=== PATIENT | male | born 1960 | race Two or more races ===

== ENCOUNTER 2016-09-26 12:13 | Inpatient (IN) | payer OTHER ==
[2016-09-26] MEDS ORDERED: PIPERACILLIN/TAZOB 3.375 GM/50 ML PRE-DOCKED IVPB ONE (15:31)
[2016-09-26] MEDS ORDERED: VANCOMYCIN 1,000 MG in DEXTROSE 5%-WATER - 250 ML IVPB ONE (15:31)
[2016-09-26 15:53] LABS: BASOPHIL 0.6 % (0-2.0); EOSINOPHIL 3.3 % (0-4.5); MCH 29.2 pg (25.7-33.7); MCHC 33.7 g/dl (32.0-35.9); MEAN CELL VOLUME 86.7 fl (80-96); MEAN PLT VOLUME 8.5 fl (7.5-11.1); NEUTROPHILS 59.2 % (42.8-82.8); PLATELET COUNT 267 K/MM3 (134-434); WHITE BLOOD COUNT 6.5 K/mm3 (4.0-10.0)
[2016-09-26 16:23] LABS: ALBUMIN 3.4 g/dl (3.4-5.0); ALK PHOS 91 U/L (45-117); ANION GAP 9 (8-16); BILIRUBIN,TOTAL 0.4 mg/dL (0.2-1.0); C-REACTIVE PROTEIN 6.6 MG/DL (0.00-0.3); CALCIUM 8.3 mg/dL (8.5-10.1); CO2 29 mmol/L (21-32); CREATININE 1.1 mg/dL (0.7-1.3); GLUCOSE,RANDOM 119 mg/dL (74-106); SGOT/AST 17 U/L (15-37); SGPT/ALT 19 U/L (12-78)
[2016-09-26 16:24] LABS: INR 0.99 (0.82-1.09); PROTHROMBIN TIME (PATIENT) 10.9 SEC (9.98-11.88)
--- NOTE | 2016-09-26 16:25 | PDOC ---
History of Present Illness - General Chief Complaint: Wound Infection Stated Complaint: SWOLLEN RT LEG (WOUND CARE SENT) Time Seen by Provider: 09/26/16 16:24 Past History - Past Medical History Allergies/Adverse Reactions: Allergies Allergy/AdvReac Type Severity Reaction Status Date / Time No Known Drug Allergies Allergy Verified 09/26/16 12:31 Home Medications: Ambulatory Orders Insulin Pump Cartridge [T:Flex] 1 each SQ ASDIR 04/25/16 Collagenase Clostridium Hist. [Collagenase] 1 each MC DAILY 09/26/16 Silver Sulfadiazine [Silvadene] 1 applic TP DAILY 09/26/16 Anemia: No Asthma: No Cancer: No Cardiac Disorders: No CVA: No COPD: No CHF: No Dementia: No Diabetes: Yes GI Disorders: No Disorders: No HTN: Yes Hypercholesterolemia: No Liver Disease: No Seizures: No Thyroid Disease: No - Surgical History Abdominal Surgery: No Appendectomy: No Cardiac Surgery: No Cholecystectomy: No Lung Surgery: No Neurologic Surgery: No Orthopedic Surgery: Yes (amputation all toes left foot) - Psycho/Social/Smoking Cessation Hx Anxiety: No Suicidal Ideation: No Smoking History: Never smoked Have you smoked in the past 12 months: No Hx Alcohol Use: No Drug/Substance Use Hx: No Substance Use Type: None Hx Substance Use Treatment: No *Physical Exam - Vital Signs Last Vital Signs Temp Pulse Resp BP Pulse Ox 98.1 F 82 19 165/85 98 09/26/16 12:31 09/26/16 12:31 09/26/16 12:31 09/26/16 12:31 09/26/16 12:31 ED Treatment Course - LABORATORY CBC & Chemistry Diagram: 09/26/16 15:31 09/26/16 15:31 - ADDITIONAL ORDERS Additional order review: Laboratory Results 09/26/16 15:31 Sodium 137 Potassium 4.3 Chloride 99 Carbon Dioxide 29 Anion Gap 9 BUN 18 Creatinine 1.1 Creat Clearance w eGFR > 60 Random Glucose 119 H D Calcium 8.3 L Total Bilirubin 0.4 D AST 17 ALT 19 D Alkaline Phosphatase 91 C-Reactive Protein 6.6 H D Total Protein 7.0 Albumin 3.4 D 09/26/16 15:31 RBC 4.01 MCV 86.7 MCHC 33.7 RDW 15.0 MPV 8.5 Neutrophils % 59.2 D Lymphocytes % 28.7 D Monocytes % 8.2 Eosinophils % 3.3 D Basophils % 0.6 - Medications Given in the ED: ED Medications Discontinued Medications Generic Name Dose Route Start Last Admin Trade Name Freq PRN Reason Stop Dose Admin Piperacillin Sod/Tazobactam Sod 3.375 gm 09/26/16 15:31 09/26/16 15:56 Zosyn 3.375gm Ivpb (Pre-Docked) IVPB 09/26/16 15:32 3.375 gm ONCE ONE Administration Protocol
--- NOTE | 2016-09-26 17:40 | PDOC ---
History of Present Illness - History of Present Illness Initial Comments: 09/26/16 18:07 The patient is a 56 year old male with a past medical hx of insulin dependent diabetes and peripheral vascular disease who presents to the ED for evaluation of a right foot wound. The patient notes he was seen in wound care today and they were debriding his ulcer on his right heel. The patient was sent to the ED by the wound care Doctor for admission. The patient denies any fever, chills The patient denies any abdominal pain, nausea, vomiting, diarrhea Social: Denies tobacco or alcohol use <Nesha Lee - Last Filed: 09/26/16 19:57> <Dayna Garcia - Last Filed: 09/27/16 02:43> - General Chief Complaint: Wound Infection Stated Complaint: SWOLLEN RT LEG (WOUND CARE SENT) Time Seen by Provider: 09/26/16 16:24 Past History <Nesha Lee - Last Filed: 09/26/16 19:57> - Past Medical History Anemia: No Asthma: No Cancer: No Cardiac Disorders: No CVA: No COPD: No CHF: No Dementia: No Diabetes: Yes GI Disorders: No Disorders: No HTN: Yes Hypercholesterolemia: No Liver Disease: No Seizures: No Thyroid Disease: No - Surgical History Abdominal Surgery: No Appendectomy: No Cardiac Surgery: No Cholecystectomy: No Lung Surgery: No Neurologic Surgery: No Orthopedic Surgery: Yes (amputation all toes left foot) - Psycho/Social/Smoking Cessation Hx Anxiety: No Suicidal Ideation: No Smoking History: Never smoked Have you smoked in the past 12 months: No Hx Alcohol Use: No Drug/Substance Use Hx: No Substance Use Type: None Hx Substance Use Treatment: No <Dayna Garcia - Last Filed: 09/27/16 02:43> - Past Medical History Allergies/Adverse Reactions: Allergies Allergy/AdvReac Type Severity Reaction Status Date / Time No Known Drug Allergies Allergy Verified 09/26/16 12:31 Home Medications: Ambulatory Orders Insulin Pump Cartridge [T:Flex] 1 each SQ ASDIR 04/25/16 Collagenase Clostridium Hist. [Collagenase] 1 each MC DAILY 09/26/16 Silver Sulfadiazine [Silvadene] 1 applic TP DAILY 09/26/16 Review of Systems - Review of Systems Able to Perform ROS?: Yes Comments:: 09/26/16 18:07 09/26/16 18:07 CONSTITUTIONAL: Absent: fever, chills, diaphoresis, generalized weakness, malaise, loss of appetite HEENT: Absent: rhinorrhea, nasal congestion, throat pain, throat swelling, difficulty swallowing, mouth swelling, ear pain, eye pain, visual Changes CARDIOVASCULAR: Absent: chest pain, syncope, palpitations, irregular heart rate, lightheadedness , peripheral edema RESPIRATORY: Absent: cough, shortness of breath, dyspnea with exertion, orthopnea, wheezing, stridor, hemoptysis GASTROINTESTINAL: Absent: abdominal pain, abdominal distension, nausea, vomiting, diarrhea, constipation, melena, hematochezia GENITOURINARY: Absent: dysuria, frequency, urgency, hesitancy, hematuria, flank pain, genital pain MUSCULOSKELETAL: Absent: myalgia, arthralgia, joint swelling SKIN: +Wound to right heel. Absent: itching, pallor HEMATOLOGIC/IMMUNOLOGIC: Absent: easy bleeding, easy bruising, lymphadenopathy, frequent infections ENDOCRINE: Absent: unexplained weight gain, unexplained weight loss, heat intolerance, cold intolerance NEUROLOGIC: Absent: headache, focal weakness or paresthesias, dizziness, unsteady gait, seizure, mental status changes, bladder or bowel incontinence PSYCHIATRIC: Absent: anxiety, depression, suicidal or homicidal ideation, hallucinations. <Nesha Lee - Last Filed: 09/26/16 19:57> *Physical Exam - Vital Signs Last Vital Signs Temp Pulse Resp BP Pulse Ox 98.1 F 82 19 165/85 98 09/26/16 12:31 09/26/16 12:31 09/26/16 12:31 09/26/16 12:31 09/26/16 12:31 - Physical Exam Comments: 09/26/16 18:03 GENERAL: Well developed, well nourished. Awake and alert. No acute distress. HEENT: Normocephalic, atraumatic. PERRLA, EOMI. No conjunctival pallor. Sclera are non- icteric. Moist mucous membranes. Oropharynx is clear. NECK: Supple. Full ROM. No JVD. Carotid pulses 2+ and symmetric, without bruits. No thyromegaly. No lymphadenopathy. CARDIOVASCULAR: Regular rate and rhythm. No murmurs, rubs, or gallops. Distal pulses are 2+ and symmetric. PULMONARY: No evidence of respiratory distress. Lungs clear to auscultation bilaterally. No wheezing, rales or rhonchi. ABDOMINAL: Soft. Non-tender. Non-distended. No rebound or guarding. No organomegaly. Normoactive bowel sounds. MUSCULOSKELETAL Normal range of motion at all joints. No bony deformities or tenderness. No CVA tenderness. EXTREMITIES: +Right lower extremity is swollen, erythematous, and tender. Ulcer to the right heel, all toes amputated on the left foot, amputated pinky toe on right foot. No cyanosis. No clubbing. No edema. No calf tenderness. SKIN: Warm and dry. Normal capillary refill. No jaundice. NEUROLOGICAL: Alert, awake, appropriate. Cranial nerves 2-12 intact. No deficits to light touch and temperature in face, upper extremities and lower extremities. No motor deficits in the in face, upper extremities and lower extremities. PSYCHIATRIC: Cooperative. Good eye contact. Appropriate mood and affect. <Nesha Lee - Last Filed: 09/26/16 19:57> - Vital Signs Last Vital Signs Temp Pulse Resp BP Pulse Ox 98.1 F 82 19 165/85 98 09/26/16 12:31 09/26/16 12:31 09/26/16 12:31 09/26/16 12:31 09/26/16 12:31 <Dayna Garcia - Last Filed: 09/27/16 02:43> Heart Score/ECG Review - ECG Impressions Comment:: 09/26/16 19:[address] Garcia NSR at a rate of 77 bpm Normal EKG <Nesha Lee - Last Filed: 09/26/16 19:57> ED Treatment Course - LABORATORY CBC & Chemistry Diagram: 09/26/16 15:31 09/26/16 15:31 - ADDITIONAL ORDERS Additional order review: Laboratory Results 09/26/16 09/26/16 15:31 15:31 INR 0.99 Sodium 137 Potassium 4.3 Chloride 99 Carbon Dioxide 29 Anion Gap 9 BUN 18 Creatinine 1.1 Creat Clearance w eGFR > 60 Random Glucose 119 H D Calcium 8.3 L Total Bilirubin 0.4 D AST 17 ALT 19 D Alkaline Phosphatase 91 C-Reactive Protein 6.6 H D Total Protein 7.0 Albumin 3.4 D 09/26/16 15:31 RBC 4.01 MCV 86.7 MCHC 33.7 RDW 15.0 MPV 8.5 Neutrophils % 59.2 D Lymphocytes % 28.7 D Monocytes % 8.2 Eosinophils % 3.3 D Basophils % 0.6 - Medications Given in the ED: ED Medications Discontinued Medications Generic Name Dose Route Start Last Admin Trade Name Freq PRN Reason Stop Dose Admin Vancomycin HCl 1,000 mg/ 250 mls @ 250 mls/hr 09/26/16 15:31 09/26/16 16:24 Dextrose IVPB 09/26/16 16:30 250 mls/hr ONCE ONE Administration Protocol Piperacillin Sod/Tazobactam Sod 3.375 gm 09/26/16 15:31 09/26/16 15:56 Zosyn 3.375gm Ivpb (Pre-Docked) IVPB 09/26/16 15:32 3.375 gm ONCE ONE Administration Protocol <Nesha Lee - Last Filed: 09/26/16 19:57> - LABORATORY CBC & Chemistry Diagram: 09/26/16 15:31 09/26/16 15:31 - ADDITIONAL ORDERS Additional order review: Laboratory Results 09/26/16 09/26/16 15:31 15:31 INR 0.99 Sodium 137 Potassium 4.3 Chloride 99 Carbon Dioxide 29 Anion Gap 9 BUN 18 Creatinine 1.1 Creat Clearance w eGFR > 60 Random Glucose 119 H D Calcium 8.3 L Total Bilirubin 0.4 D AST 17 ALT 19 D Alkaline Phosphatase 91 C-Reactive Protein 6.6 H D Total Protein 7.0 Albumin 3.4 D 09/26/16 15:31 RBC 4.01 MCV 86.7 MCHC 33.7 RDW 15.0 MPV 8.5 Neutrophils % 59.2 D Lymphocytes % 28.7 D Monocytes % 8.2 Eosinophils % 3.3 D Basophils % 0.6 - RADIOLOGY Radiology Studies Ordered: Category Date Time Status CHEST PA & LAT [RAD] Stat Radiology 09/26/16 16:45 Taken - Medications Given in the ED: ED Medications Discontinued Medications Generic Name Dose Route Start Last Admin Trade Name Freq PRN Reason Stop Dose Admin Vancomycin HCl 1,000 mg/ 250 mls @ 250 mls/hr 09/26/16 15:31 09/26/16 16:24 Dextrose IVPB 09/26/16 16:30 250 mls/hr ONCE ONE Administration Protocol Piperacillin Sod/Tazobactam Sod 3.375 gm 09/26/16 15:31 09/26/16 15:56 Zosyn 3.375gm Ivpb (Pre-Docked) IVPB 09/26/16 15:32 3.375 gm ONCE ONE Administration Protocol <Dayna Garcia - Last Filed: 09/27/16 02:43> Medical Decision Making - Medical Decision Making 09/26/16 18:[address] Gomez at 17:45, awaiting call back Paged Dr. Gomez for a second time at 18:33, awaiting call back. <Nesha Lee - Last Filed: 09/26/16 19:57> - Medical Decision Making 09/27/16 02:42 56 yo male referred the [facility] for admission for rt leg cellulitis -pt received vanco ,zosyn [facility] PVD,DIabetes <Dayna Garcia - Last Filed: 09/27/16 02:43> *DC/Admit/Observation/Transfer - Attestations Scribe Attestion: 09/26/16 18:04 Documentation prepared by Nesha Lee, acting as medical physiologist for Dayna Garcia MD/DO. <Nesha Lee - Last Filed: 09/26/16 19:57> - Discharge Dispostion Admit: Yes <Dayna Garcia - Last Filed: 09/27/16 02:43> Diagnosis at time of Disposition: Diabetes mellitus Qualifiers: Diabetes mellitus type: type 1 Diabetes mellitus complication status: with skin complications Diabetes mellitus complication detail: with foot ulcer Qualified Code(s): E10.621 - Type 1 diabetes mellitus with foot ulcer Diabetic foot ulcer Qualifiers: Diabetic foot ulcer location: heel Diabetes mellitus type: type 1 Laterality: right Non-pressure ulcer stage: with necrosis of muscle Qualified Code(s): E10.621 - Type 1 diabetes mellitus with foot ulcer Cellulitis Qualifiers: Site of cellulitis: extremity Site of cellulitis of extremity: lower extremity Laterality: right Qualified Code(s): L03.115 - Cellulitis of right lower limb - Referrals
[2016-09-26 19:36] LABS: ERYTHROCYTE SEDIMENTATION RATE 58 mm/hr (0-20)
[2016-09-26] MEDS ORDERED: ACETAMINOPHEN 325 MG TABLET (FP) PO PRN (20:20)
[2016-09-26] MEDS: HEPARIN NA (PORCINE) 5,000 UNITS/ML 1ML VIAL SQ SCH (22:30)
[2016-09-27] MEDS ORDERED: HEPARIN NA (PORCINE) 5,000 UNITS/ML 1ML VIAL ONE ×2 (00:41→09:51)
[2016-09-27] MEDS ORDERED: PIPERACILLIN/TAZOB 3.375 GM/50 ML PRE-DOCKED IVPB ONE (02:00)
[2016-09-27 04:25] LABS: URINE APPEARANCE CLEAR; URINE COLOR LT. YELLOW; URINE GLUCOSE (UA) 2+ (NEGATIVE)
[2016-09-27 04:26] LABS: URINE BILIRUBIN NEGATIVE (NEGATIVE); URINE BLOOD NEGATIVE (NEGATIVE); URINE KETONE NEGATIVE (NEGATIVE); URINE LEUK ESTERASE NEGATIVE (NEGATIVE); URINE NITRITE NEGATIVE (NEGATIVE); URINE PROTEIN NEGATIVE (NEGATIVE); URINE UROBILINOGEN 0.2 E.U/dl E.U./dl (0.2-1.0)
[2016-09-27 07:35] LABS: EOSINOPHIL 4.6 % (0-4.5); MCH 28.5 pg (25.7-33.7); MCHC 32.5 g/dl (32.0-35.9); MEAN CELL VOLUME 87.6 fl (80-96); MEAN PLT VOLUME 8.1 fl (7.5-11.1); NEUTROPHILS 56.5 % (42.8-82.8); PLATELET COUNT 232 K/MM3 (134-434); RDW 14.5 % (11.9-15.9); WHITE BLOOD COUNT 5.4 K/mm3 (4.0-10.0)
[2016-09-27 08:14] LABS: ALBUMIN 2.9 g/dl (3.4-5.0); ANION GAP 10 (8-16); BILIRUBIN,TOTAL 0.5 mg/dL (0.2-1.0); CALCIUM 7.9 mg/dL (8.5-10.1); CO2 25 mmol/L (21-32); CREATININE 1.1 mg/dL (0.7-1.3); GLUCOSE,RANDOM 226 mg/dL (74-106); SGOT/AST 14 U/L (15-37); SGPT/ALT 17 U/L (12-78); TOT PROT 6.3 g/dl (6.4-8.2)
[2016-09-27 08:15] LABS: ALK PHOS 80 U/L (45-117)
--- NOTE | 2016-09-27 08:29 | PN ---
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 Told to take surpresive antibiotics ? Bactrim. He was seen in off though not recently. Periodic debridement of right heel in wound care center with recent debridement. Now with fever and redness RLE. - Current Medication List Current Medications: Active Medications Acetaminophen (Tylenol -) 650 mg PO Q4H PRN PRN Reason: FEVER OR PAIN Heparin Sodium (Porcine) (Heparin -) 5,000 unit SQ BID CHERYL Last Admin: 09/26/16 22:30 Dose: 5,000 unit Non-Formulary Medication (Insulin Pump Cartridge [T:Flex]) 1 each SQ ASDIR CHERYL Piperacillin Sod/Tazobactam Sod (Zosyn 3.375gm Ivpb (Pre-Docked)) 3.375 gm IVPB Q8H-IV CHERYL PRN Reason: Protocol Silver Sulfadiazine (Silvadene -) 1 applic TP DAILY CHERYL - Objective Vital Signs: Vital Signs Temperature 97.8 F 09/27/16 06:26 Pulse Rate 76 09/27/16 06:26 Respiratory Rate 18 09/27/16 06:26 Blood Pressure 137/72 09/27/16 06:26 O2 Sat by Pulse Oximetry (%) 97 09/27/16 06:26 Extremities: Yes: Erythema, Other (erythema right leg heel ulcer mostly closed some drainage noted) Labs: CBC, BMP 09/27/16 07:00 09/27/16 07:00 INR, PTT INR 0.99 (0.82-1.09) 09/26/16 15:31 Problem List - Problems (1) Cellulitis Code(s): L03.90 - CELLULITIS, UNSPECIFIED Qualifiers: Site of cellulitis: extremity Site of cellulitis of extremity: lower extremity Laterality: right Qualified Code(s): L03.115 - Cellulitis of right lower limb (2) Osteomyelitis of foot Code(s): M86.9 - OSTEOMYELITIS, UNSPECIFIED (3) Diabetes mellitus Code(s): E11.9 - TYPE 2 DIABETES MELLITUS WITHOUT COMPLICATIONS Qualifiers: Diabetes mellitus type: type 1 Diabetes mellitus complication status: with skin complications Diabetes mellitus complication detail: with foot ulcer Qualified Code(s): E10.621 - Type 1 diabetes mellitus with foot ulcer ; L97.509 - Non-pressure chronic ulcer of other part of unspecified foot with unspecified severity Assessment/Plan Microbiology 04/25/16 18:30 Ulcer Gram Stain - Final 04/25/16 18:30 Ulcer Wound Culture - Final S Aureus Diphtheroid/Corynebacterium Morganella Morganii Laboratory Tests 04/28/16 09/27/16 09/27/16 11:00 07:00 07:00 WBC 5.4 Hgb 11.0 L Hct 33.7 L Plt Count 232 ESR 125 H Creat Clearance w eGFR > 60 Assessment Chronic osteo calcaneus Celllulitis RLE IDDM Plan Cultures Vancomycin and Zosyn ESR and CRP Deb YUAN
[2016-09-27 08:57] LABS: C-REACTIVE PROTEIN 4.1 MG/DL (0.00-0.3)
[2016-09-27] MEDS ORDERED: VANCOMYCIN 1 GRAM (PRE-DOCKED) 250 ML IVPB ONE (09:51)
[2016-09-27] MEDS ORDERED: PIPERACILLIN/TAZOB 3.375 GM/50 ML PRE-DOCKED IVPB SCH (10:00)
[2016-09-27] MEDS: SILVER SULFADIAZINE 1% TOP CREAM 50 GM JAR TP SCH (10:06)
[2016-09-27] MEDS: HEPARIN NA (PORCINE) 5,000 UNITS/ML 1ML VIAL SQ SCH ×2 (10:06→21:17)
[2016-09-27] MEDS: PIPERACILLIN/TAZOB 4.5 GM 100 ML IVPB SCH ×2 (10:07→17:01)
--- NOTE | 2016-09-27 10:20 | HP ---
Admitting History and Physical - Admission History of Present Illness: 56 year old male with a past medical hx of insulin dependent diabetes and peripheral vascular disease who presents to the ED for evaluation of a right foot wound. The patient notes he was seen in wound care today and they were debriding his ulcer on his right heel. The patient was sent to the ED by the wound care Doctor for admission. - Past Medical History WEB APPLICATIONS ARCHITECT: No: CVA Cardiovascular: Yes: HTN, Hyperlipdemia Heme/Onc: No: Anemia Infectious Disease: Yes: Other (FOOT ULCER) Musculoskeletal: Yes: Other (FOOT ULCER AND REDNESS) Endocrine: Yes: Diabetes Mellitus - Smoking History Smoking history: Never smoked Have you smoked in the past 12 months: No - Alcohol/Substance Use Hx Alcohol Use: No Home Medications - Allergies Allergies/Adverse Reactions: Allergies Allergy/AdvReac Type Severity Reaction Status Date / Time No Known Drug Allergies Allergy Verified 09/26/16 12:31 - Home Medications Home Medications: Ambulatory Orders Insulin Pump Cartridge [T:Flex] 1 each SQ ASDIR 04/25/16 Collagenase Clostridium Hist. [Collagenase] 1 each MC DAILY 09/26/16 Silver Sulfadiazine [Silvadene] 1 applic TP DAILY 09/26/16 Review of Systems - Review of Systems Cardiovascular: denies: Chest Pain Respiratory: denies: SOB Gastrointestinal: denies: Abdominal Pain Genitourinary: reports: No Symptoms Musculoskeletal: reports: Extremity Pain Integumentary: reports: Erythema (OF RT LEG) Physical Examination Vital Signs: Vital Signs Temperature 97.8 F 09/27/16 06:26 Pulse Rate 76 09/27/16 06:26 Respiratory Rate 18 09/27/16 06:26 Blood Pressure 137/72 09/27/16 06:26 O2 Sat by Pulse Oximetry (%) 97 09/27/16 06:26 Cardiovascular: Yes: Regular Rate and Rhythm Respiratory: Yes: Regular, CTA Bilaterally Gastrointestinal: Yes: Normal Bowel Sounds, Soft Extremities: Yes: Erythema (RT LEG) Wound/Incision: Yes: Dressing Removed, Other (SMALL ULCER) Labs: CBC, BMP 09/27/16 07:00 09/27/16 07:00 Problem List - Problems (1) Cellulitis Assessment/Plan: IV ABX ID CONSULT--D/W DR HOWARD Code(s): L03.90 - CELLULITIS, UNSPECIFIED Qualifiers: Site of cellulitis: extremity Site of cellulitis of extremity: lower extremity Laterality: right Qualified Code(s): L03.115 - Cellulitis of right lower limb (2) Diabetic foot ulcer Assessment/Plan: WOUND CARE ABX Code(s): E11.621 - TYPE 2 DIABETES MELLITUS WITH FOOT ULCER L97.509 - NON-PRESSURE CHRONIC ULCER OTH PRT UNSP FOOT W UNSP SEVERITY Qualifiers: Diabetic foot ulcer location: heel Diabetes mellitus type: type 1 Laterality: right Non-pressure ulcer stage: with necrosis of muscle Qualified Code(s): E10.621 - Type 1 diabetes mellitus with foot ulcer; L97.411 - Non-pressure chronic ulcer of right heel and midfoot limited to breakdown of skin (3) Diabetes mellitus Assessment/Plan: BGM INSULIN PUMP ENDO Code(s): E11.9 - TYPE 2 DIABETES MELLITUS WITHOUT COMPLICATIONS Qualifiers: Diabetes mellitus type: type 1 Diabetes mellitus complication status: with skin complications Diabetes mellitus complication detail: with foot ulcer Qualified Code(s): E10.621 - Type 1 diabetes mellitus with foot ulcer ; L97.509 - Non-pressure chronic ulcer of other part of unspecified foot with unspecified severity (4) Osteomyelitis of foot Assessment/Plan: PER ID Code(s): M86.9 - OSTEOMYELITIS, UNSPECIFIED
[2016-09-27] MEDS: VANCOMYCIN 1 GRAM (PRE-DOCKED) 250 ML IVPB SCH ×2 (10:30→21:16)
[2016-09-27 10:57] VITALS: BMI 34.4
--- NOTE | 2016-09-27 13:23 | EKG ---
Test Reason : Blood Pressure : / mmHG Vent. Rate : 077 BPM Atrial Rate : 077 BPM P-R Int : 164 ms QRS Dur : 084 ms QT Int : 384 ms P-R-T Axes : 020 028 014 degrees QTc Int : 434 ms NORMAL SINUS RHYTHM NORMAL ECG WHEN COMPARED WITH ECG OF 25-APR-2016 14:10, NO SIGNIFICANT CHANGE WAS FOUND Confirmed by DARY ZELAYA MD ([id number]) on 09/27/2016 1:23:16 PM Referred By: Confirmed By:DARY ZELAYA MD
--- NOTE | 2016-09-27 14:30 | CONS ---
INFECTIOUS DISEASE CONSULT DATE OF CONSULTATION: DATE OF DICTATION: 09/27/2016 HISTORY OF PRESENT ILLNESS: This is a 56-year-old male, known insulin-dependent diabetic who was admitted with redness and swelling of his right lower extremity. The patient is well known to our service as he had been previously evaluated by Dr. Jenna Bradley in April of 2016 for treatment of osteomyelitis of the right calcaneus. Based on wound cultures, the patient was appropriately treated with vancomycin and Ceftriaxone, which was continued as an outpatient through a PICC catheter. I had had opportunity to see the patient in followup, and he clinically was doing very well. However, because of concerns of persistent chronic osteomyelitis. I recommended keeping him on oral suppressive therapy for many months. He has been taking, I believe, Bactrim although he was not sure at this time. He has also been coming to the [facility] where Dr. Buenrostro has been doing periodic dbridements of a healed ulcer. This was done within the last 2 weeks, and last week the patient noted onset of redness, swelling with fever at home. He is admitted now for the same reason. PAST MEDICAL HISTORY: Insulin dependent diabetes and peripheral vascular disease. MEDICATIONS: Insulin pump cartridge, topical Silvadene to the wound. ALLERGIES: None known. SOCIAL HISTORY: . immigrant. No recent travel. Never smoked. No history of substance abuse. FAMILY HISTORY, ALL SYSTEMS AND REVIEW OF SYSTEMS. Reviewed and noncontributory. PHYSICAL EXAM: General: He was a pleasant alert male in no acute distress. Vital signs: The temperature was 97.8. Pulse 76. Blood pressure 137/72. Respirations 18. Lungs: The lungs were clear to percussion/auscultation. Heart: S1, S2, regular rhythm without audible murmur. Abdomen: The abdomen was soft, nontender without guarding or rebound. Normal active bowel sounds. Extremities reveal diffuse swelling and redness to the right lower extremity with an ulcer present on the right heel with some bloody drainage noted. No fluctuance was evident, and the leg appeared nontender. LABS: The white count is 5.4 with a hemoglobin of 11, platelets of 232, INR of 0.99. BUN 15, creatinine 1.1. ASSESSMENT: 56-year-old male with known chronic osteomyelitis, previous MRI of the lower extremity dated 04/26, consistent with a diagnosis of osteo. Recent excisional debridement performed, presents now with what appears to be cellulitis. The possibility exists that this may be related to recent debridement; however, a flare-up of his chronic osteomyelitis also considered. PLAN: 1. He has been on long-term suppressive antibiotic therapy. He will be treated with vancomycin and Zosyn pending blood and wound cultures. 2. Further recommendations to follow once cultures available Case was discussed with Dr. Chatterjee. SHUN HOPSON M.D. [id number]
--- NOTE | 2016-09-27 17:48 | PN ---
Progress Note (short form) - Note Progress Note: Vascular Surgery Pt seen and examined. Well known to wound care service. Right heel ulcer is healing well. Cellulitis is getting better. On iv antibiotics. Cont present care Ray Lazo DO
[2016-09-28] MEDS: PIPERACILLIN/TAZOB 4.5 GM 100 ML IVPB SCH ×3 (02:01→17:03)
[2016-09-28] MEDS: HEPARIN NA (PORCINE) 5,000 UNITS/ML 1ML VIAL SQ SCH ×2 (09:19→21:18)
[2016-09-28] MEDS: VANCOMYCIN 1 GRAM (PRE-DOCKED) 250 ML IVPB SCH ×2 (10:04→21:18)
--- NOTE | 2016-09-28 11:13 | PN ---
Progress Note, Physician Chief Complaint: patient using his inulin pump in bed no distress - Current Medication List Current Medications: Active Medications Acetaminophen (Tylenol -) 650 mg PO Q4H PRN PRN Reason: FEVER OR PAIN Heparin Sodium (Porcine) (Heparin -) 5,000 unit SQ BID [facility] Last Admin: 09/28/16 09:19 Dose: 5,000 unit Vancomycin HCl (Vancomycin (Pre-Docked)) 250 mls @ 166.667 mls/hr IVPB BID CHERYL PRN Reason: Protocol Last Admin: 09/28/16 10:04 Dose: 166.667 mls/hr Piperacillin Sod/Tazobactam Sod (Zosyn 4.5gm Ivpb (Pre-Docked)) 100 mls @ 200 mls/hr IVPB Q8H-IV CHERYL PRN Reason: Protocol Last Admin: 09/28/16 09:19 Dose: 200 mls/hr Losartan Potassium (Cozaar -) 50 mg PO DAILY [facility] Non-Formulary Medication (Insulin Pump Cartridge [T:Flex]) 1 each SQ ASDIR [facility] Silver Sulfadiazine (Silvadene -) 1 applic TP DAILY [facility] Last Admin: 09/27/16 10:06 Dose: Not Given - Objective Vital Signs: Vital Signs Temperature 98.6 F 09/28/16 09:02 Pulse Rate 78 09/28/16 09:02 Respiratory Rate 20 09/28/16 09:02 Blood Pressure 164/85 09/28/16 09:02 O2 Sat by Pulse Oximetry (%) 97 09/27/16 21:00 Constitutional: Yes: Calm, Obese Neck: Yes: Trachea Midline Cardiovascular: Yes: Regular Rate and Rhythm, S1, S2 Respiratory: Yes: CTA Bilaterally Gastrointestinal: Yes: Soft, Abdomen, Obese Extremities: Yes: Erythema (on right leg) Wound/Incision: Yes: Dressing Dry and Intact (on right foot) Neurological: Yes: Alert, Oriented Labs: CBC, BMP 09/27/16 07:00 09/27/16 07:00 INR, PTT INR 0.99 (0.82-1.09) 09/26/16 15:31 Problem List - Problems (1) Cellulitis Assessment/Plan: iv vancomycin wound care on board dvt ppx Code(s): L03.90 - CELLULITIS, UNSPECIFIED Qualifiers: Site of cellulitis: extremity Site of cellulitis of extremity: lower extremity Laterality: right Qualified Code(s): L03.115 - Cellulitis of right lower limb (2) Diabetic foot ulcer Assessment/Plan: dr dunia gomez patient Code(s): E11.621 - TYPE 2 DIABETES MELLITUS WITH FOOT ULCER L97.509 - NON-PRESSURE CHRONIC ULCER OTH PRT UNSP FOOT W UNSP SEVERITY Qualifiers: Diabetic foot ulcer location: heel Diabetes mellitus type: type 1 Laterality: right Non-pressure ulcer stage: with necrosis of muscle Qualified Code(s): E10.621 - Type 1 diabetes mellitus with foot ulcer; L97.411 - Non-pressure chronic ulcer of right heel and midfoot limited to breakdown of skin (3) Diabetes mellitus Assessment/Plan: uncontrolled on insulin pump bgm endo eval check lipid panel Code(s): E11.9 - TYPE 2 DIABETES MELLITUS WITHOUT COMPLICATIONS Qualifiers: Diabetes mellitus type: type 1 Diabetes mellitus complication status: with skin complications Diabetes mellitus complication detail: with foot ulcer Qualified Code(s): E10.621 - Type 1 diabetes mellitus with foot ulcer ; L97.509 - Non-pressure chronic ulcer of other part of unspecified foot with unspecified severity (4) HTN (hypertension) [facility] Code(s): I10 - ESSENTIAL (PRIMARY) HYPERTENSION
[2016-09-28] MEDS ORDERED: INSULIN (NOVOLOG) ASPART 100 UNITS/ML 10ML VIAL ONE (11:29)
[2016-09-28] MEDS: SILVER SULFADIAZINE 1% TOP CREAM 50 GM JAR TP SCH (11:38)
[2016-09-28] MEDS: LOSARTAN POTASSIUM 50 MG TABLET (FP) PO SCH (11:38)
--- NOTE | 2016-09-28 12:17 | CONSULT ---
Consult - text type - Consultation Consultation Note: Podiatry Consultation: 56 year old IDDM M, well known to me from [facility], presented yesterday to [facility] with redness/swelling to R lower leg and associated fever/chills for a few days at home. Patient being treated for R heel ulcer. Currently afebrile, VSS. JESSICA: R foot: dressing C/D/I, no active bleeding, no strikethrough. R inferior heel DM ulcer, strong granular base, hyperkeratotic margins, no probing to bone, no purulence, no fluctuance, no acute signs of infection in the heel locally. There is swelling and erythema to the lower leg/calf of the RLE. Minimal tenderness on palpation of posterior calf, no palpable cords. WBC: 5.4 ESR: 58 Wound Cx: GNBs Blood Cx: no growth x 24 hrs Imp: 56 year old IDDM M with R heel DM ulcer and RLE cellulitis 1. Needs IV abx per ID. 2. Heel wound actually progressing well. He will continue with local wound care and heel offloading measures. 3. Cellulitis should respond well with IV abx treatment. Consider Venous duplex for ? of DVT. 4. Glycemic control. 5. Will f/u with me upon discharge at [facility] on 10/03/16. No acute surgical intervention at this time. 6. Thanks for the courtesy of this consultation. Kathya Buenrostro DPM
[2016-09-29] MEDS: PIPERACILLIN/TAZOB 4.5 GM 100 ML IVPB SCH ×2 (01:20→09:18)
[2016-09-29 08:48] LABS: BASOPHIL 0.8 % (0-2.0); EOSINOPHIL 4.9 % (0-4.5); MCH 28.7 pg (25.7-33.7); MCHC 32.9 g/dl (32.0-35.9); MEAN CELL VOLUME 87.3 fl (80-96); MEAN PLT VOLUME 8.3 fl (7.5-11.1); NEUTROPHILS 59.8 % (42.8-82.8); PLATELET COUNT 271 K/MM3 (134-434); RDW 14.3 % (11.9-15.9); WHITE BLOOD COUNT 6.2 K/mm3 (4.0-10.0)
[2016-09-29 08:59] LABS: ALBUMIN 2.9 g/dl (3.4-5.0); ANION GAP 10 (8-16); BILIRUBIN,TOTAL 0.5 mg/dL (0.2-1.0); CALCIUM 8.1 mg/dL (8.5-10.1); CHOLESTEROL 186 mg/dL (50-200); CO2 27 mmol/L (21-32); COCKROFT - GAULT 116.4; GLUCOSE,RANDOM 184 mg/dL (74-106); LDL CHOLESTEROL (ONLY SJRH) 129 mg/dL (5-100); SGOT/AST 14 U/L (15-37); SGPT/ALT 25 U/L (12-78); TOT PROT 6.5 g/dl (6.4-8.2)
[2016-09-29 09:00] LABS: ALK PHOS 77 U/L (45-117)
[2016-09-29] MEDS: HEPARIN NA (PORCINE) 5,000 UNITS/ML 1ML VIAL SQ SCH ×2 (09:17→21:33)
[2016-09-29] MEDS: LOSARTAN POTASSIUM 50 MG TABLET (FP) PO SCH (09:17)
[2016-09-29] MEDS: SILVER SULFADIAZINE 1% TOP CREAM 50 GM JAR TP SCH (09:17)
[2016-09-29] MEDS ORDERED: VANCOMYCIN 1,000 MG in SODIUM CHLORIDE 250 ML IVPB SCH (10:00)
[2016-09-29] MEDS ORDERED: amLODIPine BESYLATE 5 MG TABLET (FP) PO SCH (10:00)
[2016-09-29] MEDS: INSULIN SLIDING SCALE (NOVOLOG) 1 VIAL SQ SCH ×3 (11:21→21:45)
--- NOTE | 2016-09-29 12:40 | PN ---
Progress Note, Physician Chief Complaint: patient seen and examined in bed no distress gettign iv abx - Current Medication List Current Medications: Active Medications Acetaminophen (Tylenol -) 650 mg PO Q4H PRN PRN Reason: FEVER OR PAIN Heparin Sodium (Porcine) (Heparin -) 5,000 unit SQ BID [facility] Last Admin: 09/29/16 09:17 Dose: 5,000 unit Piperacillin Sod/Tazobactam (Sod 4.5 gm/ Sodium Chloride) 100 mls @ 200 mls/hr IVPB Q8H-IV CHERYL PRN Reason: Protocol Stop: 10/04/16 02:29 Vancomycin HCl 1,000 mg/ (Sodium Chloride) 250 mls @ 166.667 mls/hr IVPB BID CHERYL PRN Reason: Protocol Stop: 10/04/16 11:29 Last Admin: 09/29/16 11:16 Dose: 166.667 mls/hr Insulin Aspart (Novolog Vial Sliding Scale -) 1 vial SQ ACHS [facility]ERY[facility] PRN Reason: Protocol Last Admin: 09/29/16 11:21 Dose: Not Given Insulin Detemir (Levemir Vial) 20 units SQ BID@0700,2200 [facility] Losartan Potassium (Cozaar -) 50 mg PO DAILY [facility] Last Admin: 09/29/16 09:17 Dose: 50 mg Silver Sulfadiazine (Silvadene -) 1 applic TP DAILY [facility] Last Admin: 09/29/16 09:17 Dose: 1 appful - Objective Vital Signs: Vital Signs Temperature 98.4 F 09/29/16 10:00 Pulse Rate 76 09/29/16 10:00 Respiratory Rate 20 09/29/16 10:00 Blood Pressure 132/67 09/29/16 10:00 O2 Sat by Pulse Oximetry (%) 98 09/28/16 21:00 Constitutional: Yes: Calm, Obese Cardiovascular: Yes: Regular Rate and Rhythm, S1, S2 Respiratory: Yes: CTA Bilaterally Gastrointestinal: Yes: Soft, Abdomen, Obese Edema: Yes Wound/Incision: Yes: Dressing Removed (heel wound seen erythema of right leg improving better than yesterday) Neurological: Yes: Alert, Oriented Labs: CBC, BMP 09/29/16 06:15 09/29/16 06:15 INR, PTT INR 0.99 (0.82-1.09) 09/26/16 15:31 Problem List - Problems (1) Cellulitis Assessment/Plan: iv vancomycin and zosyn per ID- duration per ID wound care on board dvt ppx Code(s): L03.90 - CELLULITIS, UNSPECIFIED Qualifiers: Site of cellulitis: extremity Site of cellulitis of extremity: lower extremity Laterality: right Qualified Code(s): L03.115 - Cellulitis of right lower limb (2) Diabetic foot ulcer Assessment/Plan: dr duque saw patient Code(s): E11.621 - TYPE 2 DIABETES MELLITUS WITH FOOT ULCER L97.509 - NON-PRESSURE CHRONIC ULCER OTH PRT UNSP FOOT W UNSP SEVERITY Qualifiers: Diabetic foot ulcer location: heel Diabetes mellitus type: type 1 Laterality: right Non-pressure ulcer stage: with necrosis of muscle Qualified Code(s): E10.621 - Type 1 diabetes mellitus with foot ulcer; L97.411 - Non-pressure chronic ulcer of right heel and midfoot limited to breakdown of skin (3) Diabetes mellitus Assessment/Plan: uncontrolled on insulin pump dano stop while in hosptial levemir bid with sliding scale bgm endo eval check lipid panel- ldld 129 will start crestor Code(s): E11.9 - TYPE 2 DIABETES MELLITUS WITHOUT COMPLICATIONS Qualifiers: Diabetes mellitus type: type 1 Diabetes mellitus complication status: with skin complications Diabetes mellitus complication detail: with foot ulcer Qualified Code(s): E10.621 - Type 1 diabetes mellitus with foot ulcer ; L97.509 - Non-pressure chronic ulcer of other part of unspecified foot with unspecified severity (4) HTN (hypertension) Assessment/Plan: losartan Code(s): I10 - ESSENTIAL (PRIMARY) HYPERTENSION
--- NOTE | 2016-09-29 14:38 | PN ---
Progress Note, Physician Chief Complaint: ID Vancomycin and Zosyn Doing well - Current Medication List Current Medications: Active Medications Acetaminophen (Tylenol -) 650 mg PO Q4H PRN PRN Reason: FEVER OR PAIN Heparin Sodium (Porcine) (Heparin -) 5,000 unit SQ BID [facility] Last Admin: 09/29/16 09:17 Dose: 5,000 unit Piperacillin Sod/Tazobactam (Sod 4.5 gm/ Sodium Chloride) 100 mls @ 200 mls/hr IVPB Q8H-IV [facility]ERYL PRN Reason: Protocol Stop: 10/04/16 02:29 Vancomycin HCl 1,000 mg/ (Sodium Chloride) 250 mls @ 166.667 mls/hr IVPB BID [facility]ERYL PRN Reason: Protocol Stop: 10/04/16 11:29 Last Admin: 09/29/16 11:16 Dose: 166.667 mls/hr Insulin Aspart (Novolog Vial Sliding Scale -) 1 vial SQ ACHS [facility]ERYL PRN Reason: Protocol Last Admin: 09/29/16 11:21 Dose: Not Given Insulin Detemir (Levemir Vial) 20 units SQ BID@0700,2200 [facility] Losartan Potassium (Cozaar -) 50 mg PO DAILY [facility] Last Admin: 09/29/16 09:17 Dose: 50 mg Rosuvastatin Calcium (Crestor -) 10 mg PO HS [facility] Silver Sulfadiazine (Silvadene -) 1 applic TP DAILY [facility] Last Admin: 09/29/16 09:17 Dose: 1 appful - Objective Vital Signs: Vital Signs Temperature 98.4 F 09/29/16 10:00 Pulse Rate 76 09/29/16 10:00 Respiratory Rate 20 09/29/16 10:00 Blood Pressure 132/67 09/29/16 10:00 O2 Sat by Pulse Oximetry (%) 95 09/29/16 09:00 Constitutional: Yes: Well Nourished, No Distress HENT: Yes: WNL, Atraumatic Neck: Yes: WNL, Supple Cardiovascular: Yes: Regular Rate and Rhythm, S1, S2. No: Murmur Respiratory: Yes: WNL, Regular, CTA Bilaterally Gastrointestinal: Yes: WNL, Normal Bowel Sounds. No: Tenderness, Tenderness, Epigastrium Extremities: Yes: Erythema, Other (Erythema improved Heel ulcer dry) Labs: CBC, BMP 09/29/16 06:15 09/29/16 06:15 INR, PTT INR 0.99 (0.82-1.09) 09/26/16 15:31 Problem List - Problems (1) Cellulitis Code(s): L03.90 - CELLULITIS, UNSPECIFIED Qualifiers: Site of cellulitis: extremity Site of cellulitis of extremity: lower extremity Laterality: right Qualified Code(s): L03.115 - Cellulitis of right lower limb (2) Osteomyelitis of foot Code(s): M86.9 - OSTEOMYELITIS, UNSPECIFIED (3) Diabetes mellitus Code(s): E11.9 - TYPE 2 DIABETES MELLITUS WITHOUT COMPLICATIONS Qualifiers: Diabetes mellitus type: type 1 Diabetes mellitus complication status: with skin complications Diabetes mellitus complication detail: with foot ulcer Qualified Code(s): E10.621 - Type 1 diabetes mellitus with foot ulcer ; L97.509 - Non-pressure chronic ulcer of other part of unspecified foot with unspecified severity Assessment/Plan Microbiology 09/27/16 10:33 Foot - Right Plantar Gram Stain - Final 09/27/16 10:33 Foot - Right Plantar Wound Culture - Preliminary Escherichia Coli 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 09/26/16 15:37 Blood - Peripheral Venous Blood Culture - Preliminary NO GROWTH OBTAINED AFTER 48 HOURS, INCUBATION TO CONTINUE FOR 3 DAYS. Laboratory Tests 09/28/16 09/29/16 09/29/16 06:15 06:15 06:15 WBC 6.2 Hgb 11.8 Hct 35.8 ESR 56 H BUN 14 Creatinine 1.0 Assessment Cellulitis of right leg improving Chronic calcaneal osteomyelitis Plan Ertepenem today and tomorrow then home tomorrow Resume Bactrim at home Deb YUAN
[2016-09-29] MEDS: INSULIN PUMP CARTRIDGE SQ SCH ×3 (16:39→17:39)
[2016-09-29] MEDS ORDERED: PIPERACILLIN/TAZOB 4.5 GM 4.5 GM in SODIUM CHLORIDE 100 ML IVPB SCH (18:00)
[2016-09-29] MEDS: ROSUVASTATIN CA 10 MG TABLET (FP) PO SCH ×2 (21:39→21:50)
[2016-09-29] MEDS: INSULIN DETEMIR 100 UNITS/ML MDV SQ SCH (21:43)
[2016-09-30] MEDS: INSULIN SLIDING SCALE (NOVOLOG) 1 VIAL SQ SCH ×2 (06:21→11:59)
[2016-09-30] MEDS: INSULIN DETEMIR 100 UNITS/ML MDV SQ SCH (06:21)
--- NOTE | 2016-09-30 08:31 | PN ---
Progress Note, Physician Chief Complaint: Ertepenem No complaints - Current Medication List Current Medications: Active Medications Acetaminophen (Tylenol -) 650 mg PO Q4H PRN PRN Reason: FEVER OR PAIN Heparin Sodium (Porcine) (Heparin -) 5,000 unit SQ BID [facility] Last Admin: 09/29/16 21:33 Dose: 5,000 unit Ertapenem 1 gm/ Sodium (Chloride) 50 mls @ 100 mls/hr IVPB DAILY [facility] Insulin Aspart (Novolog Vial Sliding Scale -) 1 vial SQ ACHS [facility] PRN Reason: Protocol Last Admin: 09/30/16 06:21 Dose: 2 unit Insulin Detemir (Levemir Vial) 20 units SQ BID@0700,2200 [facility] Last Admin: 09/30/16 06:21 Dose: 20 units Losartan Potassium (Cozaar -) 50 mg PO DAILY [facility] Last Admin: 09/29/16 09:17 Dose: 50 mg Rosuvastatin Calcium (Crestor -) 10 mg PO HS [facility] Last Admin: 09/29/16 21:50 Dose: Not Given Silver Sulfadiazine (Silvadene -) 1 applic TP DAILY [facility] Last Admin: 09/29/16 09:17 Dose: 1 appful - Objective Vital Signs: Vital Signs Temperature 98 F 09/30/16 06:00 Pulse Rate 78 09/30/16 06:00 Respiratory Rate 18 09/30/16 06:00 Blood Pressure 162/79 09/30/16 06:00 O2 Sat by Pulse Oximetry (%) 96 09/29/16 21:00 Neck: Yes: WNL, Supple Cardiovascular: Yes: Regular Rate and Rhythm, S1, S2 Respiratory: Yes: WNL, Regular, CTA Bilaterally Gastrointestinal: Yes: WNL, Normal Bowel Sounds, Soft Extremities: Yes: Erythema, Other (Subsiding) Labs: CBC, BMP 09/29/16 06:15 09/29/16 06:15 INR, PTT INR 0.99 (0.82-1.09) 09/26/16 15:31 Problem List - Problems (1) Cellulitis Code(s): L03.90 - CELLULITIS, UNSPECIFIED Qualifiers: Site of cellulitis: extremity Site of cellulitis of extremity: lower extremity Laterality: right Qualified Code(s): L03.115 - Cellulitis of right lower limb (2) Osteomyelitis of foot Code(s): M86.9 - OSTEOMYELITIS, UNSPECIFIED (3) Diabetes mellitus Code(s): E11.9 - TYPE 2 DIABETES MELLITUS WITHOUT COMPLICATIONS Qualifiers: Diabetes mellitus type: type 1 Diabetes mellitus complication status: with skin complications Diabetes mellitus complication detail: with foot ulcer Qualified Code(s): E10.621 - Type 1 diabetes mellitus with foot ulcer ; L97.509 - Non-pressure chronic ulcer of other part of unspecified foot with unspecified severity Assessment/Plan Microbiology 09/27/16 10:33 Foot - Right Plantar Gram Stain - Final 09/27/16 10:33 Foot - Right Plantar Wound Culture - Final 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 09/26/16 15:37 Blood - Peripheral Venous Blood Culture - Preliminary NO GROWTH OBTAINED AFTER 72 HOURS, INCUBATION TO CONTINUE FOR 2 DAYS. Laboratory Tests 09/29/16 09/29/16 06:15 06:15 WBC 6.2 Hgb 11.8 Plt Count 271 BUN 14 Creatinine 1.0 Assessment Cellulitis improved minimal erythema now Plan Dose Ertepenem today then discharge Bactrim at home DS bid Office followup Deb YUAN
[2016-09-30] MEDS ORDERED: PT OWN MED DRAWER 7, Y5N ONE (09:35)
[2016-09-30] MEDS: HEPARIN NA (PORCINE) 5,000 UNITS/ML 1ML VIAL SQ SCH (09:43)
[2016-09-30] MEDS: LOSARTAN POTASSIUM 50 MG TABLET (FP) PO SCH (09:43)
[2016-09-30] MEDS: SILVER SULFADIAZINE 1% TOP CREAM 50 GM JAR TP SCH (09:47)
[2016-09-30] MEDS ORDERED: ERTAPENEM SODIUM 1 GM/50 ML PRE-DOCKED IVPB SCH (10:00)
[2016-09-30] MEDS ORDERED: ERTAPENEM SODIUM 1 GM in SODIUM CHLORIDE 50 ML IVPB SCH (10:00)
--- NOTE | 2016-09-30 10:54 | DS ---
Physical Examination Vital Signs: Vital Signs Temperature 98 F 09/30/16 06:00 Pulse Rate 78 09/30/16 06:00 Respiratory Rate 18 09/30/16 06:00 Blood Pressure 162/79 09/30/16 06:00 O2 Sat by Pulse Oximetry (%) 96 09/29/16 21:00 Findings/Remarks: had d/w patient in good spirits family at bedside Constitutional: Yes: Calm Neck: Yes: WNL Cardiovascular: Yes: WNL Respiratory: Yes: WNL Gastrointestinal: Yes: WNL Wound/Incision: Yes: Dressing Dry and Intact Labs: CBC, BMP 09/29/16 06:15 09/29/16 06:15 Discharge Summary Reason For Visit: DIAB MELLITIS/DIABETIC FT ULCER/CELLULITIS Current Active Problems Cellulitis (Acute) Diabetic foot ulcer (Acute) HTN (hypertension) (Acute) Diabetes mellitus (Chronic) Hospital Course: (1) Cellulitis Assessment/Plan: iv vancomycin and zosyn per ID- -> will go home on po abx wound care on board dvt ppx Code(s): L03.90 - CELLULITIS, UNSPECIFIED Qualifiers: Site of cellulitis: extremity Site of cellulitis of extremity: lower extremity Laterality: right Qualified Code(s): L03.115 - Cellulitis of right lower limb (2) Diabetic foot ulcer Assessment/Plan: dr dunia gomez patient Code(s): E11.621 - TYPE 2 DIABETES MELLITUS WITH FOOT ULCER L97.509 - NON-PRESSURE CHRONIC ULCER OTH PRT UNSP FOOT W UNSP SEVERITY Qualifiers: Diabetic foot ulcer location: heel Diabetes mellitus type: type 1 Laterality: right Non-pressure ulcer stage: with necrosis of muscle Qualified Code(s): E10.621 - Type 1 diabetes mellitus with foot ulcer; L97.411 - Non-pressure chronic ulcer of right heel and midfoot limited to breakdown of skin (3) Diabetes mellitus Assessment/Plan: uncontrolled on insulin pump dano stop while in hosptial levemir bid with sliding scale bgm has insulin pulm -> outpt f/u endo eval check lipid panel- ldld 129 will start crestor Code(s): E11.9 - TYPE 2 DIABETES MELLITUS WITHOUT COMPLICATIONS Qualifiers: Diabetes mellitus type: type 1 Diabetes mellitus complication status: with skin complications Diabetes mellitus complication detail: with foot ulcer Qualified Code(s): E10.621 - Type 1 diabetes mellitus with foot ulcer ; L97.509 - Non-pressure chronic ulcer of other part of unspecified foot with unspecified severity (4) HTN (hypertension) Assessment/Plan: losartan Code(s): I10 - ESSENTIAL (PRIMARY) HYPERTENSION DISCHARGE NEEDS PCP & ID 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 [Collagenase] 1 each MC DAILY 09/26/16 Silver Sulfadiazine [Silvadene] 1 applic TP DAILY 09/26/16
[2016-09-30 12:20] VITALS: BP 132/64; PULSE 80; TEMP 98.2
== END 2016-09-30 14:16 | disposition home or self-care (01) | DRG 603 ==
LOC: JER 12:13 → JERBED 18:01 → J8W 09-27 15:07
PROVIDERS: ADMIT Family Medicine; ATTEND Family Medicine
DX: L03.115 Cellulitis of right lower limb (principal); M86.671 Other chronic osteomyelitis, right ankle and foot; E11.69 Type 2 diabetes mellitus with other specified complication; E11.621 Type 2 diabetes mellitus with foot ulcer; L97.519 Non-pressure chronic ulcer of other part of right foot with unspecified severity; I73.9 Peripheral vascular disease, unspecified; Z79.4 Long term (current) use of insulin; I10 Essential (primary) hypertension; E11.59 Type 2 diabetes mellitus with other circulatory complications; E66.9 Obesity, unspecified; Z68.34 Body mass index [BMI] 34.0-34.9, adult
CPT/HCPCS: 11042; 36415; 71020-TC; 73630-TC-RT; 80053; 80061; 81003; 83036; 83721; 85025; 85610; 85651; 86140; 87040; 87070; 87077; 87186; 87205; 93005; 93010; 93970-TC; 99285-25; J1644

== ENCOUNTER 2017-04-03 12:39 | Inpatient (IN) | payer OTHER ==
--- NOTE | 2017-04-03 13:12 | PDOC ---
History of Present Illness - General Chief Complaint: Wound Infection Stated Complaint: Infected Rt Leg wound Time Seen by Provider: 04/03/17 12:54 History Source: Patient - History of Present Illness Initial Comments: 04/03/17 13:49 Patient is a 57 y.o. male with a PMH of IDDM who presents at the behest of the wound clinic for evaluation of RLE erythema. Patient notes he noticed the erythema 3 days previous and denies any associated fevers, chills and notes he is ambulating without difficulty. Patient notes a h/o cellulitis as well as current R foot wound infection for which he is on daily Bactrim. Dr. Camargo called prior to patient's arrival and requested that patient be evaluated by Dr. Almanza from Infectious Disease. 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 Buster Faustin Past History - Past Medical History Allergies/Adverse Reactions: Allergies Allergy/AdvReac Type Severity Reaction Status Date / Time No Known Drug Allergies Allergy Verified 04/03/17 12:44 Home Medications: Ambulatory Orders Insulin Pump Cartridge [T:Flex] 1 each SQ ASDIR 04/25/16 Sulfamethoxazole/Trimethoprim [Bactrim DS -] 1 tab PO BID 04/03/17 Anemia: No Asthma: No Cancer: No Cardiac Disorders: No CVA: No COPD: No CHF: No Dementia: No Diabetes: Yes GI Disorders: No Disorders: No HTN: Yes Hypercholesterolemia: No Liver Disease: No Seizures: No Thyroid Disease: No Other medical history: obesity, leg infection - Surgical History Abdominal Surgery: No Appendectomy: No Cardiac Surgery: No Cholecystectomy: No Lung Surgery: No Neurologic Surgery: No Orthopedic Surgery: Yes (amputation all toes left foot) - Suicide/Smoking/Psychosocial Hx Smoking History: Never smoked Have you smoked in the past 12 months: No Information on smoking cessation initiated: No Hx Alcohol Use: No Drug/Substance Use Hx: No Substance Use Type: None Hx Substance Use Treatment: No Review of Systems - Review of Systems Constitutional: No: Chills, Fever HEENTM: No: Blurred Vision, Double Vision Respiratory: No: Cough, Shortness of Breath Cardiac (ROS): No: Chest Pain, Irregular Heart Rate, Lightheadedness, Palpitations ABD/GI: No: Constipated, Diarrhea, Nausea, Vomiting : No: Burning, Dysuria *Physical Exam - Vital Signs Last Vital Signs Temp Pulse Resp BP Pulse Ox 98.2 F 81 18 151/66 100 04/03/17 12:41 04/03/17 12:41 04/03/17 12:41 04/03/17 12:41 04/03/17 12:41 - Physical Exam General Appearance: Yes: Appropriately Dressed, Obese Neck: positive: Trachea midline, Supple Respiratory/Chest: positive: Lungs Clear, Normal Breath Sounds Gastrointestinal/Abdominal: positive: Normal Bowel Sounds, Soft Musculoskeletal: negative: CVA Tenderness (R), CVA Tenderness (L) Integumentary: positive: Other (RLE erythema from ankle to mid tibia anteriorly , lower calf posteriorly) Neurologic: positive: Fully Oriented, Alert ED Treatment Course - LABORATORY CBC & Chemistry Diagram: 04/03/17 13:32 04/03/17 13:34 Medical Decision Making - Medical Decision Making 04/03/17 14:44 Patient is a 57 y.o. female with a PMH IDDM who presents with RLE cellulitis. On PE patient is afebrile with RLE anterior erythema to his mid tibia and posterior erythema to his lower calf as well as significant warmth of RLE. As patient has asymettrical erythema, spread is most likely lymphatic suggesting Strep as bacteria of origin. PLAN: 1. CBC, CMP 2. UA 3. Pip/Tazo as per Dr. Almanza Disposition: Admit for IV Abx therapy under Dr. Chatterjee *DC/Admit/Observation/Transfer Diagnosis at time of Disposition: Cellulitis of right lower extremity - Discharge Dispostion Condition at time of disposition: Good Admit: Yes
[2017-04-03] MEDS ORDERED: PIPERACILLIN/TAZOB 2.25 GM 2.25 GM in DEXTROSE 5%-WATER - 50 ML IVPB ONE (13:34)
[2017-04-03 13:41] LABS: BASOPHIL 0.7 % (0-2.0); MCH 28.4 pg (25.7-33.7); MCHC 32.5 g/dl (32.0-35.9); MEAN CELL VOLUME 87.3 fl (80-96); MEAN PLT VOLUME 8.1 fl (7.5-11.1); NEUTROPHILS 70.8 % (42.8-82.8); PLATELET COUNT 315 K/MM3 (134-434); RDW 15.1 % (11.9-15.9); WHITE BLOOD COUNT 8.4 K/mm3 (4.0-10.0)
[2017-04-03 14:06] LABS: ANION GAP 10 (8-16); BILIRUBIN,TOTAL 0.4 mg/dL (0.2-1.0); CALCIUM 8.6 mg/dL (8.5-10.1); CO2 24 mmol/L (21-32); GLUCOSE,RANDOM 136 mg/dL (74-106); SGPT/ALT 20 U/L (12-78)
[2017-04-03 14:07] LABS: ALK PHOS 101 U/L (45-117); TOT PROT 7.2 g/dl (6.4-8.2)
[2017-04-03 14:11] LABS: SGOT/AST 24 U/L (15-37)
[2017-04-03 14:45] LABS: URINE APPEARANCE CLEAR; URINE BILIRUBIN NEGATIVE (NEGATIVE); URINE BLOOD NEGATIVE (NEGATIVE); URINE COLOR STRAW; URINE GLUCOSE (UA) 1+ (NEGATIVE); URINE KETONE NEGATIVE (NEGATIVE); URINE NITRITE NEGATIVE (NEGATIVE); URINE PROTEIN NEGATIVE (NEGATIVE); URINE UROBILINOGEN NEGATIVE mg/dL (0.2-1.0)
--- NOTE | 2017-04-03 15:11 | CON.ID ---
Consult Consult Specialty:: infectious diseases Referred by:: Reason for Consultation:: cellulitits of the leg - History of Present Illness Chief Complaint: swelling nd redness of the leg History of Present Illness: 57 year old IDDM w, presented to [facility] with right lower extremity cellulitis, failed outpatient therapy. Patient has been on PO bactrim for chronic suppression therapy as prescribed by Infectious Disease. Does have history of chronic osteomyelitis, treated with course of IV abx for approximately 6 weeks in 05/10. Does report increased redness/swelling of 3 days duration. I sarah seen his previous records and patient has been given various courses of abx and long duration of abx inspite of that patient has got repeated cellulitis of the foot for which he has come to he hospital again his microbiology has shown multiple organisms including esbl and mrsa and pseudomonas since patient has got the cellulittis of the leg his wound on the heel has increased in size and drainage has increased currently patient is doing well - History Source History Provided By: Patient Limitations to Obtaining History: No Limitations - Past Medical History Cardio/Vascular: Yes: HTN, Hyperlipdemia Infectious Disease: Yes: Other (FOOT ULCER) Musculoskeletal: Yes: Other (FOOT ULCER AND REDNESS) Endocrine: Yes: Diabetes Mellitus - Alcohol/Substance Use Hx Alcohol Use: No - Smoking History Smoking history: Never smoked Have you smoked in the past 12 months: No Home Medications - Allergies Allergies/Adverse Reactions: Allergies Allergy/AdvReac Type Severity Reaction Status Date / Time No Known Drug Allergies Allergy Verified 04/03/17 12:44 - Home Medications Home Medications: Ambulatory Orders Insulin Pump Cartridge [T:Flex] 1 each SQ ASDIR 04/25/16 Sulfamethoxazole/Trimethoprim [Bactrim DS -] 1 tab PO BID 04/03/17 Review of Systems - Review of Systems Constitutional: reports: No Symptoms Eyes: reports: No Symptoms HENT: reports: No Symptoms Neck: reports: No Symptoms Cardiovascular: reports: No Symptoms Respiratory: reports: No Symptoms Gastrointestinal: reports: No Symptoms Genitourinary: reports: No Symptoms Musculoskeletal: reports: Muscle Pain, Other Integumentary: reports: Change in Color, Erythema, Wound Neurological: reports: No Symptoms Endocrine: reports: No Symptoms Hematology/Lymphatic: reports: No Symptoms Psychiatric: reports: No Symptoms Physical Exam Vital Signs: Vital Signs Temperature 98.2 F 04/03/17 12:41 Pulse Rate 81 04/03/17 12:41 Respiratory Rate 18 04/03/17 12:41 Blood Pressure 151/66 04/03/17 12:41 O2 Sat by Pulse Oximetry (%) 100 04/03/17 12:41 Constitutional: Yes: Well Nourished, No Distress, Calm Cardiovascular: Yes: Regular Rate and Rhythm Respiratory: Yes: Regular, CTA Bilaterally Gastrointestinal: Yes: Normal Bowel Sounds, Soft Musculoskeletal: Yes: Other Extremities: Yes: Erythema (rt), Other Integumentary: Yes: Erythema, Other Wound/Incision: Yes: Draining (from the heel) Neurological: Yes: Alert, Oriented Psychiatric: Yes: Alert, Oriented Labs: CBC, BMP 04/03/17 13:32 04/03/17 13:34 Imaging - Results Chest X-ray: Report Reviewed, Image Reviewed X-ray: Report Reviewed, Image Reviewed Assessment/Plan Problem List - Problems (1) Cellulitis of right leg Code(s): L03.115 - CELLULITIS OF RIGHT LOWER LIMB (2) HTN (hypertension) Code(s): I10 - ESSENTIAL (PRIMARY) HYPERTENSION (3) Diabetes mellitus Code(s): E11.9 - TYPE 2 DIABETES MELLITUS WITHOUT COMPLICATIONS Qualifiers: Diabetes mellitus type: type 1 Diabetes mellitus complication status: with skin complications Diabetes mellitus complication detail: with foot ulcer Qualified Code(s): E10.621 - Type 1 diabetes mellitus with foot ulcer ; E10.621 - Type 1 diabetes mellitus with foot ulcer; E10.621 - Type 1 diabetes mellitus with foot ulcer; E10.621 - Type 1 diabetes mellitus with foot ulcer; L97.509 - Non-pressure chronic ulcer of other part of unspecified foot with unspecified severity; L97.509 - Non-pressure chronic ulcer of other part of unspecified foot with unspecified severity; L97.509 - Non-pressure chronic ulcer of other part of unspecified foot with unspecified severity; L97.509 - Non -pressure chronic ulcer of other part of unspecified foot with unspecified severity r/o osteo i ave looked at the complete case plan mri of the foot if the mri is inconclusive might request biopsy i have strong suspicion that this might be osteo follow esr and crp i ahve started patient on zosyn,but i suspect he is going to need treatment for a longer duration adn probably wiht other abx i might clinda orally tomorrow
--- NOTE | 2017-04-03 15:49 | PDOC ---
Attending Attestation - Resident Resident Name: Kaylen Arboleda - ED Attending Attestation I have performed the following: I have examined & evaluated the patient, The case was reviewed & discussed with the resident, I agree w/resident's findings & plan, Exceptions are as noted - HPI HPI: 04/03/17 15:43 Patient is a 57 y.o. male with a PMH of IDDM who was referred to the emergency department from wound care center due to right lower extremity erythema. He has had long-standing history of right lower extremity heel ulcer for which he has been managed by wound care Pt states he has been on Bactrim for the past 5 months No improvement in his foot, now with spreading erythema No fevers or chills No pain Pt was seen in the Wound care center today We received a call from Dr. 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 Heart is regular rate and rhythm. Lungs are clear to auscultation bilaterally. No abdominal tenderness to palpation. Right lower extremity edematous, venous stasis changes, erythema through the lower extremity beneath the knee. The right foot was just bandaged by wound care, dressing does not removed. Right lower extremity not particularly warm. Nontender to palpation - Medical Decision Making 04/03/17 15:46 37-year-old male presenting to the emergency department with right lower extremity erythema, history of osteomyelitis, chronic nonhealing heel ulcer previously treated with Bactrim, now with spreading erythema Will Labs Xrays consult Id Will admit 04/03/17 15:49 Laboratory Tests 04/03/17 04/03/17 13:32 13:34 WBC 8.4 Hgb 11.1 L Hct 34.1 L Plt Count 315 Sodium 134 L Potassium 5.1 D Chloride 100 Carbon Dioxide 24 BUN 20 H D Creatinine 1.0 Random Glucose 136 H D
--- NOTE | 2017-04-03 16:19 | HP ---
Admitting History and Physical - Primary Care Physician PCP: Buster Faustin I - Admission Chief Complaint: right foot wound History of Present Illness: Patient is a 57 y.o. male with a PMH of IDDM who presents at the wound clinic for evaluation of RLE erythema. Patient notes he noticed the erythema 3 days previous and denies any associated fevers, chills and notes he is ambulating without difficulty. Patient notes a h/o cellulitis as well as current R foot wound infection for which he is on daily Bactrim. Dr. Camargo called prior to patient's arrival and requested that patient be evaluated by Dr. 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 Buster Faustin in ER patient got zosyn History Source: Patient, Medical Record - Past Medical History Cardiovascular: Yes: HTN, Hyperlipdemia Infectious Disease: Yes: Other (FOOT ULCER) Musculoskeletal: Yes: Other (FOOT ULCER AND REDNESS) Endocrine: Yes: Diabetes Mellitus - Smoking History Smoking history: Never smoked Have you smoked in the past 12 months: No - Alcohol/Substance Use Hx Alcohol Use: No Home Medications - Allergies Allergies/Adverse Reactions: Allergies Allergy/AdvReac Type Severity Reaction Status Date / Time No Known Drug Allergies Allergy Verified 04/03/17 12:44 - Home Medications Home Medications: Ambulatory Orders Insulin Pump Cartridge [T:Flex] 1 each SQ ASDIR 04/25/16 Sulfamethoxazole/Trimethoprim [Bactrim DS -] 1 tab PO BID 04/03/17 Review of Systems - Review of Systems Cardiovascular: reports: No Symptoms Respiratory: reports: No Symptoms Gastrointestinal: reports: No Symptoms Physical Examination Vital Signs: Vital Signs Temperature 98.2 F 04/03/17 12:41 Pulse Rate 81 04/03/17 12:41 Respiratory Rate 18 04/03/17 12:41 Blood Pressure 151/66 04/03/17 12:41 O2 Sat by Pulse Oximetry (%) 100 04/03/17 12:41 Constitutional: Yes: Calm Neck: Yes: Trachea Midline Cardiovascular: Yes: Regular Rate and Rhythm, S1, S2 Respiratory: Yes: CTA Bilaterally Gastrointestinal: Yes: Normal Bowel Sounds, Soft, Abdomen, Obese Extremities: Yes: Erythema (on RLE) Edema: Yes Wound/Incision: Yes: Dressing Removed (right heel wound bloody drainage noted) Imaging - Results X-ray: Pending Problem List - Problems (1) Cellulitis of right leg Assessment/Plan: iv abx per ID cbc esr dvtppx Code(s): L03.115 - CELLULITIS OF RIGHT LOWER LIMB (2) HTN (hypertension) Assessment/Plan: low soidum no hctz start norvasc Code(s): I10 - ESSENTIAL (PRIMARY) HYPERTENSION (3) Diabetes mellitus Assessment/Plan: insulin ga1c bgm sliding scale Code(s): E11.9 - TYPE 2 DIABETES MELLITUS WITHOUT COMPLICATIONS Qualifiers: Diabetes mellitus type: type 1 Diabetes mellitus complication status: with skin complications Diabetes mellitus complication detail: with foot ulcer Qualified Code(s): E10.621 - Type 1 diabetes mellitus with foot ulcer ; E10.621 - Type 1 diabetes mellitus with foot ulcer; E10.621 - Type 1 diabetes mellitus with foot ulcer; E10.621 - Type 1 diabetes mellitus with foot ulcer; L97.509 - Non-pressure chronic ulcer of other part of unspecified foot with unspecified severity; L97.509 - Non-pressure chronic ulcer of other part of unspecified foot with unspecified severity; L97.509 - Non-pressure chronic ulcer of other part of unspecified foot with unspecified severity; L97.509 - Non -pressure chronic ulcer of other part of unspecified foot with unspecified severity
[2017-04-03] MEDS ORDERED: ACETAMINOPHEN 325 MG TABLET (FP) PO PRN (16:22)
[2017-04-03] MEDS: PIPERACILLIN/TAZOB 3.375 GM 3.375 GM in DEXTROSE 5%-WATER - 50 ML IVPB SCH (17:56)
[2017-04-03] MEDS: INSULIN SLIDING SCALE (NOVOLOG) 1 VIAL SQ SCH ×2 (18:24→22:30)
[2017-04-03 18:56] VITALS: BMI 32.8
[2017-04-03 19:24] LABS: URINE LEUK ESTERASE Negative (NEGATIVE)
[2017-04-03] MEDS: HEPARIN NA (PORCINE) 5,000 UNITS/ML 1ML VIAL SQ SCH ×2 (22:31→22:34)
[2017-04-04] MEDS ORDERED: PIPERACILLIN/TAZOBACTAM 3.375 GM VIAL IVPB ONE ×3 (01:34→17:58)
[2017-04-04] MEDS ORDERED: DEXTROSE 5%-WATER - 50 ML IVPB ONE ×3 (01:34→17:58)
[2017-04-04] MEDS: PIPERACILLIN/TAZOB 3.375 GM 3.375 GM in DEXTROSE 5%-WATER - 50 ML IVPB SCH ×3 (02:14→18:20)
[2017-04-04] MEDS: INSULIN SLIDING SCALE (NOVOLOG) 1 VIAL SQ SCH ×4 (06:34→22:07)
[2017-04-04 08:06] LABS: BASOPHIL 0.6 % (0-2.0); EOSINOPHIL 3.9 % (0-4.5); MCH 28.6 pg (25.7-33.7); MCHC 32.2 g/dl (32.0-35.9); MEAN CELL VOLUME 88.7 fl (80-96); PLATELET COUNT 314 K/MM3 (134-434); RDW 14.9 % (11.9-15.9); WHITE BLOOD COUNT 7.5 K/mm3 (4.0-10.0)
[2017-04-04 08:34] LABS: ALBUMIN 2.9 g/dl (3.4-5.0); ANION GAP 9 (8-16); CALCIUM 8.1 mg/dL (8.5-10.1); CO2 28 mmol/L (21-32); GLUCOSE,RANDOM 214 mg/dL (74-106); MAGNESIUM 2.5 mg/dL (1.8-2.4)
[2017-04-04 08:38] LABS: CHOLESTEROL 188 mg/dL (50-200)
[2017-04-04 08:39] LABS: ALK PHOS 88 U/L (45-117); BILIRUBIN,TOTAL 0.4 mg/dL (0.2-1.0); CREATININE 1.2 mg/dL (0.7-1.3); PHOSPHOROUS 3.6 mg/dL (2.5-4.9); SGOT/AST 9 U/L (15-37); SGPT/ALT 17 U/L (12-78); TOT PROT 6.5 g/dl (6.4-8.2)
[2017-04-04] MEDS: amLODIPine BESYLATE 10 MG TABLET (FP) PO SCH (10:09)
[2017-04-04] MEDS: HEPARIN NA (PORCINE) 5,000 UNITS/ML 1ML VIAL SQ SCH ×3 (10:12→22:08)
--- NOTE | 2017-04-04 10:53 | EKG ---
Test Reason : Blood Pressure : / mmHG Vent. Rate : 085 BPM Atrial Rate : 085 BPM P-R Int : 164 ms QRS Dur : 088 ms QT Int : 364 ms P-R-T Axes : 027 036 -06 degrees QTc Int : 433 ms NORMAL SINUS RHYTHM NONSPECIFIC T WAVE ABNORMALITY ABNORMAL ECG WHEN COMPARED WITH ECG OF 26-SEP-2016 17:07, NO SIGNIFICANT CHANGE WAS FOUND Confirmed by DARY ZELAYA MD ([id number]) on 04/04/2017 10:53:48 AM Referred By: Confirmed By:DARY ZELAYA MD
[2017-04-04] MEDS ORDERED: INSULIN (NOVOLOG) ASPART 100 UNITS/ML 10ML VIAL ONE ×2 (11:39→21:15)
--- NOTE | 2017-04-04 11:50 | CONSULT ---
Consult - text type - Consultation Consultation Note: Podiatry Consultation: 57 year old IDDM well known to me from wound care center, presented to [facility] with right lower extremity cellulitis, failed outpatient therapy. Patient has been on PO bactrim for chronic suppression therapy as prescribed by Infectious Disease. Does have history of chronic osteomyelitis, treated with course of IV abx for approximately 6 weeks in 05/10. Does report increased redness/swelling of 3 days duration. Denies F/V/N/C/SOB/CP. Currently afebrile. PMHx: IDDM, HTN, HLP Meds: noted in chart PSHx: TMA L foot ALL: NKMA JESSICA: R foot: pedal pulses non-palpable, TG warm-warmer RLE, CFT brisk to remaining toes. There is a posterior heel linear diabetic ulcer with granular base, probes about 0.5 cm, no purulence, no fluctuance, no soft tissue crepitus, no signs of acute infection. Minimal tenderness to palpation. WBC: 7.5 ESR: 75 R foot XR: no cortical destruction to suggest acute osteomyelitis Imp: 57 year old IDDM M with R foot diabetic ulcer and cellulitis 1. IV abx per Infectious Disease 2. Rx local wound care with bactroban daily to R heel 3. Discussed case with Infectious Disease, Rx for MRI to evaluate osteomyelitis 4. Will likely need IV Tx if MRI is positive 5. Will follow. Kathya Buenrostro DPM
--- NOTE | 2017-04-04 14:34 | PN ---
Progress Note, Physician History of Present Illness: patient doing well no issues dressing dry and intact evaluated by podiatry - Current Medication List Current Medications: Active Medications Acetaminophen (Tylenol -) 650 mg PO Q6H PRN PRN Reason: FEVER OR PAIN Amlodipine Besylate (Norvasc -) 10 mg PO DAILY [facility] Last Admin: 04/04/17 10:09 Dose: 10 mg Clindamycin HCl (Cleocin -) 300 mg PO Q6HPO [facility] Heparin Sodium (Porcine) (Heparin -) 5,000 unit SQ BID [facility] Last Admin: 04/04/17 10:12 Dose: Not Given Piperacillin Sod/Tazobactam (Sod 3.375 gm/ Dextrose) 50 mls @ 100 mls/hr IVPB Q8H-IV CHERYL PRN Reason: Protocol Last Admin: 04/04/17 10:11 Dose: 100 mls/hr Insulin Aspart (Novolog Vial Sliding Scale -) 1 vial SQ ACHS CHERYL PRN Reason: Protocol Last Admin: 04/04/17 06:34 Dose: 4 unit Mupirocin (Bactroban 2% Ointment -) 1 applic TP BID [facility] - Objective Vital Signs: Vital Signs Temperature 98.6 F 04/04/17 06:00 Pulse Rate 81 04/04/17 06:00 Respiratory Rate 18 04/04/17 10:00 Blood Pressure 144/71 04/04/17 06:00 O2 Sat by Pulse Oximetry (%) 100 04/04/17 10:00 Constitutional: Yes: No Distress, Calm Cardiovascular: Yes: Regular Rate and Rhythm Respiratory: Yes: Regular, CTA Bilaterally Gastrointestinal: Yes: Normal Bowel Sounds, Soft Musculoskeletal: Yes: Other Extremities: Yes: Other Wound/Incision: Yes: Dressing Dry and Intact Neurological: Yes: Alert, Oriented Psychiatric: Yes: Alert, Oriented Labs: CBC, BMP 04/04/17 06:58 04/04/17 06:58 Assessment/Plan Problem List - Problems (1) Cellulitis of right leg Code(s): L03.115 - CELLULITIS OF RIGHT LOWER LIMB (2) HTN (hypertension) Code(s): I10 - ESSENTIAL (PRIMARY) HYPERTENSION (3) Diabetes mellitus Code(s): E11.9 - TYPE 2 DIABETES MELLITUS WITHOUT COMPLICATIONS Qualifiers: Diabetes mellitus type: type 1 Diabetes mellitus complication status: with skin complications Diabetes mellitus complication detail: with foot ulcer Qualified Code(s): E10.621 - Type 1 diabetes mellitus with foot ulcer ; E10.621 - Type 1 diabetes mellitus with foot ulcer; E10.621 - Type 1 diabetes mellitus with foot ulcer; E10.621 - Type 1 diabetes mellitus with foot ulcer; L97.509 - Non-pressure chronic ulcer of other part of unspecified foot with unspecified severity; L97.509 - Non-pressure chronic ulcer of other part of unspecified foot with unspecified severity; L97.509 - Non-pressure chronic ulcer of other part of unspecified foot with unspecified severity; L97.509 - Non -pressure chronic ulcer of other part of unspecified foot with unspecified severity r/o osteo rt heel ulcer wound infection plan continue abx added clinda will await for mri rest as per podiatry
[2017-04-04] MEDS: MUPIROCIN 2% TOPICAL OINTMENT 22 GM TUBE TP SCH ×2 (16:22→22:07)
[2017-04-04] MEDS: CLINDAMYCIN HCL 150 MG CAPSULE (FP) PO SCH (17:54)
--- NOTE | 2017-04-04 19:57 | PN ---
Progress Note, Physician Chief Complaint: Right lower extremity cellulitis History of Present Illness: NAD, in bed seen by Podiatry and ID - Current Medication List Current Medications: Active Medications Acetaminophen (Tylenol -) 650 mg PO Q6H PRN PRN Reason: FEVER OR PAIN Amlodipine Besylate (Norvasc -) 10 mg PO DAILY [facility] Last Admin: 04/04/17 10:09 Dose: 10 mg Clindamycin HCl (Cleocin -) 300 mg PO Q6HPO [facility] Last Admin: 04/04/17 17:54 Dose: 300 mg Heparin Sodium (Porcine) (Heparin -) 5,000 unit SQ BID [facility] Last Admin: 04/04/17 10:12 Dose: Not Given Piperacillin Sod/Tazobactam (Sod 3.375 gm/ Dextrose) 50 mls @ 100 mls/hr IVPB Q8H-IV CHERYL PRN Reason: Protocol Last Admin: 04/04/17 18:20 Dose: 100 mls/hr Insulin Aspart (Novolog Vial Sliding Scale -) 1 vial SQ ACHS CHERYL PRN Reason: Protocol Last Admin: 04/04/17 16:23 Dose: Not Given Mupirocin (Bactroban 2% Ointment -) 1 applic TP BID [facility] Last Admin: 04/04/17 16:22 Dose: 1 applic - Objective Vital Signs: Vital Signs Temperature 98.1 F 04/04/17 18:00 Pulse Rate 83 04/04/17 18:00 Respiratory Rate 18 04/04/17 18:00 Blood Pressure 177/75 04/04/17 18:00 O2 Sat by Pulse Oximetry (%) 100 04/04/17 10:00 Constitutional: Yes: Well Nourished, No Distress, Calm Cardiovascular: Yes: Regular Rate and Rhythm Respiratory: Yes: Regular Musculoskeletal: Yes: Other (right foot pain) Wound/Incision: Yes: Dressing Dry and Intact Neurological: Yes: Alert, Oriented Psychiatric: Yes: Alert, Oriented Labs: CBC, BMP 04/04/17 06:58 04/04/17 06:58 Problem List - Problems (1) Cellulitis of right leg Assessment/Plan: -seen by ID and Podiatry -MRI pending -IV abx Code(s): L03.115 - CELLULITIS OF RIGHT LOWER LIMB (2) Diabetic foot ulcer Assessment/Plan: -wound care -seen by ID -IV abx Code(s): E11.621 - TYPE 2 DIABETES MELLITUS WITH FOOT ULCER L97.509 - NON-PRESSURE CHRONIC ULCER OTH PRT UNSP FOOT W UNSP SEVERITY Qualifiers: Diabetic foot ulcer location: heel Diabetes mellitus type: type 1 Laterality: right Non-pressure ulcer stage: with necrosis of muscle Qualified Code(s): E10.621 - Type 1 diabetes mellitus with foot ulcer; E10.621 - Type 1 diabetes mellitus with foot ulcer; E10.621 - Type 1 diabetes mellitus with foot ulcer; E10.621 - Type 1 diabetes mellitus with foot ulcer; L97.411 - Non-pressure chronic ulcer of right heel and midfoot limited to breakdown of skin; L97.411 - Non-pressure chronic ulcer of right heel and midfoot limited to breakdown of skin; L97.411 - Non-pressure chronic ulcer of right heel and midfoot limited to breakdown of skin; L97.411 - Non-pressure chronic ulcer of right heel and midfoot limited to breakdown of skin (3) HTN (hypertension) Assessment/Plan: -low sodium/diabetic diet -borderline on norvasc and cozaar -Cardiology consult -monitor renal function and Potassium Code(s): I10 - ESSENTIAL (PRIMARY) HYPERTENSION (4) Diabetes mellitus Assessment/Plan: -last HgA1C at 9.1 -seen by endocrinology -has insulin pump that is managed by endocrinology -low sodium/diabetic diet Code(s): E11.9 - TYPE 2 DIABETES MELLITUS WITHOUT COMPLICATIONS Qualifiers: Diabetes mellitus type: type 1 Diabetes mellitus complication status: with skin complications Diabetes mellitus complication detail: with foot ulcer Qualified Code(s): E10.621 - Type 1 diabetes mellitus with foot ulcer ; E10.621 - Type 1 diabetes mellitus with foot ulcer; E10.621 - Type 1 diabetes mellitus with foot ulcer; E10.621 - Type 1 diabetes mellitus with foot ulcer; L97.509 - Non-pressure chronic ulcer of other part of unspecified foot with unspecified severity; L97.509 - Non-pressure chronic ulcer of other part of unspecified foot with unspecified severity; L97.509 - Non-pressure chronic ulcer of other part of unspecified foot with unspecified severity; L97.509 - Non -pressure chronic ulcer of other part of unspecified foot with unspecified severity Assessment/Plan see problem list
[2017-04-05] MEDS: CLINDAMYCIN HCL 150 MG CAPSULE (FP) PO SCH ×3 (00:38→11:44)
[2017-04-05] MEDS: PIPERACILLIN/TAZOB 3.375 GM 3.375 GM in DEXTROSE 5%-WATER - 50 ML IVPB SCH ×2 (01:18→09:12)
[2017-04-05] MEDS: INSULIN SLIDING SCALE (NOVOLOG) 1 VIAL SQ SCH ×4 (06:18→21:47)
[2017-04-05 07:32] LABS: EOSINOPHIL 3.2 % (0-4.5); MCH 28.8 pg (25.7-33.7); MCHC 32.9 g/dl (32.0-35.9); MEAN CELL VOLUME 87.5 fl (80-96); MEAN PLT VOLUME 7.8 fl (7.5-11.1); PLATELET COUNT 334 K/MM3 (134-434); RDW 14.8 % (11.9-15.9); WHITE BLOOD COUNT 7.1 K/mm3 (4.0-10.0)
[2017-04-05 07:55] LABS: ALBUMIN 2.9 g/dl (3.4-5.0); ANION GAP 8 (8-16); CALCIUM 8.5 mg/dL (8.5-10.1); CO2 28 mmol/L (21-32); GLUCOSE,RANDOM 216 mg/dL (74-106)
[2017-04-05 08:01] LABS: ALK PHOS 89 U/L (45-117); BILIRUBIN,TOTAL 0.3 mg/dL (0.2-1.0); C-REACTIVE PROTEIN 5.1 MG/DL (0.00-0.3); SGOT/AST 8 U/L (15-37); SGPT/ALT 15 U/L (12-78); TOT PROT 6.6 g/dl (6.4-8.2)
[2017-04-05] MEDS ORDERED: DEXTROSE 5%-WATER - 50 ML IVPB ONE (09:06)
[2017-04-05] MEDS ORDERED: PIPERACILLIN/TAZOBACTAM 3.375 GM VIAL IVPB ONE (09:06)
[2017-04-05] MEDS: amLODIPine BESYLATE 10 MG TABLET (FP) PO SCH (09:13)
[2017-04-05] MEDS: HEPARIN NA (PORCINE) 5,000 UNITS/ML 1ML VIAL SQ SCH ×2 (09:13→21:45)
--- NOTE | 2017-04-05 10:35 | PN ---
Progress Note, Physician Chief Complaint: awake alert oriented no distress tolerating iv abx will get endocrine on board - Current Medication List Current Medications: Active Medications Acetaminophen (Tylenol -) 650 mg PO Q6H PRN PRN Reason: FEVER OR PAIN Amlodipine Besylate (Norvasc -) 10 mg PO DAILY [facility] Last Admin: 04/05/17 09:13 Dose: 10 mg Clindamycin HCl (Cleocin -) 300 mg PO Q6HPO [facility] Last Admin: 04/05/17 06:19 Dose: 300 mg Heparin Sodium (Porcine) (Heparin -) 5,000 unit SQ BID [facility] Last Admin: 04/05/17 09:13 Dose: Not Given Piperacillin Sod/Tazobactam (Sod 3.375 gm/ Dextrose) 50 mls @ 100 mls/hr IVPB Q8H-IV CHERYL PRN Reason: Protocol Last Admin: 04/05/17 09:12 Dose: 100 mls/hr Insulin Aspart (Novolog Vial Sliding Scale -) 1 vial SQ ACHS [facility] PRN Reason: Protocol Last Admin: 04/05/17 06:18 Dose: Not Given Mupirocin (Bactroban 2% Ointment -) 1 applic TP BID [facility] Last Admin: 04/04/17 22:07 Dose: 1 applic - Objective Vital Signs: Vital Signs Temperature 97.9 F 04/05/17 08:55 Pulse Rate 86 04/05/17 08:55 Respiratory Rate 18 04/05/17 08:55 Blood Pressure 158/89 04/05/17 08:55 O2 Sat by Pulse Oximetry (%) 100 04/04/17 22:00 Constitutional: Yes: Calm Neck: Yes: Trachea Midline Cardiovascular: Yes: Regular Rate and Rhythm, S1, S2 Respiratory: Yes: CTA Bilaterally Gastrointestinal: Yes: Soft Extremities: Yes: Other (erythema decreasing) Wound/Incision: Yes: Dressing Dry and Intact Neurological: Yes: Alert, Oriented Labs: CBC, BMP 04/05/17 06:25 04/05/17 06:25 Problem List - Problems (1) Cellulitis of right leg Assessment/Plan: iv abx per ID podiatry on board awaiting mri Code(s): L03.115 - CELLULITIS OF RIGHT LOWER LIMB (2) HTN (hypertension) Assessment/Plan: low sodium no hctz start norvasc will add cozaar monitor renal function and Potassium Code(s): I10 - ESSENTIAL (PRIMARY) HYPERTENSION (3) Diabetes mellitus Assessment/Plan: on insulin pump will get endo to see patient Code(s): E11.9 - TYPE 2 DIABETES MELLITUS WITHOUT COMPLICATIONS Qualifiers: Diabetes mellitus type: type 1 Diabetes mellitus complication status: with skin complications Diabetes mellitus complication detail: with foot ulcer Qualified Code(s): E10.621 - Type 1 diabetes mellitus with foot ulcer ; E10.621 - Type 1 diabetes mellitus with foot ulcer; E10.621 - Type 1 diabetes mellitus with foot ulcer; E10.621 - Type 1 diabetes mellitus with foot ulcer; L97.509 - Non-pressure chronic ulcer of other part of unspecified foot with unspecified severity; L97.509 - Non-pressure chronic ulcer of other part of unspecified foot with unspecified severity; L97.509 - Non-pressure chronic ulcer of other part of unspecified foot with unspecified severity; L97.509 - Non -pressure chronic ulcer of other part of unspecified foot with unspecified severity
[2017-04-05] MEDS: LOSARTAN POTASSIUM 50 MG TABLET (FP) PO SCH (11:44)
--- NOTE | 2017-04-05 12:02 | PN ---
Progress Note (short form) - Note Progress Note: [facility] F/U: Seen/evaluated at bedside with , NAD. Pain controlled, denies F/V/N/C/SOB/ CP. Afebrile, VSS. JESSICA: R foot: posterior heel diabetic ulcer with granular base, probes about 0.5 cm, no probing to one, no purulence, no fluctuance, no soft tissue crepitus. Persistent erythema to lower leg. Minimal tenderness to palpation. WBC:7.1 MRI: pending Imp: 57 year old IDDM M with R heel diabetic ulcer and cellulitis, evaluate for osteomyelitis 1. Discussed case with Infectious Disease, will stop IV abx in anticipation for bone biopsy on Sunday. 2. MRI R foot pending. 3. Bactroban + DSD QOD 4. Will follow Kathya Buenrostro DPM
[2017-04-05] MEDS: MUPIROCIN 2% TOPICAL OINTMENT 22 GM TUBE TP SCH ×2 (12:38→21:46)
--- NOTE | 2017-04-05 13:24 | PN ---
Progress Note, Physician History of Present Illness: patient doing well no issues dressing dry and intact cellulitis much better - Current Medication List Current Medications: Active Medications Acetaminophen (Tylenol -) 650 mg PO Q6H PRN PRN Reason: FEVER OR PAIN Amlodipine Besylate (Norvasc -) 10 mg PO DAILY [facility] Last Admin: 04/05/17 09:13 Dose: 10 mg Clindamycin HCl (Cleocin -) 300 mg PO Q6HPO [facility] Last Admin: 04/05/17 11:44 Dose: 300 mg Heparin Sodium (Porcine) (Heparin -) 5,000 unit SQ BID [facility] Last Admin: 04/05/17 09:13 Dose: Not Given Piperacillin Sod/Tazobactam (Sod 3.375 gm/ Dextrose) 50 mls @ 100 mls/hr IVPB Q8H-IV [facility] PRN Reason: Protocol Last Admin: 04/05/17 09:12 Dose: 100 mls/hr Insulin Aspart (Novolog Vial Sliding Scale -) 1 vial SQ ACHS [facility] PRN Reason: Protocol Last Admin: 04/05/17 11:44 Dose: Not Given Losartan Potassium (Cozaar -) 50 mg PO DAILY [facility] Last Admin: 04/05/17 11:44 Dose: 50 mg Mupirocin (Bactroban 2% Ointment -) 1 applic TP BID [facility] Last Admin: 04/05/17 12:38 Dose: Not Given - Objective Vital Signs: Vital Signs Temperature 97.9 F 04/05/17 08:55 Pulse Rate 86 04/05/17 08:55 Respiratory Rate 18 04/05/17 08:55 Blood Pressure 158/89 04/05/17 08:55 O2 Sat by Pulse Oximetry (%) 100 04/04/17 22:00 Constitutional: Yes: No Distress, Calm Cardiovascular: Yes: Regular Rate and Rhythm Respiratory: Yes: Regular, CTA Bilaterally Gastrointestinal: Yes: Normal Bowel Sounds, Soft Musculoskeletal: Yes: Other Extremities: Yes: Erythema (improving), Other Neurological: Yes: Alert, Oriented Psychiatric: Yes: Alert, Oriented Labs: CBC, BMP 04/05/17 06:25 04/05/17 06:25 Assessment/Plan Problem List - Problems (1) Cellulitis of right leg Code(s): L03.115 - CELLULITIS OF RIGHT LOWER LIMB (2) HTN (hypertension) Code(s): I10 - ESSENTIAL (PRIMARY) HYPERTENSION (3) Diabetes mellitus Code(s): E11.9 - TYPE 2 DIABETES MELLITUS WITHOUT COMPLICATIONS Qualifiers: Diabetes mellitus type: type 1 Diabetes mellitus complication status: with skin complications Diabetes mellitus complication detail: with foot ulcer Qualified Code(s): E10.621 - Type 1 diabetes mellitus with foot ulcer ; E10.621 - Type 1 diabetes mellitus with foot ulcer; E10.621 - Type 1 diabetes mellitus with foot ulcer; E10.621 - Type 1 diabetes mellitus with foot ulcer; L97.509 - Non-pressure chronic ulcer of other part of unspecified foot with unspecified severity; L97.509 - Non-pressure chronic ulcer of other part of unspecified foot with unspecified severity; L97.509 - Non-pressure chronic ulcer of other part of unspecified foot with unspecified severity; L97.509 - Non -pressure chronic ulcer of other part of unspecified foot with unspecified severity r/o osteo rt heel ulcer wound infection plan will stop zosyn after this evening dose will stop clinda bone biopsy wound cx mri after all that we will make a plan for abx treatment
[2017-04-05] MEDS ORDERED: PIPERACILLIN/TAZOB 3.375 GM 3.375 GM in DEXTROSE 5%-WATER - 50 ML IVPB ONE ×2 (14:00→18:00)
--- NOTE | 2017-04-05 22:47 | CONSULT ---
Consult Consult Specialty:: endocrine Referred by:: dr.saba tomlin Reason for Consultation:: iddm - History of Present Illness Chief Complaint: high sugars diabetic leg infection History of Present Illness: 57 year old IDDM w, presented to [facility] with right lower extremity cellulitis, failed outpatient therapy. Patient has been on PO bactrim for chronic suppression therapy as prescribed by Infectious Disease. Does have history of chronic osteomyelitis, treated with course of IV abx for approximately 6 weeks in 05/10. Does report increased redness/swelling of 3 days duration. - History Source History Provided By: Patient Limitations to Obtaining History: Clinical Condition - Past Medical History Cardio/Vascular: Yes: HTN, Hyperlipdemia Infectious Disease: Yes: Other (FOOT ULCER) Musculoskeletal: Yes: Other (FOOT ULCER AND REDNESS) Endocrine: Yes: Diabetes Mellitus - Alcohol/Substance Use Hx Alcohol Use: No - Smoking History Smoking history: Never smoked Have you smoked in the past 12 months: No Home Medications - Allergies Allergies/Adverse Reactions: Allergies Allergy/AdvReac Type Severity Reaction Status Date / Time No Known Drug Allergies Allergy Verified 04/03/17 12:44 - Home Medications Home Medications: Ambulatory Orders Insulin Pump Cartridge [T:Flex] 1 each SQ ASDIR 04/25/16 Sulfamethoxazole/Trimethoprim [Bactrim DS -] 1 tab PO BID 04/03/17 Review of Systems - Review of Systems Constitutional: reports: Lethargy Eyes: reports: Blurred Vision HENT: reports: Difficult Swallowing Neck: reports: No Symptoms Cardiovascular: reports: Shortness of Breath Respiratory: reports: Exercise Intolerance, SOB on Exertion Gastrointestinal: reports: Bloating Genitourinary: reports: No Symptoms Musculoskeletal: reports: Muscle Pain, Muscle Cramps, Muscle Weakness Neurological: reports: Numbness Physical Exam Vital Signs: Vital Signs Temperature 98.5 F 04/05/17 19:00 Pulse Rate 84 04/05/17 19:00 Respiratory Rate 18 04/05/17 19:00 Blood Pressure 131/62 04/05/17 19:00 O2 Sat by Pulse Oximetry (%) 99 04/05/17 10:00 Constitutional: Yes: Anxious Eyes: Yes: EOM Intact HENT: Yes: Normocephalic Neck: Yes: WNL Cardiovascular: Yes: Regular Rate and Rhythm Respiratory: Yes: CTA Bilaterally Gastrointestinal: Yes: Normal Bowel Sounds ...Rectal Exam: Yes: Deferred Renal/: Yes: WNL Breast(s): Yes: WNL Extremities: Yes: Amputation Edema: Yes Neurological: Yes: Alert, Oriented Labs: CBC, BMP 04/05/17 06:25 04/05/17 06:25 Problem List - Problems (1) Cellulitis of right leg Code(s): L03.115 - CELLULITIS OF RIGHT LOWER LIMB (2) Cellulitis Code(s): L03.90 - CELLULITIS, UNSPECIFIED Qualifiers: Site of cellulitis: extremity Site of cellulitis of extremity: lower extremity Laterality: right Qualified Code(s): L03.115 - Cellulitis of right lower limb; L03.115 - Cellulitis of right lower limb (3) Osteomyelitis of foot Code(s): M86.9 - OSTEOMYELITIS, UNSPECIFIED (4) Diabetes mellitus Code(s): E11.9 - TYPE 2 DIABETES MELLITUS WITHOUT COMPLICATIONS Qualifiers: Diabetes mellitus type: type 1 Diabetes mellitus complication status: with skin complications Diabetes mellitus complication detail: with foot ulcer Qualified Code(s): E10.621 - Type 1 diabetes mellitus with foot ulcer ; E10.621 - Type 1 diabetes mellitus with foot ulcer; E10.621 - Type 1 diabetes mellitus with foot ulcer; E10.621 - Type 1 diabetes mellitus with foot ulcer; L97.509 - Non-pressure chronic ulcer of other part of unspecified foot with unspecified severity; L97.509 - Non-pressure chronic ulcer of other part of unspecified foot with unspecified severity; L97.509 - Non-pressure chronic ulcer of other part of unspecified foot with unspecified severity; L97.509 - Non -pressure chronic ulcer of other part of unspecified foot with unspecified severity Assessment/Plan Current Active Problems Cellulitis of right leg (Acute) diabetes mellitus hyperglycemia insulin pump use htn morbid obesity diabetic foot infection Abnormal Lab Results 04/05/17 04/05/17 06:25 06:25 RBC 3.73 L Hgb 10.7 L Hct 32.6 L Sodium 134 L BUN 22 H Random Glucose 216 H AST 8 L C-Reactive Protein 5.1 H D Albumin 2.9 L Laboratory Results - last 24 hr 04/05/17 04/05/17 04/05/17 06:10 06:25 06:25 WBC 7.1 RBC 3.73 L Hgb 10.7 L Hct 32.6 L MCV 87.5 MCH 28.8 MCHC 32.9 RDW 14.8 Plt Count 334 MPV 7.8 Neutrophils % 69.0 Lymphocytes % 22.3 Monocytes % 4.5 Eosinophils % 3.2 Basophils % 1.0 Sodium 134 L Potassium 4.3 Chloride 98 Carbon Dioxide 28 Anion Gap 8 BUN 22 H Creatinine 1.0 Creat Clearance w eGFR > 60 POC Glucometer 246 Random Glucose 216 H Calcium 8.5 Total Bilirubin 0.3 D AST 8 L ALT 15 Alkaline Phosphatase 89 C-Reactive Protein 5.1 H D Total Protein 6.6 Albumin 2.9 L 04/05/17 04/05/17 04/05/17 11:42 16:09 21:46 WBC RBC Hgb Hct MCV MCH MCHC RDW Plt Count MPV Neutrophils % Lymphocytes % Monocytes % Eosinophils % Basophils % Sodium Potassium Chloride Carbon Dioxide Anion Gap BUN Creatinine Creat Clearance w eGFR POC Glucometer 134 229 224 Random Glucose Calcium Total Bilirubin AST ALT Alkaline Phosphatase C-Reactive Protein Total Protein Albumin plan: bgm qid novolog bolus with pump basal rate 1.4 u /hr basal bolus using pump ck [id number]
[2017-04-06] MEDS: INSULIN SLIDING SCALE (NOVOLOG) 1 VIAL SQ SCH (06:36)
[2017-04-06 07:18] LABS: BASOPHIL 0.8 % (0-2.0); MCH 28.9 pg (25.7-33.7); MCHC 32.9 g/dl (32.0-35.9); MEAN CELL VOLUME 87.6 fl (80-96); MEAN PLT VOLUME 7.7 fl (7.5-11.1); NEUTROPHILS 65.7 % (42.8-82.8); PLATELET COUNT 336 K/MM3 (134-434); RDW 14.8 % (11.9-15.9); WHITE BLOOD COUNT 6.9 K/mm3 (4.0-10.0)
[2017-04-06 07:34] LABS: ANION GAP 6 (8-16); CALCIUM 8.6 mg/dL (8.5-10.1); CO2 30 mmol/L (21-32); GLUCOSE,RANDOM 213 mg/dL (74-106)
[2017-04-06 07:36] LABS: CREATININE 1.1 mg/dL (0.7-1.3)
[2017-04-06] MEDS: LIPASE/PROTEASE/AMYLASE 36,000 UNIT CAPSULE PO SCH ×3 (09:35→17:19)
[2017-04-06] MEDS: amLODIPine BESYLATE 10 MG TABLET (FP) PO SCH (09:36)
[2017-04-06] MEDS: PANTOPRAZOLE 40 MG TABLET (FP) PO SCH (09:36)
[2017-04-06] MEDS: LOSARTAN POTASSIUM 50 MG TABLET (FP) PO SCH (09:36)
[2017-04-06] MEDS: HEPARIN NA (PORCINE) 5,000 UNITS/ML 1ML VIAL SQ SCH ×2 (09:38→21:55)
[2017-04-06 12:11] LABS: ERYTHROCYTE SEDIMENTATION RATE 65 mm/hr (0-20)
--- NOTE | 2017-04-06 13:02 | PN ---
Progress Note, Physician History of Present Illness: patient doing well no issues dressing dry and intact - Current Medication List Current Medications: Active Medications Acetaminophen (Tylenol -) 650 mg PO Q6H PRN PRN Reason: FEVER OR PAIN Amlodipine Besylate (Norvasc -) 10 mg PO DAILY [facility] Last Admin: 04/06/17 09:36 Dose: 10 mg Heparin Sodium (Porcine) (Heparin -) 5,000 unit SQ BID [facility] Last Admin: 04/06/17 09:38 Dose: Not Given Losartan Potassium (Cozaar -) 50 mg PO DAILY [facility] Last Admin: 04/06/17 09:36 Dose: 50 mg Mupirocin (Bactroban 2% Ointment -) 1 applic TP BID [facility] Last Admin: 04/05/17 21:46 Dose: Not Given Pancrelipase (Creon Dr 36,000 Units Capsule) 1 cap PO TIDCM [facility] Last Admin: 04/06/17 11:15 Dose: 1 cap Pantoprazole Sodium (Protonix -) 40 mg PO DAILY [facility] Last Admin: 04/06/17 09:36 Dose: 40 mg - Objective Vital Signs: Vital Signs Temperature 98.9 F 04/06/17 09:43 Pulse Rate 82 04/06/17 09:43 Respiratory Rate 20 04/06/17 09:43 Blood Pressure 127/73 04/06/17 09:43 O2 Sat by Pulse Oximetry (%) 99 04/06/17 10:00 Constitutional: Yes: No Distress, Calm Cardiovascular: Yes: Regular Rate and Rhythm Respiratory: Yes: Regular, CTA Bilaterally Gastrointestinal: Yes: Normal Bowel Sounds, Soft Musculoskeletal: Yes: Other Extremities: Yes: Other Wound/Incision: Yes: Dressing Dry and Intact Neurological: Yes: Alert, Oriented Psychiatric: Yes: Alert, Oriented Labs: CBC, BMP 04/06/17 06:15 04/06/17 06:15 Assessment/Plan Problem List - Problems (1) Cellulitis of right leg Code(s): L03.115 - CELLULITIS OF RIGHT LOWER LIMB (2) HTN (hypertension) Code(s): I10 - ESSENTIAL (PRIMARY) HYPERTENSION (3) Diabetes mellitus Code(s): E11.9 - TYPE 2 DIABETES MELLITUS WITHOUT COMPLICATIONS Qualifiers: Diabetes mellitus type: type 1 Diabetes mellitus complication status: with skin complications Diabetes mellitus complication detail: with foot ulcer Qualified Code(s): E10.621 - Type 1 diabetes mellitus with foot ulcer ; E10.621 - Type 1 diabetes mellitus with foot ulcer; E10.621 - Type 1 diabetes mellitus with foot ulcer; E10.621 - Type 1 diabetes mellitus with foot ulcer; L97.509 - Non-pressure chronic ulcer of other part of unspecified foot with unspecified severity; L97.509 - Non-pressure chronic ulcer of other part of unspecified foot with unspecified severity; L97.509 - Non-pressure chronic ulcer of other part of unspecified foot with unspecified severity; L97.509 - Non -pressure chronic ulcer of other part of unspecified foot with unspecified severity r/o osteo rt heel ulcer wound infection plan await for mri await for biopsy result
[2017-04-06] MEDS: MUPIROCIN 2% TOPICAL OINTMENT 22 GM TUBE TP SCH ×2 (13:24→21:55)
--- NOTE | 2017-04-06 15:17 | PN ---
Progress Note, Physician Chief Complaint: Right lower extremity cellulitis History of Present Illness: NAD, in the chair contact isolation seen by Podiatry and ID - Current Medication List Current Medications: Active Medications Acetaminophen (Tylenol -) 650 mg PO Q6H PRN PRN Reason: FEVER OR PAIN Amlodipine Besylate (Norvasc -) 10 mg PO DAILY [facility] Last Admin: 04/06/17 09:36 Dose: 10 mg Heparin Sodium (Porcine) (Heparin -) 5,000 unit SQ BID [facility] Last Admin: 04/06/17 09:38 Dose: Not Given Losartan Potassium (Cozaar -) 50 mg PO DAILY [facility] Last Admin: 04/06/17 09:36 Dose: 50 mg Mupirocin (Bactroban 2% Ointment -) 1 applic TP BID [facility] Last Admin: 04/06/17 13:24 Dose: 1 applic Pancrelipase (Creon Dr 36,000 Units Capsule) 1 cap PO TIDCM [facility] Last Admin: 04/06/17 11:15 Dose: 1 cap Pantoprazole Sodium (Protonix -) 40 mg PO DAILY [facility] Last Admin: 04/06/17 09:36 Dose: 40 mg - Objective Vital Signs: Vital Signs Temperature 98.9 F 04/06/17 09:43 Pulse Rate 82 04/06/17 09:43 Respiratory Rate 20 04/06/17 09:43 Blood Pressure 127/73 04/06/17 09:43 O2 Sat by Pulse Oximetry (%) 99 04/06/17 10:00 Constitutional: Yes: Well Nourished, No Distress, Calm Cardiovascular: Yes: Regular Rate and Rhythm Respiratory: Yes: Regular Peripheral Pulses WNL: Yes Integumentary: Yes: Other (diabetic ulcer right foot) Neurological: Yes: Alert, Oriented Psychiatric: Yes: Alert, Oriented Labs: CBC, BMP 04/06/17 06:15 04/06/17 06:15 Problem List - Problems (1) Cellulitis of right leg Assessment/Plan: -seen by ID and Podiatry -awaiting MRI to r/o osteomyelitis Code(s): L03.115 - CELLULITIS OF RIGHT LOWER LIMB (2) Diabetic foot ulcer Code(s): E11.621 - TYPE 2 DIABETES MELLITUS WITH FOOT ULCER L97.509 - NON-PRESSURE CHRONIC ULCER OTH PRT UNSP FOOT W UNSP SEVERITY Qualifiers: Diabetic foot ulcer location: heel Diabetes mellitus type: type 1 Laterality: right Non-pressure ulcer stage: with necrosis of muscle Qualified Code(s): E10.621 - Type 1 diabetes mellitus with foot ulcer; E10.621 - Type 1 diabetes mellitus with foot ulcer; E10.621 - Type 1 diabetes mellitus with foot ulcer; E10.621 - Type 1 diabetes mellitus with foot ulcer; L97.411 - Non-pressure chronic ulcer of right heel and midfoot limited to breakdown of skin; L97.411 - Non-pressure chronic ulcer of right heel and midfoot limited to breakdown of skin; L97.411 - Non-pressure chronic ulcer of right heel and midfoot limited to breakdown of skin; L97.411 - Non-pressure chronic ulcer of right heel and midfoot limited to breakdown of skin (3) HTN (hypertension) Assessment/Plan: -low sodium/diabetic diet -controlled on norvasc and cozaar monitor renal function and Potassium Code(s): I10 - ESSENTIAL (PRIMARY) HYPERTENSION (4) Diabetes mellitus Assessment/Plan: -last HgA1C at 9.1 -seen by endocrinology -has insulin pump that is managed by endocrinology -low sodium/diabetic diet Code(s): E11.9 - TYPE 2 DIABETES MELLITUS WITHOUT COMPLICATIONS Qualifiers: Diabetes mellitus type: type 1 Diabetes mellitus complication status: with skin complications Diabetes mellitus complication detail: with foot ulcer Qualified Code(s): E10.621 - Type 1 diabetes mellitus with foot ulcer ; E10.621 - Type 1 diabetes mellitus with foot ulcer; E10.621 - Type 1 diabetes mellitus with foot ulcer; E10.621 - Type 1 diabetes mellitus with foot ulcer; L97.509 - Non-pressure chronic ulcer of other part of unspecified foot with unspecified severity; L97.509 - Non-pressure chronic ulcer of other part of unspecified foot with unspecified severity; L97.509 - Non-pressure chronic ulcer of other part of unspecified foot with unspecified severity; L97.509 - Non -pressure chronic ulcer of other part of unspecified foot with unspecified severity Assessment/Plan see problem list
[2017-04-07] MEDS: LIPASE/PROTEASE/AMYLASE 36,000 UNIT CAPSULE PO SCH ×3 (08:37→17:45)
[2017-04-07] MEDS: HEPARIN NA (PORCINE) 5,000 UNITS/ML 1ML VIAL SQ SCH ×2 (10:20→21:41)
[2017-04-07] MEDS: PANTOPRAZOLE 40 MG TABLET (FP) PO SCH (10:21)
[2017-04-07] MEDS: amLODIPine BESYLATE 10 MG TABLET (FP) PO SCH (10:21)
[2017-04-07] MEDS: LOSARTAN POTASSIUM 50 MG TABLET (FP) PO SCH (10:21)
[2017-04-07] MEDS: MUPIROCIN 2% TOPICAL OINTMENT 22 GM TUBE TP SCH ×2 (10:21→21:41)
[2017-04-07] MEDS ORDERED: PT OWN MED DRAWER 7, Y5N ONE ×2 (12:14→18:01)
--- NOTE | 2017-04-07 13:14 | PN ---
Progress Note, Physician Chief Complaint: I.D. Progress note: History of Present Illness: Pt seen and examined. Chart and labs reviewed. No new event. Patient states he feels well. Denies pain, fever/chills, abd pain/n/v/d. - Current Medication List Current Medications: Active Medications Acetaminophen (Tylenol -) 650 mg PO Q6H PRN PRN Reason: FEVER OR PAIN Amlodipine Besylate (Norvasc -) 10 mg PO DAILY [facility] Last Admin: 04/07/17 10:21 Dose: 10 mg Heparin Sodium (Porcine) (Heparin -) 5,000 unit SQ BID [facility] Last Admin: 04/07/17 10:20 Dose: Not Given Losartan Potassium (Cozaar -) 50 mg PO DAILY [facility] Last Admin: 04/07/17 10:21 Dose: 50 mg Mupirocin (Bactroban 2% Ointment -) 1 applic TP BID [facility] Last Admin: 04/07/17 10:21 Dose: 1 applic Pancrelipase (Creon Dr 36,000 Units Capsule) 1 cap PO TIDCM [facility] Last Admin: 04/07/17 12:22 Dose: 1 cap Pantoprazole Sodium (Protonix -) 40 mg PO DAILY [facility] Last Admin: 04/07/17 10:21 Dose: 40 mg - Objective Vital Signs: Vital Signs Temperature 98.7 F 04/07/17 10:00 Pulse Rate 83 04/07/17 10:00 Respiratory Rate 18 04/07/17 10:00 Blood Pressure 160/80 04/07/17 10:00 O2 Sat by Pulse Oximetry (%) 99 04/06/17 10:00 Constitutional: Yes: No Distress, Calm HENT: Yes: Atraumatic Cardiovascular: Yes: Regular Rate and Rhythm Respiratory: Yes: CTA Bilaterally Gastrointestinal: Yes: Normal Bowel Sounds, Soft Genitourinary: Yes: WNL Musculoskeletal: Yes: WNL Extremities: Yes: Erythema (LLE, no warmth) Integumentary: Yes: Other Wound/Incision: Yes: Dressing Dry and Intact (Rt foot) Neurological: Yes: Alert, Oriented Psychiatric: Yes: WNL Labs: CBC, BMP 04/06/17 06:15 04/06/17 06:15 Microbiology 04/05/17 12:00 Gram Stain - Final Foot - Right Heel Wound Culture - Preliminary Diphtheroid/Corynebacterium Problem List - Problems (1) Cellulitis of right leg Code(s): L03.115 - CELLULITIS OF RIGHT LOWER LIMB (2) Diabetic foot ulcer Code(s): E11.621 - TYPE 2 DIABETES MELLITUS WITH FOOT ULCER L97.509 - NON-PRESSURE CHRONIC ULCER OTH PRT UNSP FOOT W UNSP SEVERITY Qualifiers: Diabetic foot ulcer location: heel Diabetes mellitus type: type 1 Laterality: right Non-pressure ulcer stage: with necrosis of muscle Qualified Code(s): E10.621 - Type 1 diabetes mellitus with foot ulcer; E10.621 - Type 1 diabetes mellitus with foot ulcer; E10.621 - Type 1 diabetes mellitus with foot ulcer; E10.621 - Type 1 diabetes mellitus with foot ulcer; L97.411 - Non-pressure chronic ulcer of right heel and midfoot limited to breakdown of skin; L97.411 - Non-pressure chronic ulcer of right heel and midfoot limited to breakdown of skin; L97.411 - Non-pressure chronic ulcer of right heel and midfoot limited to breakdown of skin; L97.411 - Non-pressure chronic ulcer of right heel and midfoot limited to breakdown of skin (3) HTN (hypertension) Code(s): I10 - ESSENTIAL (PRIMARY) HYPERTENSION (4) Osteomyelitis of foot Code(s): M86.9 - OSTEOMYELITIS, UNSPECIFIED (5) Diabetes mellitus Code(s): E11.9 - TYPE 2 DIABETES MELLITUS WITHOUT COMPLICATIONS Qualifiers: Diabetes mellitus type: type 1 Diabetes mellitus complication status: with skin complications Diabetes mellitus complication detail: with foot ulcer Qualified Code(s): E10.621 - Type 1 diabetes mellitus with foot ulcer ; E10.621 - Type 1 diabetes mellitus with foot ulcer; E10.621 - Type 1 diabetes mellitus with foot ulcer; E10.621 - Type 1 diabetes mellitus with foot ulcer; L97.509 - Non-pressure chronic ulcer of other part of unspecified foot with unspecified severity; L97.509 - Non-pressure chronic ulcer of other part of unspecified foot with unspecified severity; L97.509 - Non-pressure chronic ulcer of other part of unspecified foot with unspecified severity; L97.509 - Non -pressure chronic ulcer of other part of unspecified foot with unspecified severity Assessment/Plan Infected Rt heel ulcer r/o OM Recurrent RLE Cellulitis DM - monitor off antibiotics for now - awaiting MRI, Bone biopsy - continue wound care pt clinically stable at this time
--- NOTE | 2017-04-07 13:56 | PN ---
Progress Note, Physician Chief Complaint: Right lower extremity cellulitis History of Present Illness: Patient alert, sitting on a chair, denies any pain, no SOB, afebrile, not in distress. - Current Medication List Current Medications: Active Medications Acetaminophen (Tylenol -) 650 mg PO Q6H PRN PRN Reason: FEVER OR PAIN Amlodipine Besylate (Norvasc -) 10 mg PO DAILY [facility] Last Admin: 04/07/17 10:21 Dose: 10 mg Heparin Sodium (Porcine) (Heparin -) 5,000 unit SQ BID [facility] Last Admin: 04/07/17 10:20 Dose: Not Given Losartan Potassium (Cozaar -) 50 mg PO DAILY [facility] Last Admin: 04/07/17 10:21 Dose: 50 mg Mupirocin (Bactroban 2% Ointment -) 1 applic TP BID [facility] Last Admin: 04/07/17 10:21 Dose: 1 applic Pancrelipase (Creon Dr 36,000 Units Capsule) 1 cap PO TIDCM [facility] Last Admin: 04/07/17 12:22 Dose: 1 cap Pantoprazole Sodium (Protonix -) 40 mg PO DAILY [facility] Last Admin: 04/07/17 10:21 Dose: 40 mg - Objective Vital Signs: Vital Signs Temperature 98.7 F 04/07/17 10:00 Pulse Rate 83 04/07/17 10:00 Respiratory Rate 18 04/07/17 10:00 Blood Pressure 160/80 04/07/17 10:00 O2 Sat by Pulse Oximetry (%) 99 04/06/17 10:00 Constitutional: Yes: No Distress, Calm, Obese Eyes: Yes: Conjunctiva Clear HENT: Yes: Normocephalic Neck: Yes: Supple, Trachea Midline Cardiovascular: Yes: Regular Rate and Rhythm Respiratory: Yes: Regular, CTA Bilaterally Gastrointestinal: Yes: Normal Bowel Sounds, Soft, Abdomen, Obese Extremities: Yes: Amputation (Left foot) Edema: No Neurological: Yes: Alert, Oriented Labs: CBC, BMP 04/06/17 06:15 04/06/17 06:15 Problem List - Problems (1) Cellulitis of right leg Code(s): L03.115 - CELLULITIS OF RIGHT LOWER LIMB (2) Diabetic foot ulcer Code(s): E11.621 - TYPE 2 DIABETES MELLITUS WITH FOOT ULCER L97.509 - NON-PRESSURE CHRONIC ULCER OTH PRT UNSP FOOT W UNSP SEVERITY Qualifiers: Diabetic foot ulcer location: heel Diabetes mellitus type: type 1 Laterality: right Non-pressure ulcer stage: with necrosis of muscle Qualified Code(s): E10.621 - Type 1 diabetes mellitus with foot ulcer; E10.621 - Type 1 diabetes mellitus with foot ulcer; E10.621 - Type 1 diabetes mellitus with foot ulcer; E10.621 - Type 1 diabetes mellitus with foot ulcer; L97.411 - Non-pressure chronic ulcer of right heel and midfoot limited to breakdown of skin; L97.411 - Non-pressure chronic ulcer of right heel and midfoot limited to breakdown of skin; L97.411 - Non-pressure chronic ulcer of right heel and midfoot limited to breakdown of skin; L97.411 - Non-pressure chronic ulcer of right heel and midfoot limited to breakdown of skin (3) HTN (hypertension) Code(s): I10 - ESSENTIAL (PRIMARY) HYPERTENSION (4) Diabetes mellitus Code(s): E11.9 - TYPE 2 DIABETES MELLITUS WITHOUT COMPLICATIONS Qualifiers: Diabetes mellitus type: type 1 Diabetes mellitus complication status: with skin complications Diabetes mellitus complication detail: with foot ulcer Qualified Code(s): E10.621 - Type 1 diabetes mellitus with foot ulcer ; E10.621 - Type 1 diabetes mellitus with foot ulcer; E10.621 - Type 1 diabetes mellitus with foot ulcer; E10.621 - Type 1 diabetes mellitus with foot ulcer; L97.509 - Non-pressure chronic ulcer of other part of unspecified foot with unspecified severity; L97.509 - Non-pressure chronic ulcer of other part of unspecified foot with unspecified severity; L97.509 - Non-pressure chronic ulcer of other part of unspecified foot with unspecified severity; L97.509 - Non -pressure chronic ulcer of other part of unspecified foot with unspecified severity Assessment/Plan (1) Cellulitis of right leg Assessment/Plan: -ID and Podiatry on board -awaiting MRI and bone biopsy -monitor off antibiotic for now -continue wound care Code(s): L03.115 - CELLULITIS OF RIGHT LOWER LIMB (2) Diabetic foot ulcer Assessment/Plan: -ID and Podiatry on board -continue wound care Code(s): E11.621 - TYPE 2 DIABETES MELLITUS WITH FOOT ULCER L97.509 - NON-PRESSURE CHRONIC ULCER OTH PRT UNSP FOOT W UNSP SEVERITY Qualifiers: Diabetic foot ulcer location: heel Diabetes mellitus type: type 1 Laterality: right Non-pressure ulcer stage: with necrosis of muscle Qualified Code(s): E10.621 - Type 1 diabetes mellitus with foot ulcer; E10.621 - Type 1 diabetes mellitus with foot ulcer; E10.621 - Type 1 diabetes mellitus with foot ulcer; E10.621 - Type 1 diabetes mellitus with foot ulcer; L97.411 - Non-pressure chronic ulcer of right heel and midfoot limited to breakdown of skin; L97.411 - Non-pressure chronic ulcer of right heel and midfoot limited to breakdown of skin; L97.411 - Non-pressure chronic ulcer of right heel and midfoot limited to breakdown of skin; L97.411 - Non-pressure chronic ulcer of right heel and midfoot limited to breakdown of skin (3) HTN (hypertension) Assessment/Plan: -low sodium/diabetic diet -monitor blood pressure closely Code(s): I10 - ESSENTIAL (PRIMARY) HYPERTENSION (4) Diabetes mellitus Assessment/Plan: -endocrinology consult appreciated -has insulin pump that is managed by endocrinology -low sodium/diabetic diet Code(s): E11.9 - TYPE 2 DIABETES MELLITUS WITHOUT COMPLICATIONS Qualifiers: Diabetes mellitus type: type 1 Diabetes mellitus complication status: with skin complications Diabetes mellitus complication detail: with foot ulcer Qualified Code(s): E10.621 - Type 1 diabetes mellitus with foot ulcer ; E10.621 - Type 1 diabetes mellitus with foot ulcer; E10.621 - Type 1 diabetes mellitus with foot ulcer; E10.621 - Type 1 diabetes mellitus with foot ulcer; L97.509 - Non-pressure chronic ulcer of other part of unspecified foot with unspecified severity; L97.509 - Non-pressure chronic ulcer of other part of unspecified foot with unspecified severity; L97.509 - Non-pressure chronic ulcer of other part of unspecified foot with unspecified severity; L97.509 - Non -pressure chronic ulcer of other part of unspecified foot with unspecified severity
--- NOTE | 2017-04-07 14:31 | PN ---
Progress Note (short form) - Note Progress Note: Podiatry F/U: Seen/evaluated at bedside, NAD. Off abx now. Denies F/V/N/C/SOB/CP. AFebrile, VSS. Awaiting MRI R foot. JESSICA: R heel: posterior heel diabetic ulcer mostly granular base, no purulence, no fluctuance, no periwound erythema, lower leg erythema, no lymphangitis, no soft tissue crepitus. WBC: 6.9 ESR: 65 MRI: pending Imp: 57 year old IDDM M with R heel diabetic ulcer and cellulitis, assessment for osteomyelitis 1. IV abx held in anticipation of bone biopsy procedure 2. Risks, benefits, alternatives to sx discussed with patient at length. He is in agreement for planned procedure. Plan for R heel debridement of ulcer with bone biopsy 04/09 3. NPO tomorrow midnight 4. Continue local wound care 5. Will follow Kathya Buenrostro DPM
[2017-04-08] MEDS ORDERED: PT OWN MED DRAWER 7, Y5N ONE ×3 (08:16→18:13)
[2017-04-08] MEDS: LIPASE/PROTEASE/AMYLASE 36,000 UNIT CAPSULE PO SCH ×3 (08:32→18:05)
[2017-04-08] MEDS: amLODIPine BESYLATE 10 MG TABLET (FP) PO SCH (09:15)
[2017-04-08] MEDS: LOSARTAN POTASSIUM 50 MG TABLET (FP) PO SCH (09:15)
[2017-04-08] MEDS: PANTOPRAZOLE 40 MG TABLET (FP) PO SCH (09:15)
[2017-04-08] MEDS: HEPARIN NA (PORCINE) 5,000 UNITS/ML 1ML VIAL SQ SCH ×2 (09:15→22:53)
[2017-04-08] MEDS: MUPIROCIN 2% TOPICAL OINTMENT 22 GM TUBE TP SCH ×2 (09:16→22:53)
[2017-04-08 09:35] LABS: BASOPHIL 0.6 % (0-2.0); EOSINOPHIL 3.2 % (0-4.5); MCH 28.7 pg (25.7-33.7); MEAN PLT VOLUME 7.5 fl (7.5-11.1); NEUTROPHILS 64.2 % (42.8-82.8); PLATELET COUNT 360 K/MM3 (134-434); RDW 14.7 % (11.9-15.9); WHITE BLOOD COUNT 7.3 K/mm3 (4.0-10.0)
[2017-04-08 10:01] LABS: ALK PHOS 78 U/L (45-117); ANION GAP 7 (8-16); BILIRUBIN,TOTAL 0.4 mg/dL (0.2-1.0); CALCIUM 8.5 mg/dL (8.5-10.1); CO2 31 mmol/L (21-32); CREATININE 0.9 mg/dL (0.7-1.3); GLUCOSE,RANDOM 119 mg/dL (74-106); SGOT/AST 9 U/L (15-37); SGPT/ALT 16 U/L (12-78); TOT PROT 6.7 g/dl (6.4-8.2)
--- NOTE | 2017-04-08 12:34 | PN ---
Progress Note, Physician Chief Complaint: Right lower extremity cellulitis History of Present Illness: Patient alert, sitting on a chair, denies any pain, no SOB, afebrile, not in distress. - Current Medication List Current Medications: Active Medications Acetaminophen (Tylenol -) 650 mg PO Q6H PRN PRN Reason: FEVER OR PAIN Amlodipine Besylate (Norvasc -) 10 mg PO DAILY [facility] Last Admin: 04/08/17 09:15 Dose: 10 mg Heparin Sodium (Porcine) (Heparin -) 5,000 unit SQ BID [facility] Last Admin: 04/08/17 09:15 Dose: 5,000 unit Losartan Potassium (Cozaar -) 50 mg PO DAILY [facility] Last Admin: 04/08/17 09:15 Dose: 50 mg Mupirocin (Bactroban 2% Ointment -) 1 applic TP BID [facility] Last Admin: 04/08/17 09:16 Dose: 1 applic Pancrelipase (Creon Dr 36,000 Units Capsule) 1 cap PO TIDCM [facility] Last Admin: 04/08/17 08:32 Dose: 1 cap Pantoprazole Sodium (Protonix -) 40 mg PO DAILY [facility] Last Admin: 04/08/17 09:15 Dose: 40 mg - Objective Vital Signs: Vital Signs Temperature 98.6 F 04/08/17 09:00 Pulse Rate 84 04/08/17 09:00 Respiratory Rate 18 04/08/17 09:00 Blood Pressure 145/77 04/08/17 09:00 O2 Sat by Pulse Oximetry (%) 98 04/08/17 10:00 Constitutional: Yes: Well Nourished, No Distress, Calm Eyes: Yes: EOM Intact HENT: Yes: Atraumatic, Normocephalic Neck: Yes: Supple, Trachea Midline Cardiovascular: Yes: Regular Rate and Rhythm, S1, S2 Respiratory: Yes: Regular, CTA Bilaterally Gastrointestinal: Yes: Normal Bowel Sounds, Abdomen, Obese Extremities: Yes: Other (Swelling noted, intact dressing Right Lower Extremity) Labs: CBC, BMP 04/08/17 09:05 04/08/17 09:05 Problem List - Problems (1) Cellulitis of right leg Code(s): L03.115 - CELLULITIS OF RIGHT LOWER LIMB (2) Diabetic foot ulcer Code(s): E11.621 - TYPE 2 DIABETES MELLITUS WITH FOOT ULCER L97.509 - NON-PRESSURE CHRONIC ULCER OTH PRT UNSP FOOT W UNSP SEVERITY Qualifiers: Diabetic foot ulcer location: heel Diabetes mellitus type: type 1 Laterality: right Non-pressure ulcer stage: with necrosis of muscle Qualified Code(s): E10.621 - Type 1 diabetes mellitus with foot ulcer; E10.621 - Type 1 diabetes mellitus with foot ulcer; E10.621 - Type 1 diabetes mellitus with foot ulcer; E10.621 - Type 1 diabetes mellitus with foot ulcer; L97.411 - Non-pressure chronic ulcer of right heel and midfoot limited to breakdown of skin; L97.411 - Non-pressure chronic ulcer of right heel and midfoot limited to breakdown of skin; L97.411 - Non-pressure chronic ulcer of right heel and midfoot limited to breakdown of skin; L97.411 - Non-pressure chronic ulcer of right heel and midfoot limited to breakdown of skin (3) HTN (hypertension) Code(s): I10 - ESSENTIAL (PRIMARY) HYPERTENSION (4) Diabetes mellitus Code(s): E11.9 - TYPE 2 DIABETES MELLITUS WITHOUT COMPLICATIONS Qualifiers: Diabetes mellitus type: type 1 Diabetes mellitus complication status: with skin complications Diabetes mellitus complication detail: with foot ulcer Qualified Code(s): E10.621 - Type 1 diabetes mellitus with foot ulcer ; E10.621 - Type 1 diabetes mellitus with foot ulcer; E10.621 - Type 1 diabetes mellitus with foot ulcer; E10.621 - Type 1 diabetes mellitus with foot ulcer; L97.509 - Non-pressure chronic ulcer of other part of unspecified foot with unspecified severity; L97.509 - Non-pressure chronic ulcer of other part of unspecified foot with unspecified severity; L97.509 - Non-pressure chronic ulcer of other part of unspecified foot with unspecified severity; L97.509 - Non -pressure chronic ulcer of other part of unspecified foot with unspecified severity Assessment/Plan (1) Cellulitis of right leg Assessment/Plan: -ID and Podiatry on board -MRI of Left Lower Extremity noted and reviewed -IV abx held for bone biopsy as per Podiatry -continue wound care Code(s): L03.115 - CELLULITIS OF RIGHT LOWER LIMB (2) Diabetic foot ulcer Assessment/Plan: -ID and Podiatry on board -For bone biopsy josefina, NPO at midnight -continue wound care Code(s): E11.621 - TYPE 2 DIABETES MELLITUS WITH FOOT ULCER L97.509 - NON-PRESSURE CHRONIC ULCER OTH PRT UNSP FOOT W UNSP SEVERITY Qualifiers: Diabetic foot ulcer location: heel Diabetes mellitus type: type 1 Laterality: right Non-pressure ulcer stage: with necrosis of muscle Qualified Code(s): E10.621 - Type 1 diabetes mellitus with foot ulcer; E10.621 - Type 1 diabetes mellitus with foot ulcer; E10.621 - Type 1 diabetes mellitus with foot ulcer; E10.621 - Type 1 diabetes mellitus with foot ulcer; L97.411 - Non-pressure chronic ulcer of right heel and midfoot limited to breakdown of skin; L97.411 - Non-pressure chronic ulcer of right heel and midfoot limited to breakdown of skin; L97.411 - Non-pressure chronic ulcer of right heel and midfoot limited to breakdown of skin; L97.411 - Non-pressure chronic ulcer of right heel and midfoot limited to breakdown of skin (3) HTN (hypertension) Assessment/Plan: -low sodium/diabetic diet -monitor blood pressure closely Code(s): I10 - ESSENTIAL (PRIMARY) HYPERTENSION (4) Diabetes mellitus Assessment/Plan: -endocrinology consult appreciated -has insulin pump that is managed by endocrinology -low sodium/diabetic diet Code(s): E11.9 - TYPE 2 DIABETES MELLITUS WITHOUT COMPLICATIONS Qualifiers: Diabetes mellitus type: type 1 Diabetes mellitus complication status: with skin complications Diabetes mellitus complication detail: with foot ulcer Qualified Code(s): E10.621 - Type 1 diabetes mellitus with foot ulcer ; E10.621 - Type 1 diabetes mellitus with foot ulcer; E10.621 - Type 1 diabetes mellitus with foot ulcer; E10.621 - Type 1 diabetes mellitus with foot ulcer; L97.509 - Non-pressure chronic ulcer of other part of unspecified foot with unspecified severity; L97.509 - Non-pressure chronic ulcer of other part of unspecified foot with unspecified severity; L97.509 - Non-pressure chronic ulcer of other part of unspecified foot with unspecified severity; L97.509 - Non -pressure chronic ulcer of other part of unspecified foot with unspecified severity -Seen by Podiatry, will proceed with bone biopsy tomorrow., NPO at midnight
--- NOTE | 2017-04-08 12:50 | PN ---
Progress Note, Physician Chief Complaint: I.D. progress note History of Present Illness: Pt seen and examined, notes reviewed. He states he feels well. Denies pain, fever, chills. Dressing done. - Current Medication List Current Medications: Active Medications Acetaminophen (Tylenol -) 650 mg PO Q6H PRN PRN Reason: FEVER OR PAIN Amlodipine Besylate (Norvasc -) 10 mg PO DAILY [facility] Last Admin: 04/08/17 09:15 Dose: 10 mg Heparin Sodium (Porcine) (Heparin -) 5,000 unit SQ BID [facility] Last Admin: 04/08/17 09:15 Dose: 5,000 unit Losartan Potassium (Cozaar -) 50 mg PO DAILY [facility] Last Admin: 04/08/17 09:15 Dose: 50 mg Mupirocin (Bactroban 2% Ointment -) 1 applic TP BID [facility] Last Admin: 04/08/17 09:16 Dose: 1 applic Pancrelipase (Creon Dr 36,000 Units Capsule) 1 cap PO TIDCM [facility] Last Admin: 04/08/17 08:32 Dose: 1 cap Pantoprazole Sodium (Protonix -) 40 mg PO DAILY [facility] Last Admin: 04/08/17 09:15 Dose: 40 mg - Objective Vital Signs: Vital Signs Temperature 98.6 F 04/08/17 09:00 Pulse Rate 84 04/08/17 09:00 Respiratory Rate 18 04/08/17 09:00 Blood Pressure 145/77 04/08/17 09:00 O2 Sat by Pulse Oximetry (%) 98 04/08/17 10:00 Constitutional: Yes: No Distress, Calm HENT: Yes: Atraumatic Neck: Yes: Supple Cardiovascular: Yes: Regular Rate and Rhythm Respiratory: Yes: CTA Bilaterally Gastrointestinal: Yes: Normal Bowel Sounds, Soft Extremities: Yes: Erythema (Rt LE erythema, no warmth or tenderness, mild edema) Wound/Incision: Yes: Dressing Dry and Intact Neurological: Yes: Alert, Oriented Labs: CBC, BMP 04/08/17 09:05 04/08/17 09:05 Problem List - Problems (1) Cellulitis of right leg Code(s): L03.115 - CELLULITIS OF RIGHT LOWER LIMB (2) Diabetic foot ulcer Code(s): E11.621 - TYPE 2 DIABETES MELLITUS WITH FOOT ULCER L97.509 - NON-PRESSURE CHRONIC ULCER OTH PRT UNSP FOOT W UNSP SEVERITY Qualifiers: Qualified Code(s): E10.621 - Type 1 diabetes mellitus with foot ulcer; E10.621 - Type 1 diabetes mellitus with foot ulcer; E10.621 - Type 1 diabetes mellitus with foot ulcer; E10.621 - Type 1 diabetes mellitus with foot ulcer; L97.411 - Non-pressure chronic ulcer of right heel and midfoot limited to breakdown of skin; L97.411 - Non-pressure chronic ulcer of right heel and midfoot limited to breakdown of skin; L97.411 - Non-pressure chronic ulcer of right heel and midfoot limited to breakdown of skin; L97.411 - Non-pressure chronic ulcer of right heel and midfoot limited to breakdown of skin (3) HTN (hypertension) Code(s): I10 - ESSENTIAL (PRIMARY) HYPERTENSION (4) Osteomyelitis of foot Code(s): M86.9 - OSTEOMYELITIS, UNSPECIFIED (5) Diabetes mellitus Code(s): E11.9 - TYPE 2 DIABETES MELLITUS WITHOUT COMPLICATIONS Qualifiers: Qualified Code(s): E10.621 - Type 1 diabetes mellitus with foot ulcer; E10.621 - Type 1 diabetes mellitus with foot ulcer; E10.621 - Type 1 diabetes mellitus with foot ulcer; E10.621 - Type 1 diabetes mellitus with foot ulcer; L97.509 - Non-pressure chronic ulcer of other part of unspecified foot with unspecified severity; L97.509 - Non-pressure chronic ulcer of other part of unspecified foot with unspecified severity; L97.509 - Non-pressure chronic ulcer of other part of unspecified foot with unspecified severity; L97.509 - Non -pressure chronic ulcer of other part of unspecified foot with unspecified severity Assessment/Plan Infected Rt heel ulcer r/o OM Recurrent RLE Cellulitis DM - awaiting MRI/Bone biopsy - monitor off antibiotics at this time - continue wound care pt clinically stable
--- NOTE | 2017-04-08 13:15 | PN ---
Progress Note (short form) - Note Progress Note: Podiatry F/u: Seen/evaluated at bedside, NAD. Pain controlled, denies F/V/N/C/SOB/CP. Afebrile, VSS. JESSICA: R foot: posterior heel diabetic ulcer with granular base, probes about 0.7 cm, no purulence, no fluctuance, no soft tissue crepitus, no signs of acute infection. Lower leg erythema improving. WBC: 7.5 MRI R foot: no evidence of osteomyelitis Imp: 57 year old DM M with R heel DFU, cellulitis and rule out osteomyelitis 1. IV abx held 2. Discussed case with Infectious Disease, given chronicity of ulcer recommends bone biopsy procedure 3. NPO midnight 4. Plan for R heel debridement, bone biopsy tomorrow morning Kathya Buenrostro DPM
[2017-04-09 07:40] LABS: BASOPHIL 0.8 % (0-2.0); EOSINOPHIL 3.1 % (0-4.5); MCH 28.7 pg (25.7-33.7); MEAN CELL VOLUME 87.1 fl (80-96); NEUTROPHILS 66.1 % (42.8-82.8); PLATELET COUNT 346 K/MM3 (134-434); RDW 14.6 % (11.9-15.9); WHITE BLOOD COUNT 7.4 K/mm3 (4.0-10.0)
[2017-04-09 07:49] LABS: ANION GAP 9 (8-16); CALCIUM 8.1 mg/dL (8.5-10.1); CO2 28 mmol/L (21-32); CREATININE 0.9 mg/dL (0.7-1.3); GLUCOSE,RANDOM 192 mg/dL (74-106)
[2017-04-09] MEDS ORDERED: LIDOCAINE HCL 2% (20ML MULTI-DOSE VIAL) NR ONE (10:17)
[2017-04-09] MEDS ORDERED: MIDAZOLAM HCL 2 MG/2 ML SINGLE DOSE VIAL ONE ×2 (10:21→10:25)
[2017-04-09] MEDS ORDERED: LIDOCAINE HCL 2% (50ML VIAL) NR ONE ×2 (10:26)
[2017-04-09] MEDS: HEPARIN NA (PORCINE) 5,000 UNITS/ML 1ML VIAL SQ SCH ×2 (11:01→22:27)
[2017-04-09] MEDS: MUPIROCIN 2% TOPICAL OINTMENT 22 GM TUBE TP SCH ×2 (11:01→22:28)
[2017-04-09] MEDS: LIPASE/PROTEASE/AMYLASE 36,000 UNIT CAPSULE PO SCH ×3 (11:01→18:15)
[2017-04-09] MEDS ORDERED: ONDANSETRON 4 MG/2 ML VIAL IVPUSH PRN ×2 (11:35→12:02)
--- NOTE | 2017-04-09 11:35 | OP ---
Operative Note - Note: Operative Date: 04/09/17 Pre-Operative Diagnosis: R heel diabetic ulcer, evaluate for osteomyelitis Operation: Right heel debridement of ulcer with bone biopsy Post-Operative Diagnosis: Same as Pre-op Surgeon: Anirudh Buenrostro Anesthesia: Local, MAC Specimens Removed: Bone, right heel Estimated Blood Loss (mls): 5 Instrument used (Debridements only): #15 blade scalpel Operative Report Dictated: Yes
[2017-04-09] MEDS ORDERED: ACETAMINOPHEN 325 MG TABLET (FP) PO PRN (12:02)
[2017-04-09] MEDS: LOSARTAN POTASSIUM 50 MG TABLET (FP) PO SCH ×2 (13:04→13:15)
[2017-04-09] MEDS: amLODIPine BESYLATE 10 MG TABLET (FP) PO SCH ×2 (13:04→13:15)
[2017-04-09] MEDS: PANTOPRAZOLE 40 MG TABLET (FP) PO SCH ×2 (13:04→13:15)
--- NOTE | 2017-04-09 13:25 | PN ---
Progress Note, Physician History of Present Illness: patient doing well no issues patient post from bone biopsy - Current Medication List Current Medications: Active Medications Acetaminophen (Tylenol -) 650 mg PO Q6H PRN PRN Reason: FEVER OR PAIN Amlodipine Besylate (Norvasc -) 10 mg PO DAILY [facility] Last Admin: 04/09/17 13:15 Dose: 10 mg Fentanyl (Sublimaze Injection -) 25 mcg IVPUSH [id number] PRN PRN Reason: PAIN Stop: 04/12/17 11:36 Heparin Sodium (Porcine) (Heparin -) 5,000 unit SQ BID [facility] Losartan Potassium (Cozaar -) 50 mg PO DAILY [facility] Last Admin: 04/09/17 13:15 Dose: 50 mg Mupirocin (Bactroban 2% Ointment -) 1 applic TP BID [facility] Ondansetron HCl (Zofran Injection) 4 mg IVPUSH Q6H PRN PRN Reason: NAUSEA AND/OR VOMITING Stop: 04/09/17 17:36 Oxycodone HCl (Roxicodone -) 5 mg PO Q4H PRN PRN Reason: PAIN LEVEL 1-5 Pancrelipase (Creon Dr 36,000 Units Capsule) 1 cap PO TIDCM [facility] Pantoprazole Sodium (Protonix -) 40 mg PO DAILY [facility] Last Admin: 04/09/17 13:15 Dose: 40 mg - Objective Vital Signs: Vital Signs Temperature 98.0 F 04/09/17 12:15 Pulse Rate 76 04/09/17 12:15 Respiratory Rate 16 04/09/17 12:15 Blood Pressure 145/70 04/09/17 12:15 O2 Sat by Pulse Oximetry (%) 98 04/09/17 12:00 Constitutional: Yes: No Distress, Calm Cardiovascular: Yes: Regular Rate and Rhythm Respiratory: Yes: Regular, CTA Bilaterally Gastrointestinal: Yes: Normal Bowel Sounds, Soft Musculoskeletal: Yes: WNL Extremities: Yes: Erythema (improving) Wound/Incision: Yes: Dressing Dry and Intact Neurological: Yes: Alert, Oriented Psychiatric: Yes: Alert, Oriented Labs: CBC, BMP 04/09/17 06:30 04/09/17 06:30 Assessment/Plan Problem List - Problems (1) Cellulitis of right leg Code(s): L03.115 - CELLULITIS OF RIGHT LOWER LIMB (2) HTN (hypertension) Code(s): I10 - ESSENTIAL (PRIMARY) HYPERTENSION (3) Diabetes mellitus Code(s): E11.9 - TYPE 2 DIABETES MELLITUS WITHOUT COMPLICATIONS Qualifiers: Diabetes mellitus type: type 1 Diabetes mellitus complication status: with skin complications Diabetes mellitus complication detail: with foot ulcer Qualified Code(s): E10.621 - Type 1 diabetes mellitus with foot ulcer ; E10.621 - Type 1 diabetes mellitus with foot ulcer; E10.621 - Type 1 diabetes mellitus with foot ulcer; E10.621 - Type 1 diabetes mellitus with foot ulcer; L97.509 - Non-pressure chronic ulcer of other part of unspecified foot with unspecified severity; L97.509 - Non-pressure chronic ulcer of other part of unspecified foot with unspecified severity; L97.509 - Non-pressure chronic ulcer of other part of unspecified foot with unspecified severity; L97.509 - Non -pressure chronic ulcer of other part of unspecified foot with unspecified severity r/o osteo rt heel ulcer wound infection plan will start o zosyn rest as per primary
[2017-04-09] MEDS ORDERED: PT OWN MED DRAWER 7, Y5N ONE ×2 (18:09→21:39)
[2017-04-09] MEDS: oxyCODONE HCL 5 MG TABLET PO PRN ×2 (18:13→22:38)
[2017-04-09] MEDS: PIPERACILLIN/TAZOB 3.375 GM 50 ML IVPB SCH ×2 (18:14→18:15)
--- NOTE | 2017-04-09 20:49 | PN ---
Progress Note, Physician Chief Complaint: Right lower extremity cellulitis History of Present Illness: NAD contact isolation seen by Podiatry and ID MRI negative for osteo debridment and bone biopsy today pain management - Current Medication List Current Medications: Active Medications Acetaminophen (Tylenol -) 650 mg PO Q6H PRN PRN Reason: FEVER OR PAIN Amlodipine Besylate (Norvasc -) 10 mg PO DAILY [facility] Last Admin: 04/09/17 13:15 Dose: 10 mg Fentanyl (Sublimaze Injection -) 25 mcg IVPUSH [id number] PRN PRN Reason: PAIN Stop: 04/12/17 11:36 Heparin Sodium (Porcine) (Heparin -) 5,000 unit SQ BID [facility] Piperacillin/Tazobactam/Dextrose (Zosyn 3.375gm Ivpb (Premix)) 50 mls @ 100 mls /hr IVPB Q8H-IV CHERYL PRN Reason: Protocol Last Admin: 04/09/17 18:15 Dose: Not Given Losartan Potassium (Cozaar -) 50 mg PO DAILY [facility] Last Admin: 04/09/17 13:15 Dose: 50 mg Mupirocin (Bactroban 2% Ointment -) 1 applic TP BID [facility] Oxycodone HCl (Roxicodone -) 5 mg PO Q4H PRN PRN Reason: PAIN LEVEL 1-5 Last Admin: 04/09/17 18:13 Dose: 5 mg Pancrelipase (Creon Dr 36,000 Units Capsule) 1 cap PO TIDCM [facility] Last Admin: 04/09/17 18:15 Dose: 1 cap Pantoprazole Sodium (Protonix -) 40 mg PO DAILY [facility] Last Admin: 04/09/17 13:15 Dose: 40 mg - Objective Vital Signs: Vital Signs Temperature 98.3 F 04/09/17 19:00 Pulse Rate 72 04/09/17 19:00 Respiratory Rate 18 04/09/17 19:00 Blood Pressure 152/72 04/09/17 19:00 O2 Sat by Pulse Oximetry (%) 98 04/09/17 13:00 Constitutional: Yes: Well Nourished, No Distress, Calm Cardiovascular: Yes: Regular Rate and Rhythm Respiratory: Yes: Regular Wound/Incision: Yes: Dressing Dry and Intact Neurological: Yes: Alert, Oriented Psychiatric: Yes: Alert, Oriented Labs: CBC, BMP 04/09/17 06:30 04/09/17 06:30 Problem List - Problems (1) Cellulitis of right leg Assessment/Plan: -seen by ID and Podiatry -MRI negative for osteomyelitis -IV abx Code(s): L03.115 - CELLULITIS OF RIGHT LOWER LIMB (2) Diabetic foot ulcer Assessment/Plan: -wound care -seen by ID -debridement today -IV abx Code(s): E11.621 - TYPE 2 DIABETES MELLITUS WITH FOOT ULCER L97.509 - NON-PRESSURE CHRONIC ULCER OTH PRT UNSP FOOT W UNSP SEVERITY Qualifiers: Diabetic foot ulcer location: heel Diabetes mellitus type: type 1 Laterality: right Non-pressure ulcer stage: with necrosis of muscle Qualified Code(s): E10.621 - Type 1 diabetes mellitus with foot ulcer; E10.621 - Type 1 diabetes mellitus with foot ulcer; E10.621 - Type 1 diabetes mellitus with foot ulcer; E10.621 - Type 1 diabetes mellitus with foot ulcer; L97.411 - Non-pressure chronic ulcer of right heel and midfoot limited to breakdown of skin; L97.411 - Non-pressure chronic ulcer of right heel and midfoot limited to breakdown of skin; L97.411 - Non-pressure chronic ulcer of right heel and midfoot limited to breakdown of skin; L97.411 - Non-pressure chronic ulcer of right heel and midfoot limited to breakdown of skin (3) HTN (hypertension) Assessment/Plan: -low sodium/diabetic diet -borderline on norvasc and cozaar, would increase cozaar -Cardiology consult -monitor renal function and Potassium Code(s): I10 - ESSENTIAL (PRIMARY) HYPERTENSION (4) Diabetes mellitus Assessment/Plan: -last HgA1C at 9.1 -seen by endocrinology -has insulin pump that is managed by endocrinology -low sodium/diabetic diet Code(s): E11.9 - TYPE 2 DIABETES MELLITUS WITHOUT COMPLICATIONS Qualifiers: Diabetes mellitus type: type 1 Diabetes mellitus complication status: with skin complications Diabetes mellitus complication detail: with foot ulcer Qualified Code(s): E10.621 - Type 1 diabetes mellitus with foot ulcer ; E10.621 - Type 1 diabetes mellitus with foot ulcer; E10.621 - Type 1 diabetes mellitus with foot ulcer; E10.621 - Type 1 diabetes mellitus with foot ulcer; L97.509 - Non-pressure chronic ulcer of other part of unspecified foot with unspecified severity; L97.509 - Non-pressure chronic ulcer of other part of unspecified foot with unspecified severity; L97.509 - Non-pressure chronic ulcer of other part of unspecified foot with unspecified severity; L97.509 - Non -pressure chronic ulcer of other part of unspecified foot with unspecified severity (5) Anemia Assessment/Plan: -likely anemia of chronic disease -check iron profile, b12, FA and stool guaiac Code(s): D64.9 - ANEMIA, UNSPECIFIED Assessment/Plan see problem list
[2017-04-10] MEDS: PIPERACILLIN/TAZOB 3.375 GM 50 ML IVPB SCH ×3 (02:30→17:20)
[2017-04-10 08:50] LABS: BASOPHIL 0.8 % (0-2.0); MCH 28.6 pg (25.7-33.7); MCHC 32.9 g/dl (32.0-35.9); MEAN PLT VOLUME 7.7 fl (7.5-11.1); NEUTROPHILS 65.5 % (42.8-82.8); PLATELET COUNT 353 K/MM3 (134-434); RDW 14.5 % (11.9-15.9); WHITE BLOOD COUNT 6.6 K/mm3 (4.0-10.0)
[2017-04-10 09:22] LABS: ALBUMIN 2.9 g/dl (3.4-5.0); ANION GAP 6 (8-16); CALCIUM 8.1 mg/dL (8.5-10.1); CO2 31 mmol/L (21-32); GLUCOSE,RANDOM 114 mg/dL (74-106)
[2017-04-10] MEDS ORDERED: PT OWN MED DRAWER 7, Y5N ONE ×2 (10:08→10:15)
[2017-04-10] MEDS: LIPASE/PROTEASE/AMYLASE 36,000 UNIT CAPSULE PO SCH ×3 (10:11→17:20)
[2017-04-10] MEDS: LOSARTAN POTASSIUM 50 MG TABLET (FP) PO SCH (10:11)
[2017-04-10] MEDS: PANTOPRAZOLE 40 MG TABLET (FP) PO SCH (10:12)
[2017-04-10] MEDS: amLODIPine BESYLATE 10 MG TABLET (FP) PO SCH (10:12)
[2017-04-10] MEDS: HEPARIN NA (PORCINE) 5,000 UNITS/ML 1ML VIAL SQ SCH ×2 (10:15→21:41)
[2017-04-10 10:25] LABS: ALK PHOS 79 U/L (45-117); BILIRUBIN,TOTAL 0.4 mg/dL (0.2-1.0); CREATININE 1.1 mg/dL (0.7-1.3); FERRITIN 66.532 ng/ml (16.4-293.9); SGOT/AST 12 U/L (15-37); SGPT/ALT 20 U/L (12-78); TOT PROT 6.7 g/dl (6.4-8.2)
--- NOTE | 2017-04-10 11:01 | PATH ---
Surgical Pathology Report Patient Name: MARINA RAINES Med. Rec. #: [id number] /Age/Gender: 1960 (Age: 57) / M Account: [id number] Location: [address] [place] [address]/[facility] Taken: 04/09/2017 Received: 04/09/2017 Reported: 04/10/2017 Physicians: Patrick Blanco DPM Specimen(s) Received BX BONE RIGHT FOOT Clinical History Cellulitis Final Diagnosis BONE, RIGHT FOOT, BIOPSY: BONE WITH REACTIVE CHANGES. NO OSTEOMYELITIS IDENTIFIED. Electronically Signed Castillo Mccrary M.D. Gross Description Received in formalin labeled "right foot bone biopsy," is a 0.4 cm greatest dimension sena bone fragment. The specimen is submitted in toto in one cassette. 04/09/201704/09/2017
--- NOTE | 2017-04-10 11:11 | OP ---
DATE OF OPERATION: 04/09/2017 PREOPERATIVE DIAGNOSIS: Right heel diabetic ulcer. Evaluate for osteomyelitis. POSTOPERATIVE DIAGNOSIS: Right heel diabetic ulcer. Evaluate for osteomyelitis. PROCEDURE: Right heel debridement of ulcer with bone biopsy. SURGEON: Anirudh Buenrostro DPM ANESTHESIA: Sedation with IV and local. HEMOSTASIS: Surgical dissection. ESTIMATED BLOOD LOSS: Minimal. PATHOLOGY: Bone, right heel. COMPLICATIONS: None. DESCRIPTION OF PROCEDURE: The patient was brought to the operating room and placed on the operating table in the supine position. I elected to not use a tourniquet during the course of the procedure. Following the induction of IV sedation, local anesthesia was achieved utilizing 10 mL of 2% lidocaine plain. The right foot was then scrubbed and prepped and draped in the usual aseptic fashion. Attention was directed to the right posterior heel where a diabetic ulcer was visualized and appreciated. An excisional debridement was performed to level of skin and subcutaneous tissue utilizing a 15-blade scalpel. Healthy granular tissue persisted. Next, a 0.5-cm linear incision was made at the lateral aspect of the heel. The incision was deepened using blunt dissection to the level of bone. Once the bone was palpated, I introduced a Jarred needle into the lateral aspect of the calcaneus until there was firm bone noted. There was no soft, friable bone of note upon palpation. The Jarred needle was advanced until a small core of bone was removed from the lateral aspect of the calcaneus. This area of bone corresponded to the posterior heel diabetic ulcer. The Jarred needle was removed. A small fragment of the bone was sent for pathology, and a small fragment of the bone was sent for bone culture. Surgical sites were copiously irrigated with sterile saline. The incision was coapted and maintained utilizing 3-0 nylon in a simple interrupted suture fashion. Following the conclusion of the procedure, the surgical sites were covered with Xeroform, and a sterile compressive dressing was applied to the right foot consisting of sterile gauze, Hermelinda, Kerlix, and Everardo wrap. Patient tolerated the procedure and anesthesia well without complications. He was transferred from the operating room to the recovery unit with vital signs stable and neurovasculature intact to the right foot. MARISA BUTT/[id number] cc: [facility] Pod[facility]
--- NOTE | 2017-04-10 11:45 | PN ---
Progress Note, Physician Chief Complaint: Right lower extremity cellulitis History of Present Illness: NAD, sitting in chair contact isolation seen by Podiatry and ID on IV abx MRI negative for osteo awaiting bone biopsy results pain management - Current Medication List Current Medications: Active Medications Acetaminophen (Tylenol -) 650 mg PO Q6H PRN PRN Reason: FEVER OR PAIN Amlodipine Besylate (Norvasc -) 10 mg PO DAILY [facility] Last Admin: 04/10/17 10:12 Dose: 10 mg Fentanyl (Sublimaze Injection -) 25 mcg IVPUSH [id number] PRN PRN Reason: PAIN Stop: 04/12/17 11:36 Heparin Sodium (Porcine) (Heparin -) 5,000 unit SQ BID [facility] Last Admin: 04/10/17 10:15 Dose: 5,000 unit Piperacillin/Tazobactam/Dextrose (Zosyn 3.375gm Ivpb (Premix)) 50 mls @ 100 mls /hr IVPB Q8H-IV CHERYL PRN Reason: Protocol Last Admin: 04/10/17 10:16 Dose: 100 mls/hr Losartan Potassium (Cozaar -) 50 mg PO DAILY [facility] Last Admin: 04/10/17 10:11 Dose: 50 mg Mupirocin (Bactroban 2% Ointment -) 1 applic TP BID [facility] Last Admin: 04/09/17 22:28 Dose: 1 applic Oxycodone HCl (Roxicodone -) 5 mg PO Q4H PRN PRN Reason: PAIN LEVEL 1-5 Last Admin: 04/09/17 22:38 Dose: 5 mg Pancrelipase (Creon Dr 36,000 Units Capsule) 1 cap PO TIDCM [facility] Last Admin: 04/10/17 10:11 Dose: 1 cap Pantoprazole Sodium (Protonix -) 40 mg PO DAILY [facility] Last Admin: 04/10/17 10:12 Dose: 40 mg - Objective Vital Signs: Vital Signs Temperature 98.3 F 04/10/17 06:00 Pulse Rate 77 04/10/17 06:00 Respiratory Rate 18 04/10/17 06:00 Blood Pressure 127/71 04/10/17 06:00 O2 Sat by Pulse Oximetry (%) 100 04/10/17 09:03 Constitutional: Yes: Well Nourished, No Distress, Calm Cardiovascular: Yes: Regular Rate and Rhythm Respiratory: Yes: Regular Gastrointestinal: Yes: Normal Bowel Sounds Musculoskeletal: Yes: WNL Extremities: Yes: WNL Wound/Incision: Yes: Dressing Dry and Intact (RLE) Neurological: Yes: Alert, Oriented Psychiatric: Yes: Alert, Oriented Labs: CBC, BMP 04/10/17 08:00 04/10/17 08:00 Problem List - Problems (1) Cellulitis of right leg Assessment/Plan: -seen by ID and Podiatry -MRI negative for osteomyelitis -IV abx -had debridement and bone biopsy yesterday, awaiting results Code(s): L03.115 - CELLULITIS OF RIGHT LOWER LIMB (2) Diabetic foot ulcer Assessment/Plan: -wound care -seen by ID -IV abx Code(s): E11.621 - TYPE 2 DIABETES MELLITUS WITH FOOT ULCER L97.509 - NON-PRESSURE CHRONIC ULCER OTH PRT UNSP FOOT W UNSP SEVERITY Qualifiers: Diabetic foot ulcer location: heel Diabetes mellitus type: type 1 Laterality: right Non-pressure ulcer stage: with necrosis of muscle Qualified Code(s): E10.621 - Type 1 diabetes mellitus with foot ulcer; E10.621 - Type 1 diabetes mellitus with foot ulcer; E10.621 - Type 1 diabetes mellitus with foot ulcer; E10.621 - Type 1 diabetes mellitus with foot ulcer; L97.411 - Non-pressure chronic ulcer of right heel and midfoot limited to breakdown of skin; L97.411 - Non-pressure chronic ulcer of right heel and midfoot limited to breakdown of skin; L97.411 - Non-pressure chronic ulcer of right heel and midfoot limited to breakdown of skin; L97.411 - Non-pressure chronic ulcer of right heel and midfoot limited to breakdown of skin (3) HTN (hypertension) Assessment/Plan: -low sodium/diabetic diet -borderline on norvasc and cozaar -Cardiology consult -monitor renal function and Potassium Code(s): I10 - ESSENTIAL (PRIMARY) HYPERTENSION (4) Diabetes mellitus Assessment/Plan: -last HgA1C at 9.1 -seen by endocrinology -has insulin pump that is managed by endocrinology -low sodium/diabetic diet Code(s): E11.9 - TYPE 2 DIABETES MELLITUS WITHOUT COMPLICATIONS Qualifiers: Diabetes mellitus type: type 1 Diabetes mellitus complication status: with skin complications Diabetes mellitus complication detail: with foot ulcer Qualified Code(s): E10.621 - Type 1 diabetes mellitus with foot ulcer ; E10.621 - Type 1 diabetes mellitus with foot ulcer; E10.621 - Type 1 diabetes mellitus with foot ulcer; E10.621 - Type 1 diabetes mellitus with foot ulcer; L97.509 - Non-pressure chronic ulcer of other part of unspecified foot with unspecified severity; L97.509 - Non-pressure chronic ulcer of other part of unspecified foot with unspecified severity; L97.509 - Non-pressure chronic ulcer of other part of unspecified foot with unspecified severity; L97.509 - Non -pressure chronic ulcer of other part of unspecified foot with unspecified severity (5) Anemia Code(s): D64.9 - ANEMIA, UNSPECIFIED Assessment/Plan see problem list
[2017-04-10] MEDS: MUPIROCIN 2% TOPICAL OINTMENT 22 GM TUBE TP SCH ×2 (12:04→21:59)
--- NOTE | 2017-04-10 12:08 | PN ---
Progress Note (short form) - Note Progress Note: Anesthesia postop note 57 y/o M s/p MAC for Heel debridment, bone biopsy POD#1, vss, aaox3, no complaints No anesthesia complications.
--- NOTE | 2017-04-10 12:35 | PN ---
Progress Note (short form) - Note Progress Note: Podiatry F/U: Seen/evaluated at bedside, NAD. Mild pain to R foot, well controlled with PO analgesics. Denies F/V/N/C/SOB/CP. Afebrile, VSS. S/p R heel debridement of ulcer with bone biopsy POD #1. R foot: dressing C/D/I, no active bleeding. Posterior heel diabetic ulcer with granular base, no probing to bone, no purulence, no fluctuance, no ascending cellulitis, no soft tissue crepitus, no signs of active infection. Lower leg erythema improving. Sutures well coapted lateral heel, no dehiscence. WBC: 6.6 OR Cx: no growth x 24 hrs OR Path: pending Imp: 57 year old IDDM M s/p R heel debridement of diabetic ulcer with bone biopsy 1. C/w IV abx per ID 2. DSD R foot 3. TTWB R foot 4. F/u OR path, culture 5. Will follow Kathya Buenrostro DPM
--- NOTE | 2017-04-10 14:13 | CON.CARD ---
Consult Consult Specialty:: Cardiology Referred by:: Patient of Dr. Buster Faustin Reason for Consultation:: Cardiac evaluation - History of Present Illness Chief Complaint: Foot ulcer History of Present Illness: Patient is a 57 year old male with underlying history of insulin dependent diabetes mellitus with right lower extremity wound. He presents with erythema. 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 He denies chest pain, SOB or palpitations. He denies paroxysmal nocturnal dyspnea or orthopnea. He denies fever or chills. He denies headache or lightheadedness. He has had biopsy of the foot. Cardiology consultation was called for further evaluation. - History Source History Provided By: Patient, Family Member, Medical Record Limitations to Obtaining History: No Limitations - Past Medical History Cardio/Vascular: Yes: HTN, Hyperlipdemia Infectious Disease: Yes: Other (FOOT ULCER) Musculoskeletal: Yes: Other (FOOT ULCER AND REDNESS) Endocrine: Yes: Diabetes Mellitus - Past Surgical History Past Surgical History: Yes: Amputation - Alcohol/Substance Use Hx Alcohol Use: No History of Substance Use: reports: None - Smoking History Smoking history: Never smoked Have you smoked in the past 12 months: No Home Medications - Allergies Allergies/Adverse Reactions: Allergies Allergy/AdvReac Type Severity Reaction Status Date / Time No Known Drug Allergies Allergy Verified 04/03/17 12:44 - Home Medications Home Medications: Ambulatory Orders Insulin Pump Cartridge [T:Flex] 1 each SQ ASDIR 04/25/16 Sulfamethoxazole/Trimethoprim [Bactrim DS -] 1 tab PO BID 04/03/17 Review of Systems - Review of Systems Constitutional: denies: Chills, Fever Cardiovascular: denies: Chest Pain, Palpitations, Shortness of Breath Respiratory: denies: Cough, Hemoptysis, Orthopnea, PND, SOB, SOB on Exertion Gastrointestinal: denies: Abdominal Pain, Constipation, Diarrhea, Melena, Nausea , Rectal Bleeding, Vomiting Genitourinary: denies: Dysuria Neurological: denies: Dizziness, Headache, Seizure, Syncope, Weakness Vital Signs: Vital Signs Temperature 98.3 F 04/10/17 06:00 Pulse Rate 77 04/10/17 06:00 Respiratory Rate 18 04/10/17 06:00 Blood Pressure 127/71 04/10/17 06:00 O2 Sat by Pulse Oximetry (%) 100 04/10/17 09:03 - Other Data Labs, Other Data: CBC, BMP 04/10/17 08:00 04/10/17 08:00
[2017-04-10] MEDS: oxyCODONE HCL 5 MG TABLET PO PRN (21:46)
[2017-04-11] MEDS: PIPERACILLIN/TAZOB 3.375 GM 50 ML IVPB SCH ×3 (01:23→17:40)
[2017-04-11 07:29] LABS: EOSINOPHIL 4.7 % (0-4.5); MCH 28.9 pg (25.7-33.7); MCHC 33.3 g/dl (32.0-35.9); MEAN CELL VOLUME 86.7 fl (80-96); MEAN PLT VOLUME 7.9 fl (7.5-11.1); NEUTROPHILS 60.7 % (42.8-82.8); PLATELET COUNT 334 K/MM3 (134-434); RDW 15.1 % (11.9-15.9); WHITE BLOOD COUNT 7.3 K/mm3 (4.0-10.0)
[2017-04-11 07:46] LABS: ALBUMIN 2.9 g/dl (3.4-5.0); ANION GAP 7 (8-16); CALCIUM 7.8 mg/dL (8.5-10.1); CO2 28 mmol/L (21-32); GLUCOSE,RANDOM 157 mg/dL (74-106); SGOT/AST 11 U/L (15-37); SGPT/ALT 19 U/L (12-78)
[2017-04-11 07:48] LABS: ALK PHOS 79 U/L (45-117); BILIRUBIN,TOTAL 0.4 mg/dL (0.2-1.0); TOT PROT 6.5 g/dl (6.4-8.2)
[2017-04-11 08:07] LABS: SERUM IRON 39 ug/dL (38-169); TOTAL IRON BINDING CAPACITY 228 ug/dL (250-450); UIBC 189 ug/dL (111-343)
[2017-04-11] MEDS ORDERED: PT OWN MED DRAWER 7, Y5N ONE ×3 (08:23→13:01)
[2017-04-11] MEDS: HEPARIN NA (PORCINE) 5,000 UNITS/ML 1ML VIAL SQ SCH ×2 (10:10→21:29)
[2017-04-11] MEDS: amLODIPine BESYLATE 10 MG TABLET (FP) PO SCH (10:11)
[2017-04-11] MEDS: PANTOPRAZOLE 40 MG TABLET (FP) PO SCH (10:11)
[2017-04-11] MEDS: LIPASE/PROTEASE/AMYLASE 36,000 UNIT CAPSULE PO SCH ×3 (10:11→17:40)
[2017-04-11] MEDS: LOSARTAN POTASSIUM 50 MG TABLET (FP) PO SCH (10:11)
--- NOTE | 2017-04-11 11:28 | PN ---
Progress Note (short form) - Note Progress Note: Podiatry F/U: Seen/evaluated at bedside, NAD. Pain controlled, denies F/V/N/C/SOB/CP. S/p R heel debridement with bone biopsy. Afebrile, VSS. JESSICA: R foot: posterior heel diabetic ulcer with strong granular base, no probing to bone, no purulence, no fluctuance, lower leg erythema improving, no soft tissue crepitus. Sutures well coapted along lateral aspect of heel, no dehiscence noted. WBC: 7.3 OR Bone Cx: no growth, reincubated OR Bone Path: no evidence of osteomyelitis (preliminary report) ESR: 65 Imp: 57 year old IDDM M s/p R heel debridement and bone biopsy 1. IV abx per Infectious Disease 2. Continue local wound care 3. Heel offloading measures 4. Glycemic control 5. Waiting for final path report. Shows no osteomyelitis as of now. May need treatment anyway, given chronicity of wound and recurrent cellulitis infections. 6. Will follow closely in wound healing center upon discharge. Kathya Buenrostro DPM
[2017-04-11] MEDS: MUPIROCIN 2% TOPICAL OINTMENT 22 GM TUBE TP SCH ×2 (13:04→21:35)
--- NOTE | 2017-04-11 13:50 | PN ---
Progress Note, Physician History of Present Illness: patient doing well no issues leg improving - Current Medication List Current Medications: Active Medications Acetaminophen (Tylenol -) 650 mg PO Q6H PRN PRN Reason: FEVER OR PAIN Amlodipine Besylate (Norvasc -) 10 mg PO DAILY [facility] Last Admin: 04/11/17 10:11 Dose: 10 mg Fentanyl (Sublimaze Injection -) 25 mcg IVPUSH [id number] PRN PRN Reason: PAIN Stop: 04/12/17 11:36 Heparin Sodium (Porcine) (Heparin -) 5,000 unit SQ BID [facility] Last Admin: 04/11/17 10:10 Dose: 5,000 unit Piperacillin/Tazobactam/Dextrose (Zosyn 3.375gm Ivpb (Premix)) 50 mls @ 100 mls /hr IVPB Q8H-IV CHERYL PRN Reason: Protocol Last Admin: 04/11/17 10:11 Dose: 100 mls/hr Losartan Potassium (Cozaar -) 50 mg PO DAILY [facility] Last Admin: 04/11/17 10:11 Dose: 50 mg Mupirocin (Bactroban 2% Ointment -) 1 applic TP BID [facility] Last Admin: 04/11/17 13:04 Dose: 1 applic Oxycodone HCl (Roxicodone -) 5 mg PO Q4H PRN PRN Reason: PAIN LEVEL 1-5 Last Admin: 04/10/17 21:46 Dose: 5 mg Pancrelipase (Creon Dr 36,000 Units Capsule) 1 cap PO TIDCM [facility] Last Admin: 04/11/17 13:04 Dose: 1 cap Pantoprazole Sodium (Protonix -) 40 mg PO DAILY [facility] Last Admin: 04/11/17 10:11 Dose: 40 mg - Objective Vital Signs: Vital Signs Temperature 98.3 F 04/11/17 06:26 Pulse Rate 84 04/11/17 06:26 Respiratory Rate 17 04/11/17 06:26 Blood Pressure 131/62 04/11/17 06:26 O2 Sat by Pulse Oximetry (%) 100 04/10/17 20:22 Constitutional: Yes: No Distress, Calm Respiratory: Yes: Regular Gastrointestinal: Yes: Normal Bowel Sounds, Soft Musculoskeletal: Yes: Other Extremities: Yes: Other Wound/Incision: Yes: Dressing Dry and Intact Neurological: Yes: Alert, Oriented Psychiatric: Yes: Alert, Oriented Labs: CBC, BMP 04/11/17 06:05 04/11/17 06:05 Assessment/Plan Problem List - Problems (1) Cellulitis of right leg Code(s): L03.115 - CELLULITIS OF RIGHT LOWER LIMB (2) HTN (hypertension) Code(s): I10 - ESSENTIAL (PRIMARY) HYPERTENSION (3) Diabetes mellitus Code(s): E11.9 - TYPE 2 DIABETES MELLITUS WITHOUT COMPLICATIONS Qualifiers: Diabetes mellitus type: type 1 Diabetes mellitus complication status: with skin complications Diabetes mellitus complication detail: with foot ulcer Qualified Code(s): E10.621 - Type 1 diabetes mellitus with foot ulcer ; E10.621 - Type 1 diabetes mellitus with foot ulcer; E10.621 - Type 1 diabetes mellitus with foot ulcer; E10.621 - Type 1 diabetes mellitus with foot ulcer; L97.509 - Non-pressure chronic ulcer of other part of unspecified foot with unspecified severity; L97.509 - Non-pressure chronic ulcer of other part of unspecified foot with unspecified severity; L97.509 - Non-pressure chronic ulcer of other part of unspecified foot with unspecified severity; L97.509 - Non -pressure chronic ulcer of other part of unspecified foot with unspecified severity r/o osteo rt heel ulcer wound infection plan will start o zosyn rest as per primary await for biopsy result
--- NOTE | 2017-04-11 13:53 | PN ---
Progress Note, Physician History of Present Illness: patient doing well no issues leg improving cellulitits resolving - Current Medication List Current Medications: Active Medications Acetaminophen (Tylenol -) 650 mg PO Q6H PRN PRN Reason: FEVER OR PAIN Amlodipine Besylate (Norvasc -) 10 mg PO DAILY [facility] Last Admin: 04/11/17 10:11 Dose: 10 mg Fentanyl (Sublimaze Injection -) 25 mcg IVPUSH [id number] PRN PRN Reason: PAIN Stop: 04/12/17 11:36 Heparin Sodium (Porcine) (Heparin -) 5,000 unit SQ BID [facility] Last Admin: 04/11/17 10:10 Dose: 5,000 unit Piperacillin/Tazobactam/Dextrose (Zosyn 3.375gm Ivpb (Premix)) 50 mls @ 100 mls /hr IVPB Q8H-IV CHERYL PRN Reason: Protocol Last Admin: 04/11/17 10:11 Dose: 100 mls/hr Losartan Potassium (Cozaar -) 50 mg PO DAILY [facility] Last Admin: 04/11/17 10:11 Dose: 50 mg Mupirocin (Bactroban 2% Ointment -) 1 applic TP BID [facility] Last Admin: 04/11/17 13:04 Dose: 1 applic Oxycodone HCl (Roxicodone -) 5 mg PO Q4H PRN PRN Reason: PAIN LEVEL 1-5 Last Admin: 04/10/17 21:46 Dose: 5 mg Pancrelipase (Creon Dr 36,000 Units Capsule) 1 cap PO TIDCM [facility] Last Admin: 04/11/17 13:04 Dose: 1 cap Pantoprazole Sodium (Protonix -) 40 mg PO DAILY [facility] Last Admin: 04/11/17 10:11 Dose: 40 mg - Objective Vital Signs: Vital Signs Temperature 98.3 F 04/11/17 06:26 Pulse Rate 84 04/11/17 06:26 Respiratory Rate 17 04/11/17 06:26 Blood Pressure 131/62 04/11/17 06:26 O2 Sat by Pulse Oximetry (%) 100 04/10/17 20:22 Constitutional: Yes: No Distress, Calm Cardiovascular: Yes: Regular Rate and Rhythm Respiratory: Yes: Regular, CTA Bilaterally Musculoskeletal: Yes: Other Extremities: Yes: Other Wound/Incision: Yes: Dressing Dry and Intact Neurological: Yes: Alert, Oriented Psychiatric: Yes: Alert, Oriented Labs: CBC, BMP 04/11/17 06:05 04/11/17 06:05 Assessment/Plan Problem List - Problems (1) Cellulitis of right leg Code(s): L03.115 - CELLULITIS OF RIGHT LOWER LIMB (2) HTN (hypertension) Code(s): I10 - ESSENTIAL (PRIMARY) HYPERTENSION (3) Diabetes mellitus Code(s): E11.9 - TYPE 2 DIABETES MELLITUS WITHOUT COMPLICATIONS Qualifiers: Diabetes mellitus type: type 1 Diabetes mellitus complication status: with skin complications Diabetes mellitus complication detail: with foot ulcer Qualified Code(s): E10.621 - Type 1 diabetes mellitus with foot ulcer ; E10.621 - Type 1 diabetes mellitus with foot ulcer; E10.621 - Type 1 diabetes mellitus with foot ulcer; E10.621 - Type 1 diabetes mellitus with foot ulcer; L97.509 - Non-pressure chronic ulcer of other part of unspecified foot with unspecified severity; L97.509 - Non-pressure chronic ulcer of other part of unspecified foot with unspecified severity; L97.509 - Non-pressure chronic ulcer of other part of unspecified foot with unspecified severity; L97.509 - Non -pressure chronic ulcer of other part of unspecified foot with unspecified severity r/o osteo rt heel ulcer wound infection plan continue abx for now will follow bone cx cellulitits resolving
--- NOTE | 2017-04-11 14:08 | PN ---
Progress Note, Physician Chief Complaint: Right lower extremity cellulitis History of Present Illness: NAD, in bed seen by Podiatry and ID -on IV abx -bone pathology negative so far -as per Podiatry and ID, may need IV abx anyway due to chronicity of cellulitis and uncontrolled DM seen by endocrinology as well as RD - Current Medication List Current Medications: Active Medications Acetaminophen (Tylenol -) 650 mg PO Q6H PRN PRN Reason: FEVER OR PAIN Amlodipine Besylate (Norvasc -) 10 mg PO DAILY [facility] Last Admin: 04/11/17 10:11 Dose: 10 mg Fentanyl (Sublimaze Injection -) 25 mcg IVPUSH [id number] PRN PRN Reason: PAIN Stop: 04/12/17 11:36 Heparin Sodium (Porcine) (Heparin -) 5,000 unit SQ BID [facility] Last Admin: 04/11/17 10:10 Dose: 5,000 unit Piperacillin/Tazobactam/Dextrose (Zosyn 3.375gm Ivpb (Premix)) 50 mls @ 100 mls /hr IVPB Q8H-IV [facility] PRN Reason: Protocol Last Admin: 04/11/17 10:11 Dose: 100 mls/hr Losartan Potassium (Cozaar -) 50 mg PO DAILY [facility] Last Admin: 04/11/17 10:11 Dose: 50 mg Mupirocin (Bactroban 2% Ointment -) 1 applic TP BID [facility] Last Admin: 04/11/17 13:04 Dose: 1 applic Oxycodone HCl (Roxicodone -) 5 mg PO Q4H PRN PRN Reason: PAIN LEVEL 1-5 Last Admin: 04/10/17 21:46 Dose: 5 mg Pancrelipase (Creon Dr 36,000 Units Capsule) 1 cap PO TIDCM [facility] Last Admin: 04/11/17 13:04 Dose: 1 cap Pantoprazole Sodium (Protonix -) 40 mg PO DAILY [facility] Last Admin: 04/11/17 10:11 Dose: 40 mg - Objective Vital Signs: Vital Signs Temperature 98.3 F 04/11/17 06:26 Pulse Rate 84 04/11/17 06:26 Respiratory Rate 17 04/11/17 06:26 Blood Pressure 131/62 04/11/17 06:26 O2 Sat by Pulse Oximetry (%) 100 04/10/17 20:22 Constitutional: Yes: Well Nourished, No Distress, Calm Cardiovascular: Yes: Regular Rate and Rhythm Respiratory: Yes: Regular Wound/Incision: Yes: Dressing Dry and Intact (Right foot) Neurological: Yes: Alert, Oriented Psychiatric: Yes: Alert, Oriented Labs: CBC, BMP 04/11/17 06:05 04/11/17 06:05 Problem List - Problems (1) Cellulitis of right leg Assessment/Plan: -seen by ID and Podiatry -bone pathology pending -IV abx Code(s): L03.115 - CELLULITIS OF RIGHT LOWER LIMB (2) Diabetic foot ulcer Assessment/Plan: -local wound care -seen by ID -IV abx -offloading Code(s): E11.621 - TYPE 2 DIABETES MELLITUS WITH FOOT ULCER L97.509 - NON-PRESSURE CHRONIC ULCER OTH PRT UNSP FOOT W UNSP SEVERITY Qualifiers: Diabetic foot ulcer location: heel Diabetes mellitus type: type 1 Laterality: right Non-pressure ulcer stage: with necrosis of muscle Qualified Code(s): E10.621 - Type 1 diabetes mellitus with foot ulcer; E10.621 - Type 1 diabetes mellitus with foot ulcer; E10.621 - Type 1 diabetes mellitus with foot ulcer; E10.621 - Type 1 diabetes mellitus with foot ulcer; L97.411 - Non-pressure chronic ulcer of right heel and midfoot limited to breakdown of skin; L97.411 - Non-pressure chronic ulcer of right heel and midfoot limited to breakdown of skin; L97.411 - Non-pressure chronic ulcer of right heel and midfoot limited to breakdown of skin; L97.411 - Non-pressure chronic ulcer of right heel and midfoot limited to breakdown of skin (3) HTN (hypertension) Assessment/Plan: -low sodium/diabetic diet -better controlled on norvasc and cozaar -Cardiology consult -monitor renal function and Potassium Code(s): I10 - ESSENTIAL (PRIMARY) HYPERTENSION (4) Diabetes mellitus Assessment/Plan: -last HgA1C at 9.1 -seen by endocrinology -has insulin pump that is managed by endocrinology -low sodium/diabetic diet -seen by RD Code(s): E11.9 - TYPE 2 DIABETES MELLITUS WITHOUT COMPLICATIONS Qualifiers: Diabetes mellitus type: type 1 Diabetes mellitus complication status: with skin complications Diabetes mellitus complication detail: with foot ulcer Qualified Code(s): E10.621 - Type 1 diabetes mellitus with foot ulcer ; E10.621 - Type 1 diabetes mellitus with foot ulcer; E10.621 - Type 1 diabetes mellitus with foot ulcer; E10.621 - Type 1 diabetes mellitus with foot ulcer; L97.509 - Non-pressure chronic ulcer of other part of unspecified foot with unspecified severity; L97.509 - Non-pressure chronic ulcer of other part of unspecified foot with unspecified severity; L97.509 - Non-pressure chronic ulcer of other part of unspecified foot with unspecified severity; L97.509 - Non -pressure chronic ulcer of other part of unspecified foot with unspecified severity (5) Anemia Assessment/Plan: -likely anemia of chronic disease -checked iron profile, b12, FA-normal -stool guaiac pending Code(s): D64.9 - ANEMIA, UNSPECIFIED Assessment/Plan see problem list
[2017-04-11] MEDS: oxyCODONE HCL 5 MG TABLET PO PRN (14:35)
--- NOTE | 2017-04-11 14:40 | PN ---
Progress Note, Physician History of Present Illness: Afebrile, right foot pain adequately controlled. - Current Medication List Current Medications: Active Medications Acetaminophen (Tylenol -) 650 mg PO Q6H PRN PRN Reason: FEVER OR PAIN Last Admin: 04/11/17 14:32 Dose: 650 mg Amlodipine Besylate (Norvasc -) 10 mg PO DAILY [facility] Last Admin: 04/11/17 10:11 Dose: 10 mg Fentanyl (Sublimaze Injection -) 25 mcg IVPUSH [id number] PRN PRN Reason: PAIN Stop: 04/12/17 11:36 Heparin Sodium (Porcine) (Heparin -) 5,000 unit SQ BID [facility] Last Admin: 04/11/17 10:10 Dose: 5,000 unit Piperacillin/Tazobactam/Dextrose (Zosyn 3.375gm Ivpb (Premix)) 50 mls @ 100 mls /hr IVPB Q8H-IV [facility] PRN Reason: Protocol Last Admin: 04/11/17 10:11 Dose: 100 mls/hr Losartan Potassium (Cozaar -) 50 mg PO DAILY [facility] Last Admin: 04/11/17 10:11 Dose: 50 mg Mupirocin (Bactroban 2% Ointment -) 1 applic TP BID [facility] Last Admin: 04/11/17 13:04 Dose: 1 applic Oxycodone HCl (Roxicodone -) 5 mg PO Q4H PRN PRN Reason: PAIN LEVEL 1-5 Last Admin: 04/11/17 14:35 Dose: 5 mg Pancrelipase (Creon Dr 36,000 Units Capsule) 1 cap PO TIDCM [facility] Last Admin: 04/11/17 13:04 Dose: 1 cap Pantoprazole Sodium (Protonix -) 40 mg PO DAILY [facility] Last Admin: 04/11/17 10:11 Dose: 40 mg - Objective Vital Signs: Vital Signs Temperature 98.3 F 04/11/17 06:26 Pulse Rate 84 04/11/17 06:26 Respiratory Rate 17 04/11/17 06:26 Blood Pressure 131/62 04/11/17 06:26 O2 Sat by Pulse Oximetry (%) 100 04/10/17 20:22 Constitutional: Yes: No Distress, Calm Neck: Yes: Supple Cardiovascular: Yes: Regular Rate and Rhythm Respiratory: Yes: Regular, CTA Bilaterally Gastrointestinal: Yes: Normal Bowel Sounds, Soft, Abdomen, Obese Edema: No Wound/Incision: Yes: Dressing Dry and Intact Labs: CBC, BMP 04/11/17 06:05 04/11/17 06:05 Problem List - Problems (1) Anemia Code(s): D64.9 - ANEMIA, UNSPECIFIED Qualifiers: Anemia type: unspecified type Qualified Code(s): D64.9 - Anemia, unspecified; D64.9 - Anemia, unspecified (2) Cellulitis Code(s): L03.90 - CELLULITIS, UNSPECIFIED Qualifiers: Site of cellulitis: extremity Site of cellulitis of extremity: lower extremity Laterality: right Qualified Code(s): L03.115 - Cellulitis of right lower limb; L03.115 - Cellulitis of right lower limb (3) Diabetic foot ulcer Code(s): E11.621 - TYPE 2 DIABETES MELLITUS WITH FOOT ULCER L97.509 - NON-PRESSURE CHRONIC ULCER OTH PRT UNSP FOOT W UNSP SEVERITY Qualifiers: Diabetic foot ulcer location: heel Diabetes mellitus type: type 1 Laterality: right Non-pressure ulcer stage: with necrosis of muscle Qualified Code(s): E10.621 - Type 1 diabetes mellitus with foot ulcer; E10.621 - Type 1 diabetes mellitus with foot ulcer; E10.621 - Type 1 diabetes mellitus with foot ulcer; E10.621 - Type 1 diabetes mellitus with foot ulcer; L97.411 - Non-pressure chronic ulcer of right heel and midfoot limited to breakdown of skin; L97.411 - Non-pressure chronic ulcer of right heel and midfoot limited to breakdown of skin; L97.411 - Non-pressure chronic ulcer of right heel and midfoot limited to breakdown of skin; L97.411 - Non-pressure chronic ulcer of right heel and midfoot limited to breakdown of skin (4) HTN (hypertension) Code(s): I10 - ESSENTIAL (PRIMARY) HYPERTENSION (5) Diabetes mellitus Code(s): E11.9 - TYPE 2 DIABETES MELLITUS WITHOUT COMPLICATIONS Qualifiers: Diabetes mellitus type: type 1 Diabetes mellitus complication status: with skin complications Diabetes mellitus complication detail: with foot ulcer Qualified Code(s): E10.621 - Type 1 diabetes mellitus with foot ulcer ; E10.621 - Type 1 diabetes mellitus with foot ulcer; E10.621 - Type 1 diabetes mellitus with foot ulcer; E10.621 - Type 1 diabetes mellitus with foot ulcer; L97.509 - Non-pressure chronic ulcer of other part of unspecified foot with unspecified severity; L97.509 - Non-pressure chronic ulcer of other part of unspecified foot with unspecified severity; L97.509 - Non-pressure chronic ulcer of other part of unspecified foot with unspecified severity; L97.509 - Non -pressure chronic ulcer of other part of unspecified foot with unspecified severity (6) Amputated toe of left foot Code(s): Z89.422 - ACQUIRED ABSENCE OF OTHER LEFT TOE(S) Assessment/Plan 1. Right heel ulcer and cellulitis post debridement and bone biopsy 2. PAD s/p left toe amputation 3. Type 2 DM 4. HTN/HCVD P:1. Complete abx course, wound care, f/u bone pathology 2. Continue Norvasc 10 qd, losartan 50 qd 3. DVT and GI prophylaxis I
[2017-04-12] MEDS: PIPERACILLIN/TAZOB 3.375 GM 50 ML IVPB SCH ×3 (01:43→17:09)
[2017-04-12] MEDS ORDERED: PT OWN MED DRAWER 7, Y5N ONE (07:51)
[2017-04-12] MEDS: LIPASE/PROTEASE/AMYLASE 36,000 UNIT CAPSULE PO SCH ×3 (08:09→17:10)
--- NOTE | 2017-04-12 09:48 | PN ---
Progress Note, Physician Chief Complaint: Right lower extremity cellulitis History of Present Illness: NAD, in bed seen by Podiatry and ID -on IV abx -bone pathology negative for osteo -as per Podiatry and ID, may need IV abx anyway due to chronicity of cellulitis and uncontrolled DM seen by endocrinology as well as RD - Current Medication List Current Medications: Active Medications Acetaminophen (Tylenol -) 650 mg PO Q6H PRN PRN Reason: FEVER OR PAIN Last Admin: 04/11/17 14:32 Dose: 650 mg Amlodipine Besylate (Norvasc -) 10 mg PO DAILY [facility] Last Admin: 04/11/17 10:11 Dose: 10 mg Fentanyl (Sublimaze Injection -) 25 mcg IVPUSH [id number] PRN PRN Reason: PAIN Stop: 04/12/17 11:36 Heparin Sodium (Porcine) (Heparin -) 5,000 unit SQ BID [facility] Last Admin: 04/11/17 21:29 Dose: 5,000 unit Piperacillin/Tazobactam/Dextrose (Zosyn 3.375gm Ivpb (Premix)) 50 mls @ 100 mls /hr IVPB Q8H-IV [facility] PRN Reason: Protocol Last Admin: 04/12/17 01:43 Dose: 100 mls/hr Losartan Potassium (Cozaar -) 50 mg PO DAILY [facility] Last Admin: 04/11/17 10:11 Dose: 50 mg Mupirocin (Bactroban 2% Ointment -) 1 applic TP BID [facility] Last Admin: 04/11/17 21:35 Dose: 1 applic Oxycodone HCl (Roxicodone -) 5 mg PO Q4H PRN PRN Reason: PAIN LEVEL 1-5 Last Admin: 04/11/17 14:35 Dose: 5 mg Pancrelipase (Creon Dr 36,000 Units Capsule) 1 cap PO TIDCM [facility] Last Admin: 04/12/17 08:09 Dose: 1 cap Pantoprazole Sodium (Protonix -) 40 mg PO DAILY [facility] Last Admin: 04/11/17 10:11 Dose: 40 mg - Objective Vital Signs: Vital Signs Temperature 98.1 F 04/12/17 06:34 Pulse Rate 88 04/12/17 06:34 Respiratory Rate 19 04/12/17 06:34 Blood Pressure 144/75 04/12/17 06:34 O2 Sat by Pulse Oximetry (%) 98 04/11/17 22:00 Constitutional: Yes: Well Nourished, No Distress, Calm Cardiovascular: Yes: Regular Rate and Rhythm Respiratory: Yes: Regular Gastrointestinal: Yes: Normal Bowel Sounds Edema: No Peripheral Pulses WNL: Yes Wound/Incision: Yes: Dressing Dry and Intact Neurological: Yes: Alert, Oriented Psychiatric: Yes: Alert, Oriented Labs: CBC, BMP 04/11/17 06:05 04/11/17 06:05 Problem List - Problems (1) Cellulitis of right leg Assessment/Plan: -seen by ID and Podiatry -bone pathology negative for osteo -IV abx as per ID Code(s): L03.115 - CELLULITIS OF RIGHT LOWER LIMB (2) Diabetic foot ulcer Assessment/Plan: -local wound care -seen by ID -IV abx -offloading Code(s): E11.621 - TYPE 2 DIABETES MELLITUS WITH FOOT ULCER L97.509 - NON-PRESSURE CHRONIC ULCER OTH PRT UNSP FOOT W UNSP SEVERITY Qualifiers: Diabetic foot ulcer location: heel Diabetes mellitus type: type 1 Laterality: right Non-pressure ulcer stage: with necrosis of muscle Qualified Code(s): E10.621 - Type 1 diabetes mellitus with foot ulcer; E10.621 - Type 1 diabetes mellitus with foot ulcer; E10.621 - Type 1 diabetes mellitus with foot ulcer; E10.621 - Type 1 diabetes mellitus with foot ulcer; L97.411 - Non-pressure chronic ulcer of right heel and midfoot limited to breakdown of skin; L97.411 - Non-pressure chronic ulcer of right heel and midfoot limited to breakdown of skin; L97.411 - Non-pressure chronic ulcer of right heel and midfoot limited to breakdown of skin; L97.411 - Non-pressure chronic ulcer of right heel and midfoot limited to breakdown of skin (3) HTN (hypertension) Assessment/Plan: -low sodium/diabetic diet -better controlled on norvasc and cozaar -Cardiology consult -monitor renal function and Potassium Code(s): I10 - ESSENTIAL (PRIMARY) HYPERTENSION (4) Diabetes mellitus Assessment/Plan: -last HgA1C at 9.1 -seen by endocrinology -has insulin pump that is managed by endocrinology -low sodium/diabetic diet -seen by RD Code(s): E11.9 - TYPE 2 DIABETES MELLITUS WITHOUT COMPLICATIONS Qualifiers: Diabetes mellitus type: type 1 Diabetes mellitus complication status: with skin complications Diabetes mellitus complication detail: with foot ulcer Qualified Code(s): E10.621 - Type 1 diabetes mellitus with foot ulcer ; E10.621 - Type 1 diabetes mellitus with foot ulcer; E10.621 - Type 1 diabetes mellitus with foot ulcer; E10.621 - Type 1 diabetes mellitus with foot ulcer; L97.509 - Non-pressure chronic ulcer of other part of unspecified foot with unspecified severity; L97.509 - Non-pressure chronic ulcer of other part of unspecified foot with unspecified severity; L97.509 - Non-pressure chronic ulcer of other part of unspecified foot with unspecified severity; L97.509 - Non -pressure chronic ulcer of other part of unspecified foot with unspecified severity (5) Anemia Assessment/Plan: -likely anemia of chronic disease -checked iron profile, b12, FA-normal -stool guaiac negative Code(s): D64.9 - ANEMIA, UNSPECIFIED Qualifiers: Anemia type: unspecified type Qualified Code(s): D64.9 - Anemia, unspecified; D64.9 - Anemia, unspecified Assessment/Plan see problem list
[2017-04-12] MEDS: amLODIPine BESYLATE 10 MG TABLET (FP) PO SCH (10:36)
[2017-04-12] MEDS: PANTOPRAZOLE 40 MG TABLET (FP) PO SCH (10:36)
[2017-04-12] MEDS: LOSARTAN POTASSIUM 50 MG TABLET (FP) PO SCH (10:36)
[2017-04-12] MEDS: MUPIROCIN 2% TOPICAL OINTMENT 22 GM TUBE TP SCH ×2 (10:37→22:13)
[2017-04-12] MEDS: HEPARIN NA (PORCINE) 5,000 UNITS/ML 1ML VIAL SQ SCH ×2 (10:37→22:12)
--- NOTE | 2017-04-12 10:52 | PN ---
Progress Note, Physician History of Present Illness: Afebrile, right foot pain adequately controlled. - Current Medication List Current Medications: Active Medications Acetaminophen (Tylenol -) 650 mg PO Q6H PRN PRN Reason: FEVER OR PAIN Last Admin: 04/11/17 14:32 Dose: 650 mg Amlodipine Besylate (Norvasc -) 10 mg PO DAILY [facility] Last Admin: 04/12/17 10:36 Dose: 10 mg Fentanyl (Sublimaze Injection -) 25 mcg IVPUSH [id number] PRN PRN Reason: PAIN Stop: 04/12/17 11:36 Heparin Sodium (Porcine) (Heparin -) 5,000 unit SQ BID [facility] Last Admin: 04/12/17 10:37 Dose: 5,000 unit Piperacillin/Tazobactam/Dextrose (Zosyn 3.375gm Ivpb (Premix)) 50 mls @ 100 mls /hr IVPB Q8H-IV [facility] PRN Reason: Protocol Last Admin: 04/12/17 10:36 Dose: 100 mls/hr Losartan Potassium (Cozaar -) 50 mg PO DAILY [facility] Last Admin: 04/12/17 10:36 Dose: 50 mg Mupirocin (Bactroban 2% Ointment -) 1 applic TP BID [facility] Last Admin: 04/12/17 10:37 Dose: 1 applic Oxycodone HCl (Roxicodone -) 5 mg PO Q4H PRN PRN Reason: PAIN LEVEL 1-5 Last Admin: 04/11/17 14:35 Dose: 5 mg Pancrelipase (Creon Dr 36,000 Units Capsule) 1 cap PO TIDCM [facility] Last Admin: 04/12/17 08:09 Dose: 1 cap Pantoprazole Sodium (Protonix -) 40 mg PO DAILY [facility] Last Admin: 04/12/17 10:36 Dose: 40 mg - Objective Vital Signs: Vital Signs Temperature 98.1 F 04/12/17 06:34 Pulse Rate 88 04/12/17 06:34 Respiratory Rate 19 04/12/17 06:34 Blood Pressure 144/75 04/12/17 06:34 O2 Sat by Pulse Oximetry (%) 98 04/11/17 22:00 Constitutional: Yes: No Distress, Calm Neck: Yes: Supple Cardiovascular: Yes: Regular Rate and Rhythm Respiratory: Yes: Regular, CTA Bilaterally Gastrointestinal: Yes: Normal Bowel Sounds, Soft Edema: No Labs: CBC, BMP 04/11/17 06:05 04/11/17 06:05 Problem List - Problems (1) Anemia Code(s): D64.9 - ANEMIA, UNSPECIFIED Qualifiers: Anemia type: unspecified type Qualified Code(s): D64.9 - Anemia, unspecified; D64.9 - Anemia, unspecified (2) Cellulitis Code(s): L03.90 - CELLULITIS, UNSPECIFIED Qualifiers: Site of cellulitis: extremity Site of cellulitis of extremity: lower extremity Laterality: right Qualified Code(s): L03.115 - Cellulitis of right lower limb; L03.115 - Cellulitis of right lower limb (3) Diabetic foot ulcer Code(s): E11.621 - TYPE 2 DIABETES MELLITUS WITH FOOT ULCER L97.509 - NON-PRESSURE CHRONIC ULCER OTH PRT UNSP FOOT W UNSP SEVERITY Qualifiers: Diabetic foot ulcer location: heel Diabetes mellitus type: type 1 Laterality: right Non-pressure ulcer stage: with necrosis of muscle Qualified Code(s): E10.621 - Type 1 diabetes mellitus with foot ulcer; E10.621 - Type 1 diabetes mellitus with foot ulcer; E10.621 - Type 1 diabetes mellitus with foot ulcer; E10.621 - Type 1 diabetes mellitus with foot ulcer; L97.411 - Non-pressure chronic ulcer of right heel and midfoot limited to breakdown of skin; L97.411 - Non-pressure chronic ulcer of right heel and midfoot limited to breakdown of skin; L97.411 - Non-pressure chronic ulcer of right heel and midfoot limited to breakdown of skin; L97.411 - Non-pressure chronic ulcer of right heel and midfoot limited to breakdown of skin (4) HTN (hypertension) Code(s): I10 - ESSENTIAL (PRIMARY) HYPERTENSION (5) Diabetes mellitus Code(s): E11.9 - TYPE 2 DIABETES MELLITUS WITHOUT COMPLICATIONS Qualifiers: Diabetes mellitus type: type 1 Diabetes mellitus complication status: with skin complications Diabetes mellitus complication detail: with foot ulcer Qualified Code(s): E10.621 - Type 1 diabetes mellitus with foot ulcer ; E10.621 - Type 1 diabetes mellitus with foot ulcer; E10.621 - Type 1 diabetes mellitus with foot ulcer; E10.621 - Type 1 diabetes mellitus with foot ulcer; L97.509 - Non-pressure chronic ulcer of other part of unspecified foot with unspecified severity; L97.509 - Non-pressure chronic ulcer of other part of unspecified foot with unspecified severity; L97.509 - Non-pressure chronic ulcer of other part of unspecified foot with unspecified severity; L97.509 - Non -pressure chronic ulcer of other part of unspecified foot with unspecified severity (6) Amputated toe of left foot Code(s): Z89.422 - ACQUIRED ABSENCE OF OTHER LEFT TOE(S) Assessment/Plan 1. Right heel ulcer and cellulitis post debridement and bone biopsy 2. PAD s/p left toe amputation 3. Type 2 DM 4. HTN/HCVD P:1. Complete abx course, wound care, bone pathology neg for osteomyelitis 2. Continue Norvasc 10 qd, losartan 50 qd 3. DVT and GI prophylaxis
[2017-04-12] MEDS: oxyCODONE HCL 5 MG TABLET PO PRN ×2 (13:03→22:11)
--- NOTE | 2017-04-12 14:50 | PN ---
Progress Note, Physician History of Present Illness: patient doing well no issues leg improving cellulitits resolving cx results noted - Current Medication List Current Medications: Active Medications Acetaminophen (Tylenol -) 650 mg PO Q6H PRN PRN Reason: FEVER OR PAIN Last Admin: 04/11/17 14:32 Dose: 650 mg Amlodipine Besylate (Norvasc -) 10 mg PO DAILY [facility] Last Admin: 04/12/17 10:36 Dose: 10 mg Heparin Sodium (Porcine) (Heparin -) 5,000 unit SQ BID [facility] Last Admin: 04/12/17 10:37 Dose: 5,000 unit Piperacillin/Tazobactam/Dextrose (Zosyn 3.375gm Ivpb (Premix)) 50 mls @ 100 mls /hr IVPB Q8H-IV [facility] PRN Reason: Protocol Last Admin: 04/12/17 10:36 Dose: 100 mls/hr Losartan Potassium (Cozaar -) 50 mg PO DAILY [facility] Last Admin: 04/12/17 10:36 Dose: 50 mg Mupirocin (Bactroban 2% Ointment -) 1 applic TP BID [facility] Last Admin: 04/12/17 10:37 Dose: 1 applic Oxycodone HCl (Roxicodone -) 5 mg PO Q6H PRN PRN Reason: PAIN Last Admin: 04/12/17 13:03 Dose: 5 mg Pancrelipase (Creon Dr 36,000 Units Capsule) 1 cap PO TIDCM [facility] Last Admin: 04/12/17 13:03 Dose: 1 cap Pantoprazole Sodium (Protonix -) 40 mg PO DAILY [facility] Last Admin: 04/12/17 10:36 Dose: 40 mg - Objective Vital Signs: Vital Signs Temperature 98.1 F 04/12/17 14:00 Pulse Rate 82 04/12/17 14:00 Respiratory Rate 22 04/12/17 14:00 Blood Pressure 136/54 04/12/17 14:00 O2 Sat by Pulse Oximetry (%) 98 04/11/17 22:00 Constitutional: Yes: No Distress, Calm Cardiovascular: Yes: Regular Rate and Rhythm Respiratory: Yes: Regular, CTA Bilaterally Gastrointestinal: Yes: Normal Bowel Sounds, Soft Musculoskeletal: Yes: WNL Extremities: Yes: Other Wound/Incision: Yes: Dressing Dry and Intact Neurological: Yes: Alert, Oriented Psychiatric: Yes: Alert, Oriented Labs: CBC, BMP 10/18/17 06:05 04/11/17 06:05 Assessment/Plan Problem List - Problems (1) Cellulitis of right leg Code(s): L03.115 - CELLULITIS OF RIGHT LOWER LIMB (2) HTN (hypertension) Code(s): I10 - ESSENTIAL (PRIMARY) HYPERTENSION (3) Diabetes mellitus Code(s): E11.9 - TYPE 2 DIABETES MELLITUS WITHOUT COMPLICATIONS Qualifiers: Diabetes mellitus type: type 1 Diabetes mellitus complication status: with skin complications Diabetes mellitus complication detail: with foot ulcer Qualified Code(s): E10.621 - Type 1 diabetes mellitus with foot ulcer ; E10.621 - Type 1 diabetes mellitus with foot ulcer; E10.621 - Type 1 diabetes mellitus with foot ulcer; E10.621 - Type 1 diabetes mellitus with foot ulcer; L97.509 - Non-pressure chronic ulcer of other part of unspecified foot with unspecified severity; L97.509 - Non-pressure chronic ulcer of other part of unspecified foot with unspecified severity; L97.509 - Non-pressure chronic ulcer of other part of unspecified foot with unspecified severity; L97.509 - Non -pressure chronic ulcer of other part of unspecified foot with unspecified severity r/o osteo rt heel ulcer wound infection plan will switch to oral abx tomorrow after seeing the esr and crp depending on that will decide the choice of abx
[2017-04-13] MEDS: PIPERACILLIN/TAZOB 3.375 GM 50 ML IVPB SCH ×2 (01:14→10:17)
--- NOTE | 2017-04-13 01:38 | PN ---
Progress Note, Physician Chief Complaint: feels better as wound is improving History of Present Illness: 57 year old IDDM w, presented to [facility] with right lower extremity cellulitis, failed outpatient therapy. Patient has been on PO bactrim for chronic suppression therapy as prescribed by Infectious Disease. Does have history of chronic osteomyelitis, treated with course of IV abx for approximately 6 weeks in 05/10. Does report increased redness/swelling of 3 days duration. has improved with abx and wound care,blood sugars are improving with new dose of insulin basal rates - Current Medication List Current Medications: Active Medications Acetaminophen (Tylenol -) 650 mg PO Q6H PRN PRN Reason: FEVER OR PAIN Last Admin: 04/11/17 14:32 Dose: 650 mg Amlodipine Besylate (Norvasc -) 10 mg PO DAILY [facility] Last Admin: 04/12/17 10:36 Dose: 10 mg Heparin Sodium (Porcine) (Heparin -) 5,000 unit SQ BID [facility] Last Admin: 04/12/17 22:12 Dose: 5,000 unit Piperacillin/Tazobactam/Dextrose (Zosyn 3.375gm Ivpb (Premix)) 50 mls @ 100 mls /hr IVPB Q8H-IV CHERYL PRN Reason: Protocol Last Admin: 04/13/17 01:14 Dose: 100 mls/hr Losartan Potassium (Cozaar -) 50 mg PO DAILY [facility] Last Admin: 04/12/17 10:36 Dose: 50 mg Mupirocin (Bactroban 2% Ointment -) 1 applic TP BID [facility] Last Admin: 04/12/17 22:13 Dose: 1 applic Oxycodone HCl (Roxicodone -) 5 mg PO Q6H PRN PRN Reason: PAIN Last Admin: 04/12/17 22:11 Dose: 5 mg Pancrelipase (Creon Dr 36,000 Units Capsule) 1 cap PO TIDCM [facility] Last Admin: 04/12/17 17:10 Dose: 1 cap Pantoprazole Sodium (Protonix -) 40 mg PO DAILY [facility] Last Admin: 04/12/17 10:36 Dose: 40 mg - Objective Vital Signs: Vital Signs Temperature 98.9 F 04/13/17 01:26 Pulse Rate 74 04/13/17 01:26 Respiratory Rate 18 04/13/17 01:26 Blood Pressure 138/82 04/13/17 01:26 O2 Sat by Pulse Oximetry (%) 98 04/11/17 22:00 Constitutional: Yes: Well Nourished, Calm Eyes: Yes: EOM Intact HENT: Yes: Normocephalic Neck: Yes: Trachea Midline Cardiovascular: Yes: Regular Rate and Rhythm Respiratory: Yes: CTA Bilaterally Gastrointestinal: Yes: Normal Bowel Sounds ...Rectal Exam: Yes: Deferred Genitourinary: Yes: WNL Extremities: Yes: Delayed Capillary Refill Edema: Yes Edema: LLE: 1+, RLE: 1+ Integumentary: Yes: Erythema, Incision, Onychomycosis, Venous Stasis Changes Wound/Incision: Yes: Clean/Dry, Well Approximated Neurological: Yes: Alert, Oriented Labs: CBC, BMP 04/11/17 06:05 04/11/17 06:05 Problem List - Problems (1) Cellulitis of right leg Code(s): L03.115 - CELLULITIS OF RIGHT LOWER LIMB (2) Cellulitis Code(s): L03.90 - CELLULITIS, UNSPECIFIED Qualifiers: Site of cellulitis: extremity Site of cellulitis of extremity: lower extremity Laterality: right Qualified Code(s): L03.115 - Cellulitis of right lower limb; L03.115 - Cellulitis of right lower limb (3) Osteomyelitis of foot Code(s): M86.9 - OSTEOMYELITIS, UNSPECIFIED (4) Diabetes mellitus Code(s): E11.9 - TYPE 2 DIABETES MELLITUS WITHOUT COMPLICATIONS Qualifiers: Diabetes mellitus type: type 1 Diabetes mellitus complication status: with skin complications Diabetes mellitus complication detail: with foot ulcer Qualified Code(s): E10.621 - Type 1 diabetes mellitus with foot ulcer ; E10.621 - Type 1 diabetes mellitus with foot ulcer; E10.621 - Type 1 diabetes mellitus with foot ulcer; E10.621 - Type 1 diabetes mellitus with foot ulcer; L97.509 - Non-pressure chronic ulcer of other part of unspecified foot with unspecified severity; L97.509 - Non-pressure chronic ulcer of other part of unspecified foot with unspecified severity; L97.509 - Non-pressure chronic ulcer of other part of unspecified foot with unspecified severity; L97.509 - Non -pressure chronic ulcer of other part of unspecified foot with unspecified severity Assessment/Plan Current Active Problems Amputated toe of left foot (Acute) Anemia (Acute) Cellulitis of right leg (Acute) Laboratory Results - last 24 hr 04/12/17 04/12/17 04/12/17 05:53 08:54 11:23 POC Glucometer 253 150 Stool Occult Blood Negative 04/12/17 04/12/17 16:59 22:08 POC Glucometer 191 147 Stool Occult Blood plan: basal bolus with novolog insulin in pump br 1.4 u/hr to have pump sensor dexcom as outpatient
[2017-04-13] MEDS ORDERED: PT OWN MED DRAWER 7, Y5N ONE ×2 (08:05→10:06)
[2017-04-13] MEDS: LIPASE/PROTEASE/AMYLASE 36,000 UNIT CAPSULE PO SCH ×2 (08:11→11:52)
--- NOTE | 2017-04-13 08:38 | PN ---
Progress Note (short form) - Note Progress Note: Podiatry F/U: Seen/evaluated at bedside, NAD. pain controlled, denies F/V/N/C/SOB/CP. S/p R heel debridement with bone biopsy. Afebrile, VSS. JESSICA: R foot: posterior heel diabetic ulcer with strong granular base, no purulence, no fluctuance, no periwound erythema, no ascending cellulitis, no signs of active infection. Minimal tenderness to palpation. Fixed erythema improving. Bone Cx/Bx: no organisms, negative for path Imp: 57 year old IDDM M with R heel diabetic ulcer, cellulitis 1. Abx per Infectious Disease 2. Bactroban QOD R heel. Patient's performs dressing changes at home. 3. Advised patient on offloading measures to the heel. 4. Glycemic control. 5. F/u in wound healing center this Sunday. Kathya Buenrostro DPM
[2017-04-13] MEDS: amLODIPine BESYLATE 10 MG TABLET (FP) PO SCH (10:17)
[2017-04-13] MEDS: PANTOPRAZOLE 40 MG TABLET (FP) PO SCH (10:17)
[2017-04-13] MEDS: HEPARIN NA (PORCINE) 5,000 UNITS/ML 1ML VIAL SQ SCH (10:17)
[2017-04-13] MEDS: LOSARTAN POTASSIUM 50 MG TABLET (FP) PO SCH (10:17)
[2017-04-13] MEDS: MUPIROCIN 2% TOPICAL OINTMENT 22 GM TUBE TP SCH (10:17)
[2017-04-13] MEDS: oxyCODONE HCL 5 MG TABLET PO PRN (10:22)
--- NOTE | 2017-04-13 10:38 | PN ---
Progress Note, Physician History of Present Illness: Afebrile, right foot pain adequately controlled. - Current Medication List Current Medications: Active Medications Acetaminophen (Tylenol -) 650 mg PO Q6H PRN PRN Reason: FEVER OR PAIN Last Admin: 04/11/17 14:32 Dose: 650 mg Amlodipine Besylate (Norvasc -) 10 mg PO DAILY [facility] Last Admin: 04/13/17 10:17 Dose: 10 mg Heparin Sodium (Porcine) (Heparin -) 5,000 unit SQ BID [facility] Last Admin: 04/13/17 10:17 Dose: Not Given Piperacillin/Tazobactam/Dextrose (Zosyn 3.375gm Ivpb (Premix)) 50 mls @ 100 mls /hr IVPB Q8H-IV CHERYL PRN Reason: Protocol Last Admin: 04/13/17 10:17 Dose: 100 mls/hr Losartan Potassium (Cozaar -) 50 mg PO DAILY [facility] Last Admin: 04/13/17 10:17 Dose: 50 mg Mupirocin (Bactroban 2% Ointment -) 1 applic TP BID [facility] Last Admin: 04/13/17 10:17 Dose: Not Given Oxycodone HCl (Roxicodone -) 5 mg PO Q6H PRN PRN Reason: PAIN Last Admin: 04/13/17 10:22 Dose: 5 mg Pancrelipase (Creon Dr 36,000 Units Capsule) 1 cap PO TIDCM [facility] Last Admin: 04/13/17 08:11 Dose: 1 cap Pantoprazole Sodium (Protonix -) 40 mg PO DAILY [facility] Last Admin: 04/13/17 10:17 Dose: 40 mg - Objective Vital Signs: Vital Signs Temperature 98.0 F 04/13/17 06:46 Pulse Rate 81 04/13/17 06:46 Respiratory Rate 20 04/13/17 06:46 Blood Pressure 140/67 04/13/17 06:46 O2 Sat by Pulse Oximetry (%) 98 04/11/17 22:00 Constitutional: Yes: No Distress, Calm Neck: Yes: Supple Cardiovascular: Yes: Regular Rate and Rhythm Respiratory: Yes: Regular, CTA Bilaterally Gastrointestinal: Yes: Normal Bowel Sounds, Soft Extremities: Yes: Amputation (left toe) Edema: No Labs: CBC, BMP 04/11/17 06:05 04/11/17 06:05 Problem List - Problems (1) Anemia Code(s): D64.9 - ANEMIA, UNSPECIFIED Qualifiers: Anemia type: unspecified type Qualified Code(s): D64.9 - Anemia, unspecified; D64.9 - Anemia, unspecified (2) Cellulitis Code(s): L03.90 - CELLULITIS, UNSPECIFIED Qualifiers: Site of cellulitis: extremity Site of cellulitis of extremity: lower extremity Laterality: right Qualified Code(s): L03.115 - Cellulitis of right lower limb; L03.115 - Cellulitis of right lower limb (3) Diabetic foot ulcer Code(s): E11.621 - TYPE 2 DIABETES MELLITUS WITH FOOT ULCER L97.509 - NON-PRESSURE CHRONIC ULCER OTH PRT UNSP FOOT W UNSP SEVERITY Qualifiers: Diabetic foot ulcer location: heel Diabetes mellitus type: type 1 Laterality: right Non-pressure ulcer stage: with necrosis of muscle Qualified Code(s): E10.621 - Type 1 diabetes mellitus with foot ulcer; E10.621 - Type 1 diabetes mellitus with foot ulcer; E10.621 - Type 1 diabetes mellitus with foot ulcer; E10.621 - Type 1 diabetes mellitus with foot ulcer; L97.411 - Non-pressure chronic ulcer of right heel and midfoot limited to breakdown of skin; L97.411 - Non-pressure chronic ulcer of right heel and midfoot limited to breakdown of skin; L97.411 - Non-pressure chronic ulcer of right heel and midfoot limited to breakdown of skin; L97.411 - Non-pressure chronic ulcer of right heel and midfoot limited to breakdown of skin (4) HTN (hypertension) Code(s): I10 - ESSENTIAL (PRIMARY) HYPERTENSION (5) Diabetes mellitus Code(s): E11.9 - TYPE 2 DIABETES MELLITUS WITHOUT COMPLICATIONS Qualifiers: Diabetes mellitus type: type 1 Diabetes mellitus complication status: with skin complications Diabetes mellitus complication detail: with foot ulcer Qualified Code(s): E10.621 - Type 1 diabetes mellitus with foot ulcer ; E10.621 - Type 1 diabetes mellitus with foot ulcer; E10.621 - Type 1 diabetes mellitus with foot ulcer; E10.621 - Type 1 diabetes mellitus with foot ulcer; L97.509 - Non-pressure chronic ulcer of other part of unspecified foot with unspecified severity; L97.509 - Non-pressure chronic ulcer of other part of unspecified foot with unspecified severity; L97.509 - Non-pressure chronic ulcer of other part of unspecified foot with unspecified severity; L97.509 - Non -pressure chronic ulcer of other part of unspecified foot with unspecified severity (6) Amputated toe of left foot Code(s): Z89.422 - ACQUIRED ABSENCE OF OTHER LEFT TOE(S) Assessment/Plan 1. Right heel ulcer and cellulitis post debridement and bone biopsy 2. PAD s/p left toe amputation 3. Type 2 DM 4. HTN/HCVD P:1. Complete abx course, wound care, bone pathology neg for osteomyelitis 2. Continue Norvasc 10 qd, losartan 50 qd 3. DVT and GI prophylaxis
--- NOTE | 2017-04-13 14:39 | PN ---
Progress Note, Physician History of Present Illness: patient doing well no issues cellulitits resolved - Current Medication List Current Medications: Active Medications Acetaminophen (Tylenol -) 650 mg PO Q6H PRN PRN Reason: FEVER OR PAIN Last Admin: 04/11/17 14:32 Dose: 650 mg Amlodipine Besylate (Norvasc -) 10 mg PO DAILY [facility] Last Admin: 04/13/17 10:17 Dose: 10 mg Heparin Sodium (Porcine) (Heparin -) 5,000 unit SQ BID [facility] Last Admin: 04/13/17 10:17 Dose: Not Given Piperacillin/Tazobactam/Dextrose (Zosyn 3.375gm Ivpb (Premix)) 50 mls @ 100 mls /hr IVPB Q8H-IV CHERYL PRN Reason: Protocol Last Admin: 04/13/17 10:17 Dose: 100 mls/hr Losartan Potassium (Cozaar -) 50 mg PO DAILY [facility] Last Admin: 04/13/17 10:17 Dose: 50 mg Mupirocin (Bactroban 2% Ointment -) 1 applic TP BID [facility] Last Admin: 04/13/17 10:17 Dose: Not Given Oxycodone HCl (Roxicodone -) 5 mg PO Q6H PRN PRN Reason: PAIN Last Admin: 04/13/17 10:22 Dose: 5 mg Pancrelipase (Creon Dr 36,000 Units Capsule) 1 cap PO TIDCM [facility] Last Admin: 04/13/17 11:52 Dose: 1 cap Pantoprazole Sodium (Protonix -) 40 mg PO DAILY [facility] Last Admin: 04/13/17 10:17 Dose: 40 mg - Objective Vital Signs: Vital Signs Temperature 98.2 F 04/13/17 10:15 Pulse Rate 82 04/13/17 10:15 Respiratory Rate 18 04/13/17 10:15 Blood Pressure 140/78 04/13/17 10:15 O2 Sat by Pulse Oximetry (%) 99 04/13/17 10:23 Constitutional: Yes: No Distress, Calm HENT: Yes: Atraumatic Neck: Yes: Supple Cardiovascular: Yes: Regular Rate and Rhythm Respiratory: Yes: Regular, CTA Bilaterally Gastrointestinal: Yes: Normal Bowel Sounds, Soft Musculoskeletal: Yes: Other Extremities: Yes: Other Wound/Incision: Yes: Dressing Dry and Intact Neurological: Yes: Alert, Oriented Psychiatric: Yes: Alert, Oriented Labs: CBC, BMP 04/11/17 06:05 04/11/17 06:05 Assessment/Plan Problem List - Problems (1) Cellulitis of right leg Code(s): L03.115 - CELLULITIS OF RIGHT LOWER LIMB (2) HTN (hypertension) Code(s): I10 - ESSENTIAL (PRIMARY) HYPERTENSION (3) Diabetes mellitus Code(s): E11.9 - TYPE 2 DIABETES MELLITUS WITHOUT COMPLICATIONS Qualifiers: Diabetes mellitus type: type 1 Diabetes mellitus complication status: with skin complications Diabetes mellitus complication detail: with foot ulcer Qualified Code(s): E10.621 - Type 1 diabetes mellitus with foot ulcer ; E10.621 - Type 1 diabetes mellitus with foot ulcer; E10.621 - Type 1 diabetes mellitus with foot ulcer; E10.621 - Type 1 diabetes mellitus with foot ulcer; L97.509 - Non-pressure chronic ulcer of other part of unspecified foot with unspecified severity; L97.509 - Non-pressure chronic ulcer of other part of unspecified foot with unspecified severity; L97.509 - Non-pressure chronic ulcer of other part of unspecified foot with unspecified severity; L97.509 - Non -pressure chronic ulcer of other part of unspecified foot with unspecified severity r/o osteo rt heel ulcer wound infection plan please send patient home on doxy 100 mg bid for 2 more weeks wound care as per podiatry
[2017-04-13 14:53] VITALS: BP 142/79; PULSE 85; TEMP 97.9
--- NOTE | 2017-04-13 15:01 | DS ---
Physical Examination Vital Signs: Vital Signs Temperature 98.2 F 04/13/17 10:15 Pulse Rate 82 04/13/17 10:15 Respiratory Rate 18 04/13/17 10:15 Blood Pressure 140/78 04/13/17 10:15 O2 Sat by Pulse Oximetry (%) 99 04/13/17 10:23 Constitutional: Yes: Well Nourished, No Distress, Calm Cardiovascular: Yes: Regular Rate and Rhythm Respiratory: Yes: Regular Edema: No Peripheral Pulses WNL: Yes Wound/Incision: Yes: Dressing Dry and Intact Neurological: Yes: Alert, Oriented Psychiatric: Yes: Alert, Oriented Labs: CBC, BMP 04/11/17 06:05 04/11/17 06:05 Discharge Summary Reason For Visit: CELLULITIS Current Active Problems Amputated toe of left foot (Acute) Anemia (Acute) Cellulitis of right leg (Acute) Hospital Course: Patient is a 57 y.o. male with a PMH of IDDM who presents at the wound clinic for evaluation of RLE erythema. Patient notes he noticed the erythema 3 days previous and denies any associated fevers, chills and notes he is ambulating without difficulty. Patient notes a h/o cellulitis as well as current R foot wound infection for which he is on daily Bactrim. Dr. Camargo called prior to patient's arrival and requested that patient be evaluated by Dr. Almanza from Infectious Disease.patient was on bactrim as outpatient During his hospital stay, pt was treated with IV Zosyn. He was evaluated by Podiatry and Infectious disease. He also had debridement of the wound. MRI RLE was negative for osteomyelitis. Pathology for RLE bone biopsy was negative for osteomyelitis as well. Patient was also seen by Endocrinology to adjust his insulin pump. Condition: Stable - Instructions Diet, Activity, Other Instructions: low sodium/diabetic diet -F/U with Dr Buenrostro and Dr Almanza within 2 weeks -F/U with PCP within 2 weeks -F/U with Dr Ruben Batres-Endocrinology within 2 weeks -Doxycycline 100 mg po BID for 2 weeks Nursing: please apply bactroban ointment and dry sterile dressing daily to R heel Referrals: Buster Faustin MD [Primary Care Provider] - Disposition: VNS/HOME HEALTH CARE - Home Medications Comprehensive Discharge Medication List: Ambulatory Orders Insulin Pump Cartridge [T:Flex] 1 each SQ ASDIR 04/25/16 Sulfamethoxazole/Trimethoprim [Bactrim DS -] 1 tab PO BID 04/03/17 Acetaminophen [Tylenol .Regular Strength -] 650 mg PO Q6H PRN #0 tablet Amlodipine Besylate [Norvasc -] 10 mg PO DAILY #30 tablet 04/13/17 Doxycycline Monohydrate [Mondoxyne Nl] 100 mg PO BID #28 capsule 04/13/17 Lipase/Protease/Amylase [Jose Juan Lovelace 36,000 Units Capsule] 1 cap PO TIDCM #90 cap 04/13/17 Losartan Potassium [Cozaar -] 50 mg PO DAILY #30 tablet 04/13/17 Mupirocin Ointment [Bactroban 2% Ointment -] 1 applic TP BID #22 g 04/13/17 Oxycodone HCl [Roxicodone -] 5 mg PO Q6H PRN #40 tablet MDD 4 04/13/17 Pantoprazole Sodium [Protonix -] 40 mg PO DAILY #30 tab 04/13/17
== END 2017-04-13 17:18 | disposition home or self-care (01) | DRG 623 ==
LOC: JER 12:39 → JERBED 15:41 → J5S 20:14 → J6S 04-10 19:39
PROVIDERS: ADMIT Family Medicine; ATTEND Family Medicine
PROC: 0JBQ0ZZ Excision of Right Foot Subcutaneous Tissue and Fascia, Open Approach (ICD-10-PCS; principal; 2017-04-09 11:00)
DX: E10.621 Type 1 diabetes mellitus with foot ulcer (principal); L97.418 Non-pressure chronic ulcer of right heel and midfoot with other specified severity; L03.115 Cellulitis of right lower limb; E87.1 Hypo-osmolality and hyponatremia; D64.9 Anemia, unspecified; I73.9 Peripheral vascular disease, unspecified; I11.9 Hypertensive heart disease without heart failure; Z79.4 Long term (current) use of insulin
CPT/HCPCS: 36415; 71020-TC; 73590-TC-RT; 73630-TC-RT; 73721-RT-TC; 80048; 80053; 80061; 81003; 82272; 82607; 82728; 82746; 83036; 83540; 83550; 83721; 83735; 84100; 85025; 85651; 86140; 87070; 87077; 87205; 88305-TC; 93005; 93010; 94760; 99283-25; J1644

== ENCOUNTER 2018-04-03 14:10 | Inpatient (IN) | payer OTHER ==
--- NOTE | 2018-04-03 14:20 | PDOC ---
Rapid Medical Evaluation Time Seen by Provider: 04/03/18 14:15 Medical Evaluation: Allergies Allergy/AdvReac Type Severity Reaction Status Date / Time No Known Drug Allergies Allergy Verified 04/03/17 12:44 04/03/18 14:17 The patient presents to the ED with: here for admission for diabetic foot wound to rt foot worsened since Sunday, no fever, glucose stable, Dr. Lazo sent in for planned sx? The patient on brief exam: physical exam deferred (FOOT WRAPPED) , VSS The patient ordered for: CBC, COMP, PT/INR, FOOT XRAY, TYPE AND SCREEN The patient to proceed to the ED Discharge Disposition - Diagnosis Wound of foot - Referrals Referrals: Ray Cisneros MD [Primary Care Provider] - - Patient Instructions - Post Discharge Activity
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
--- NOTE | 2018-04-03 16:12 | PDOC ---
Attending Attestation - [facility] HPI: 04/03/18 17:45 The patient is a 58 year old male presenting with his , with a significant past medical history of HTN and diabetes, who presents to the ED after being sent from the wound care clinic for admission due to a diabetic foot wound. 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 The patient currently has a wound on the right side of his right foot and their is currently drainage from the area. The patient had that area debreaded today. The patient denies chest pain, shortness of breath, headache and dizziness. Denies fever, chills, nausea, vomiting, diarrhea or constipation. Denies dysuria , frequency, urgency and hematuria. Allergies: None Past surgical history: Left foot half amputation Social History: No alcohol, tobacco or drug use reported - Physicial Exam PE: 04/03/18 17:45 Constitutional: Awake, alert, oriented. No acute distress. Head: Normocephalic. Atraumatic Eyes: PERRL. EOMI. Conjunctivae are not pale. ENT: Mucous membranes are moist and intact. Posterior pharynx without exudates or erythema. Uvula midline. Neck: Supple. Full ROM. No lymphadenopathy. Cardiovascular: Regular rate. Regular rhythm. S1, S2 regular. Distal pulses are 2+ and symmetric. Pulmonary/Chest: No evidence of respiratory distress. Clear to auscultation bilaterally No wheezing, rales or rhonchi. Abdominal: (+) Diabetic pump in place on the right abdomen. Soft and non- distended. There is no tenderness. No rebound, guarding or rigidity. No organomegaly. No palpable masses. Good bowel sounds. Back: No CVA tenderness. Musculoskeletal: No edema. No cyanosis. No clubbing. Full range of motion in all extremities. Nocalf tenderness. Radial/pedal pulses are intact and 2+ bilaterally Lower Extremities: (+) Mid left foot amputation that is well-healed. diabetic wound to heal and to R lateral aspect of R foot with purulent/serosanguinous drainage. Fluctuance and induration to bottom of foot/heal/R lateral aspect of foot. Prior skin grafting to bottom of foot. Skin: Skin is warm and dry. No petechiae. No purpura. Neurological: Alert and oriented to person, place, and time. Cranial nerves II -XII are grossly intact. Normal speech. Strength is grossly symmetric. No sensory deficits. Psychiatric: Good eye contact. Normal interaction, affect and behavior. <Edwin Lazcano - Last Filed: 04/03/18 17:45> - Resident Resident Name: Jennifer Whiteside - ED Attending Attestation I have performed the following: I have examined & evaluated the patient, The case was reviewed & discussed with the resident, I agree w/resident's findings & plan, Exceptions are as noted - Medical Decision Making 04/03/18 16:11 I, Dr. Angela Cain, DO, attest that this document has been prepared under my direction and personally reviewed by me in its entirety. I further attest, that it accurately reflects all work, treatment, procedures and medical decision -making performed by me. 04/03/18 17:26 a/p: 58yo male sent from wound care clinic for admission for diabetic foot wound -pt with prior hx of amputation to L midfoot and R little toe -diabetic wound to heal and to R lateral aspect of R foot with purulent/ serosanguinous drainage -no fevers -fluctuance and induration to bottom of foot/heal/R lateral aspect of foot -prior skin grafting to bottom of foot -had debridement performed today -will send labs, ekg, chest, xray R foot -will send cultures -will admit -worsening swelling of the foot and drainage over the last week 04/03/18 17:29 prior cultures show MRSA/enterococcus/proteus -will start broad spectrum abx 04/03/18 18:[address] Antunez who accepts pt to service <Angela Cain - Last Filed: 04/03/18 18:26> Heart Score/ECG Review - ECG Intrepretation Comment:: 04/03/18 17:31 sinus at 86, nl axis, nl interval, no acute st/t wave findings, pvc <Angela Cain - Last Filed: 04/03/18 18:26>
[2018-04-03] MEDS ORDERED: CEFEPIME HCL/D5W 2 GM/50 ML BAG IVPB ONE (17:13)
[2018-04-03] MEDS ORDERED: VANCOMYCIN 1 GRAM (PRE-DOCKED) 1,000 MG/250 ML BAG IVPB ONE ×2 (17:13→18:38)
[2018-04-03] MEDS ORDERED: guaiFENesin 200 MG/10 ML 10 ML UNIT-DOSE CUPS PO ONE (17:23)
[2018-04-03] MEDS ORDERED: guaiFENesin 200 MG/10 ML 10 ML UNIT-DOSE CUPS ONE (17:50)
[2018-04-03] MEDS ORDERED: CEFEPIME 2 GM/100 ML BAG IVPB ONE (17:50)
[2018-04-03 18:03] LABS: EOS % 4.8 % (0-4.5); HEMATOCRIT 36.6 % (35.4-49); HEMOGLOBIN 12.1 GM/dL (11.7-16.9); LYMPH % 12.1 % (8-40); MCH 29.8 pg (25.7-33.7); MCHC 33.1 g/dl (32.0-35.9); MEAN CELL VOLUME 89.9 fl (80-96); MEAN PLT VOLUME 8.1 fl (7.5-11.1); MONO % 6.1 % (3.8-10.2); PLATELET COUNT 300 K/MM3 (134-434); RBC 4.07 M/mm3 (4.00-5.60); RDW 14.2 % (11.9-15.9); WHITE BLOOD COUNT 9.8 K/mm3 (4.0-10.0)
[2018-04-03 18:45] LABS: ALBUMIN 3.2 g/dl (3.4-5.0); ALK PHOS 110 U/L (45-117); ANION GAP 7 MMOL/L (8-16); BILIRUBIN,TOTAL 0.4 mg/dL (0.2-1); BLOOD UREA NITROGEN 20 mg/dL (7-18); CALCIUM 8.3 mg/dL (8.5-10.1); CHLORIDE 98 mmol/L (98-107); CO2 29 mmol/L (21-32); CREATININE 1.1 mg/dL (0.55-1.3); GLUCOSE,RANDOM 260 mg/dL (74-106); POTASSIUM 4.4 mmol/L (3.5-5.1); SGOT/AST 16 U/L (15-37); SGPT/ALT 16 U/L (13-61); SODIUM 134 mmol/L (136-145); TOT PROT 7.3 g/dl (6.4-8.2)
[2018-04-03 19:15] LABS: INR 0.96 (0.83-1.09); PROTHROMBIN TIME (PATIENT) 11.3 SEC (9.7-13.0)
--- NOTE | 2018-04-03 20:23 | HP ---
Admitting History and Physical - Primary Care Physician PCP: Emmanuelle Antunez - Admission History of Present Illness: 58 year old male presenting with his , with a significant past medical history of HTN and diabetes, who presents to the ED after being sent from the wound care clinic for admission due to a diabetic foot wound. 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 The patient currently has a wound on the right side of his right foot and their is currently drainage from the area. s/p debridement today - Past Medical History Cardiovascular: Yes: HTN, Hyperlipdemia Infectious Disease: Yes: Other (FOOT ULCER) Musculoskeletal: Yes: Other (FOOT ULCER AND REDNESS) Endocrine: Yes: Diabetes Mellitus - Past Surgical History Past Surgical History: Yes: Amputation (left foot) - Smoking History Smoking history: Never smoked Have you smoked in the past 12 months: No - Alcohol/Substance Use Hx Alcohol Use: No History of Substance Use: reports: None Home Medications - Allergies Allergies/Adverse Reactions: Allergies Allergy/AdvReac Type Severity Reaction Status Date / Time No Known Drug Allergies Allergy Verified 04/03/18 14:19 - Home Medications Home Medications: Ambulatory Orders Insulin Pump Cartridge [T:Flex] 1 each SQ ASDIR 04/25/16 Physical Examination Vital Signs: Vital Signs Temperature 98.0 F 04/03/18 14:18 Pulse Rate 85 04/03/18 14:18 Respiratory Rate 16 04/03/18 14:18 Blood Pressure 141/111 H 04/03/18 14:18 O2 Sat by Pulse Oximetry (%) 100 04/03/18 14:18 Constitutional: Yes: No Distress HENT: Yes: Atraumatic Neck: Yes: Supple Cardiovascular: Yes: Regular Rate and Rhythm Respiratory: Yes: CTA Bilaterally Gastrointestinal: Yes: Normal Bowel Sounds Extremities: Yes: Other (R foot cellulitis) Edema: Yes Edema: RLE: 1+ Neurological: Yes: Alert, Oriented Labs: CBC, BMP 04/03/18 17:50 04/03/18 17:50 Imaging - Results X-ray: Report Reviewed Problem List - Problems (1) Wound of foot Assessment/Plan: iv abx id consult Code(s): S91.309A - UNSPECIFIED OPEN WOUND, UNSPECIFIED FOOT, INITIAL ENCOUNTER (2) Diabetic foot ulcer Code(s): E11.621 - TYPE 2 DIABETES MELLITUS WITH FOOT ULCER; L97.509 - NON- PRESSURE CHRONIC ULCER OTH PRT UNSP FOOT W UNSP SEVERITY Qualifiers: (3) HTN (hypertension) Assessment/Plan: on meds stable Code(s): I10 - ESSENTIAL (PRIMARY) HYPERTENSION Qualifiers: (4) Diabetes mellitus Assessment/Plan: on meds blood sugars are controlled Code(s): E11.9 - TYPE 2 DIABETES MELLITUS WITHOUT COMPLICATIONS Assessment/Plan Laboratory Tests 04/03/18 04/03/18 04/03/18 17:50 17:50 17:50 WBC 9.8 RBC 4.07 Hgb 12.1 Hct 36.6 MCV 89.9 MCH 29.8 MCHC 33.1 RDW 14.2 Plt Count 300 MPV 8.1 Absolute Neuts (auto) 7.5 Neutrophils % 76.0 Lymphocytes % 12.1 D Monocytes % 6.1 Eosinophils % 4.8 H Basophils % 1.0 Nucleated RBC % 0 PT with INR 11.30 INR 0.96 Sodium 134 L Potassium 4.4 Chloride 98 Carbon Dioxide 29 Anion Gap 7 L BUN 20 H Creatinine 1.1 Creat Clearance w eGFR > 60 Random Glucose 260 H Calcium 8.3 L Total Bilirubin 0.4 AST 16 ALT 16 Alkaline Phosphatase 110 Total Protein 7.3 Albumin 3.2 L Blood Type Antibody Screen 04/03/18 17:50 WBC RBC Hgb Hct MCV MCH MCHC RDW Plt Count MPV Absolute Neuts (auto) Neutrophils % Lymphocytes % Monocytes % Eosinophils % Basophils % Nucleated RBC % PT with INR INR Sodium Potassium Chloride Carbon Dioxide Anion Gap BUN Creatinine Creat Clearance w eGFR Random Glucose Calcium Total Bilirubin AST ALT Alkaline Phosphatase Total Protein Albumin Blood Type O POSITIVE Antibody Screen Negative Active Medications Generic Name Dose Route Start Last Admin Trade Name Freq PRN Reason Stop Dose Admin Acetaminophen 650 mg 04/03/18 20:26 Tylenol - PO Q6H PRN FEVER Heparin Sodium (Porcine) 5,000 unit 04/03/18 22:00 04/04/18 10:06 Heparin - SQ Not Given BID CHERYL Ampicillin Sodium/Sulbactam 100 mls @ 200 mls/hr 04/04/18 18:00 Sodium 3 gm/ Sodium Chloride IVPB Q8H-IV CHERYL
[2018-04-03] MEDS ORDERED: ACETAMINOPHEN 325 MG TABLET (FP) PO PRN (20:26)
[2018-04-03] MEDS ORDERED: INSULIN PUMP CARTRIDGE SQ SCH (20:30)
[2018-04-03] MEDS ORDERED: HEPARIN NA (PORCINE) 5,000 UNITS/ML 1ML VIAL ONE (21:09)
[2018-04-03] MEDS: HEPARIN NA (PORCINE) 5,000 UNITS/ML 1ML VIAL SQ SCH (21:27)
[2018-04-04 07:00] LABS: BASO % 0.7 % (0-2.0); EOS % 5.7 % (0-4.5); HEMATOCRIT 36.2 % (35.4-49); HEMOGLOBIN 11.7 GM/dL (11.7-16.9); LYMPH % 14.6 % (8-40); MCH 29.2 pg (25.7-33.7); MCHC 32.3 g/dl (32.0-35.9); MEAN CELL VOLUME 90.2 fl (80-96); MEAN PLT VOLUME 7.8 fl (7.5-11.1); MONO % 7.2 % (3.8-10.2); NEUT % 71.8 % (42.8-82.8); PLATELET COUNT 279 K/MM3 (134-434); RBC 4.01 M/mm3 (4.00-5.60); RDW 14.4 % (11.9-15.9); WHITE BLOOD COUNT 7.4 K/mm3 (4.0-10.0)
[2018-04-04 07:21] LABS: ALK PHOS 95 U/L (45-117); ANION GAP 6 MMOL/L (8-16); BILIRUBIN,TOTAL 0.6 mg/dL (0.2-1); BLOOD UREA NITROGEN 19 mg/dL (7-18); CALCIUM 8.2 mg/dL (8.5-10.1); CHLORIDE 98 mmol/L (98-107); CO2 31 mmol/L (21-32); GLUCOSE,RANDOM 229 mg/dL (74-106); POTASSIUM 4.1 mmol/L (3.5-5.1); SGOT/AST 11 U/L (15-37); SGPT/ALT 14 U/L (13-61); SODIUM 135 mmol/L (136-145)
[2018-04-04] MEDS: HEPARIN NA (PORCINE) 5,000 UNITS/ML 1ML VIAL SQ SCH ×3 (10:06→21:42)
--- NOTE | 2018-04-04 12:11 | EKG ---
Test Reason : Blood Pressure : / mmHG Vent. Rate : 086 BPM Atrial Rate : 086 BPM P-R Int : 152 ms QRS Dur : 088 ms QT Int : 370 ms P-R-T Axes : 045 028 038 degrees QTc Int : 442 ms NORMAL SINUS RHYTHM NORMAL ECG WHEN COMPARED WITH ECG OF 03-APR-2017 16:35, NONSPECIFIC T WAVE ABNORMALITY HAS REPLACED INVERTED T WAVES IN INFERIOR LEADS Confirmed by DULCE YUAN, GUERA ([id number]) on 04/04/2018 12:11:16 PM Referred By: Confirmed By:GUERA CARDONA MD
--- NOTE | 2018-04-04 14:39 | CONSULT ---
- Consultation REQUESTING PROVIDER: CONSULT REQUEST: We have been asked to surgically evaluate this patient for Right diabetic foot wound/cellulitis. PCP:Emmanuelle Antunez HISTORY OF PRESENT ILLNESS: 58yo M sent to the ED from doctors office for cellulitis of the RLE. Pt states that he went to seen Dr. Buenrostro for a wound on the bottom of his foot that was not healing. Pt states he only feels the wound was present for a couple days. Pt denies any fever, chills, n/v. Pt had previous partial amputation of right foot including 5th toe. PMHx: DM, HTN Home Medications Medication Instructions Recorded Insulin Pump Cartridge [T:Flex] 1 each SQ ASDIR 04/25/16 Allergies Allergy/AdvReac Type Severity Reaction Status Date / Time No Known Drug Allergies Allergy Verified 04/03/18 14:19 REVIEW OF SYSTEMS: CONSTITUTIONAL: Absent: fever, chills, diaphoresis, generalized weakness, malaise, loss of appetite, weight change CARDIOVASCULAR: Absent: chest pain, syncope, palpitations, irregular heart rate, lightheadedness , peripheral edema RESPIRATORY: Absent: cough, shortness of breath, dyspnea with exertion, wheezing, stridor, hemoptysis SKIN: Absent: rash, itching, pallor HEMATOLOGIC/IMMUNOLOGIC: Absent: easy bleeding, easy bruising, lymphadenopathy PHYSICAL EXAM: GENERAL: Awake, alert, and fully oriented, in no acute distress. HEAD: Normal with no signs of trauma. EYES: PERRL, sclera anicteric, conjunctiva clear. NECK: Normal ROM LUNGS: Clear to auscultation bilat anteriorly. No wheezes, and no crackles. No accessory muscle use. HEART: Regular rate and rhythm. No murmurs ABDOMEN: Soft, nontender, not distended, normoactive bowel sounds, no guarding, no rebound, no masses. No organomegaly. MUSCULOSKELETAL: Normal ROM at all joints. No bony deformities or tenderness. No CVA tenderness. LOWER EXTREMITIES: +2 pedal pulse, RLE shows +2 edema with erythema up to knee, 2 cm wound on lateral foot with serous drainage, 2 cm wound on heel with no drainage or erythema, no purulant drainage. Rt foot s/p partial foot and 5th toe amputation. NEUROLOGICAL: Normal speech, gait not observed. PSYCH: Cooperative. Good eye contact. Appropriate mood and affect. SKIN: Warm, dry, normal turgor, no rashes or lesions noted. Vital Signs Temperature 98.8 F 04/04/18 09:35 Pulse Rate 88 04/04/18 09:35 Respiratory Rate 20 04/04/18 09:35 Blood Pressure 154/85 04/04/18 09:35 O2 Sat by Pulse Oximetry (%) 100 04/03/18 14:18 Lab Results WBC 7.4 K/mm3 (4.0-10.0) 04/04/18 06:30 RBC 4.01 M/mm3 (4.00-5.60) 04/04/18 06:30 Hgb 11.7 GM/dL (11.7-16.9) 04/04/18 06:30 Hct 36.2 % (35.4-49) 04/04/18 06:30 MCV 90.2 fl (80-96) 04/04/18 06:30 MCHC 32.3 g/dl (32.0-35.9) 04/04/18 06:30 RDW 14.4 % (11.9-15.9) 04/04/18 06:30 Plt Count 279 K/MM3 (134-434) 04/04/18 06:30 Sodium 135 mmol/L (136-145) L 04/04/18 06:30 Potassium 4.1 mmol/L (3.5-5.1) 04/04/18 06:30 Chloride 98 mmol/L (98-107) 04/04/18 06:30 Carbon Dioxide 31 mmol/L (21-32) 04/04/18 06:30 Anion Gap 6 MMOL/L (8-16) L 04/04/18 06:30 BUN 19 mg/dL (7-18) H 04/04/18 06:30 Creatinine 1.0 mg/dL (0.55-1.3) 04/04/18 06:30 Random Glucose 229 mg/dL (74-106) H 04/04/18 06:30 Calcium 8.2 mg/dL (8.5-10.1) L 04/04/18 06:30 Blood Type O POSITIVE 04/03/18 17:50 Antibody Screen Negative 04/03/18 17:50 INR 0.96 (0.83-1.09) 04/03/18 17:50 Problem List - Problems (1) Diabetic foot ulcer Assessment/Plan: Plan -continue abx as per medicine -MRI foot, r/o osteo -Santyl and dry dressing Code(s): E11.621 - TYPE 2 DIABETES MELLITUS WITH FOOT ULCER; L97.509 - NON- PRESSURE CHRONIC ULCER OTH PRT UNSP FOOT W UNSP SEVERITY Qualifiers:
[2018-04-04 15:22] VITALS: BMI 43.2
--- NOTE | 2018-04-04 15:57 | CON.ID ---
Consult Consult Specialty:: infectious diseases Reason for Consultation:: cellulittis of the foot right - History of Present Illness Chief Complaint: pain and swelling of the rt foot History of Present Illness: 58 year old male presenting with his , with a significant past medical history of HTN and diabetes, who presents to the ED after being sent from the wound care clinic for admission due to a diabetic foot wound. 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 The patient currently has a wound on the right side of his right foot patient also has a small wound which is not draining patient has excess tissue probably bone patient has ahd couple of shaving on the leg. vascular on board wound evaluated with vascular team - History Source History Provided By: Patient Limitations to Obtaining History: No Limitations - Past Medical History Cardio/Vascular: Yes: HTN, Hyperlipdemia Infectious Disease: Yes: Other (FOOT ULCER) Musculoskeletal: Yes: Other (FOOT ULCER AND REDNESS) Endocrine: Yes: Diabetes Mellitus - Past Surgical History Past Surgical History: Yes: Amputation - Alcohol/Substance Use Hx Alcohol Use: No History of Substance Use: reports: None - Smoking History Smoking history: Never smoked Have you smoked in the past 12 months: No Home Medications - Allergies Allergies/Adverse Reactions: Allergies Allergy/AdvReac Type Severity Reaction Status Date / Time No Known Drug Allergies Allergy Verified 04/03/18 14:19 - Home Medications Home Medications: Ambulatory Orders Insulin Pump Cartridge [T:Flex] 1 each SQ ASDIR 04/25/16 Review of Systems - Review of Systems Constitutional: reports: No Symptoms Eyes: reports: No Symptoms HENT: reports: No Symptoms Neck: reports: No Symptoms Cardiovascular: reports: No Symptoms Respiratory: reports: No Symptoms Gastrointestinal: reports: No Symptoms Genitourinary: reports: No Symptoms Musculoskeletal: reports: Muscle Pain Integumentary: reports: Change in Color, Erythema, Wound Neurological: reports: No Symptoms Endocrine: reports: No Symptoms Hematology/Lymphatic: reports: No Symptoms Psychiatric: reports: No Symptoms Physical Exam Vital Signs: Vital Signs Temperature 98.7 F 04/04/18 13:51 Pulse Rate 86 04/04/18 13:51 Respiratory Rate 20 04/04/18 13:51 Blood Pressure 173/79 H 04/04/18 13:51 O2 Sat by Pulse Oximetry (%) 94 L 04/03/18 17:10 Constitutional: Yes: Well Nourished, Calm, Obese Eyes: Yes: Conjunctiva Clear Cardiovascular: Yes: Regular Rate and Rhythm Respiratory: Yes: Regular, CTA Bilaterally Gastrointestinal: Yes: Normal Bowel Sounds, Soft Musculoskeletal: Yes: WNL Extremities: Yes: Other (RLE shows +2 edema with erythema up to knee, 2 cm wound on lateral foot with serous drainage, 2 cm wound on heel with no drainage or erythema, no purulant drainage. Rt foot s/p partial foot and 5th toe amputation) Integumentary: Yes: Erythema (rt leg) Wound/Incision: Yes: Other (RLE shows +2 edema with erythema up to knee, 2 cm wound on lateral foot with serous drainage, 2 cm wound on heel with no drainage or erythema, no purulant drainage. Rt foot s/p partial foot and 5th toe amputation) Neurological: Yes: Alert, Oriented Psychiatric: Yes: Alert, Oriented Labs: CBC, BMP 04/04/18 06:30 04/04/18 06:30 Imaging - Results Chest X-ray: Report Reviewed, Image Reviewed X-ray: Report Reviewed, Image Reviewed Assessment/Plan Problem List - Problems (1) Wound of foot Code(s): S91.309A - UNSPECIFIED OPEN WOUND, UNSPECIFIED FOOT, INITIAL ENCOUNTER (2) Diabetic foot ulcer Code(s): E11.621 - TYPE 2 DIABETES MELLITUS WITH FOOT ULCER; L97.509 - NON- PRESSURE CHRONIC ULCER OTH PRT UNSP FOOT W UNSP SEVERITY Qualifiers: (3) HTN (hypertension) Code(s): I10 - ESSENTIAL (PRIMARY) HYPERTENSION Qualifiers: (4) Diabetes mellitus Code(s): E11.9 - TYPE 2 DIABETES MELLITUS WITHOUT COMPLICATIONS plan will order mri to r/o osteo will start on abx previous cx report noted rest continue current mgmt vacular and wound care on board wound care
--- NOTE | 2018-04-04 18:43 | PN ---
Progress Note, Physician - Current Medication List Current Medications: Active Medications Acetaminophen (Tylenol -) 650 mg PO Q6H PRN PRN Reason: FEVER Heparin Sodium (Porcine) (Heparin -) 5,000 unit SQ BID CHERYL Last Admin: 04/04/18 10:06 Dose: Not Given Ampicillin Sodium/Sulbactam (Sodium 3 gm/ Sodium Chloride) 100 mls @ 200 mls/ hr IVPB Q8H-IV CHERYL - Objective Vital Signs: Vital Signs Temperature 98.7 F 04/04/18 13:51 Pulse Rate 86 04/04/18 13:51 Respiratory Rate 20 04/04/18 13:51 Blood Pressure 173/79 H 04/04/18 13:51 O2 Sat by Pulse Oximetry (%) 94 L 04/03/18 17:10 Constitutional: Yes: No Distress HENT: Yes: Atraumatic Neck: Yes: Supple Cardiovascular: Yes: Regular Rate and Rhythm Respiratory: Yes: CTA Bilaterally Gastrointestinal: Yes: Normal Bowel Sounds Extremities: Yes: Other (R foot cellulitis) Neurological: Yes: Alert, Oriented Labs: CBC, BMP 04/04/18 06:30 04/04/18 06:30 INR, PTT INR 0.96 (0.83-1.09) 04/03/18 17:50 Problem List - Problems (1) Wound of foot Assessment/Plan: iv abx id consult dr duque consult Code(s): S91.309A - UNSPECIFIED OPEN WOUND, UNSPECIFIED FOOT, INITIAL ENCOUNTER (2) Diabetic foot ulcer Code(s): E11.621 - TYPE 2 DIABETES MELLITUS WITH FOOT ULCER; L97.509 - NON- PRESSURE CHRONIC ULCER OTH PRT UNSP FOOT W UNSP SEVERITY Qualifiers: (3) HTN (hypertension) Assessment/Plan: on meds stable Code(s): I10 - ESSENTIAL (PRIMARY) HYPERTENSION Qualifiers: (4) Diabetes mellitus Assessment/Plan: on meds bgms Code(s): E11.9 - TYPE 2 DIABETES MELLITUS WITHOUT COMPLICATIONS
[2018-04-04] MEDS: AMPICILLIN NA/SULBACTAM NA 3 GM in SODIUM CHLORIDE 100 ML IVPB SCH (18:45)
[2018-04-05] MEDS: AMPICILLIN NA/SULBACTAM NA 3 GM in SODIUM CHLORIDE 100 ML IVPB SCH ×3 (02:00→17:26)
[2018-04-05] MEDS ORDERED: PT OWN MED DRAWER 7, Y5N ONE ×4 (02:21→17:36)
[2018-04-05] MEDS: HEPARIN NA (PORCINE) 5,000 UNITS/ML 1ML VIAL SQ SCH ×2 (10:41→22:02)
--- NOTE | 2018-04-05 12:47 | PN ---
Progress Note, Physician History of Present Illness: doing well leg starting to improve mri result noted pain better - Current Medication List Current Medications: Active Medications Acetaminophen (Tylenol -) 650 mg PO Q6H PRN PRN Reason: FEVER Heparin Sodium (Porcine) (Heparin -) 5,000 unit SQ BID CHERYL Last Admin: 04/05/18 10:41 Dose: Not Given Ampicillin Sodium/Sulbactam (Sodium 3 gm/ Sodium Chloride) 100 mls @ 200 mls/ hr IVPB Q8H-IV CHERYL Last Admin: 04/05/18 10:18 Dose: 200 mls/hr - Objective Vital Signs: Vital Signs Temperature 98.1 F 04/05/18 09:02 Pulse Rate 82 04/05/18 09:02 Respiratory Rate 18 04/05/18 09:02 Blood Pressure 154/78 04/05/18 09:02 O2 Sat by Pulse Oximetry (%) 95 04/04/18 22:00 Constitutional: Yes: No Distress, Calm Cardiovascular: Yes: Regular Rate and Rhythm Respiratory: Yes: Regular, CTA Bilaterally Gastrointestinal: Yes: Normal Bowel Sounds, Soft Musculoskeletal: Yes: WNL Extremities: Yes: Other (as described in consult) Integumentary: Yes: Erythema, Other (as described in consult) Neurological: Yes: Alert, Oriented Psychiatric: Yes: Alert, Oriented Labs: CBC, BMP 04/04/18 06:30 04/04/18 06:30 INR, PTT INR 0.96 (0.83-1.09) 04/03/18 17:50 - ....Imaging MRI: Report Reviewed, Image Reviewed Assessment/Plan Problem List - Problems (1) Wound of foot Code(s): S91.309A - UNSPECIFIED OPEN WOUND, UNSPECIFIED FOOT, INITIAL ENCOUNTER (2) Diabetic foot ulcer Code(s): E11.621 - TYPE 2 DIABETES MELLITUS WITH FOOT ULCER; L97.509 - NON- PRESSURE CHRONIC ULCER OTH PRT UNSP FOOT W UNSP SEVERITY Qualifiers: (3) HTN (hypertension) Code(s): I10 - ESSENTIAL (PRIMARY) HYPERTENSION Qualifiers: (4) Diabetes mellitus Code(s): E11.9 - TYPE 2 DIABETES MELLITUS WITHOUT COMPLICATIONS plan continue abx previous cx report noted rest continue current mgmt vascular and wound care on board wound care
--- NOTE | 2018-04-05 13:04 | PN ---
Progress Note (short form) - Note Progress Note: Vascular Surgery MRI shows no osteo. Cont santyl. Cont IV antibiotics. Cx pending. Will follow Ray Lazo DO
[2018-04-05] MEDS: COLLAGENASE CLOSTRIDIUM HIST. 30 GRAMS TUBE TP SCH (13:45)
--- NOTE | 2018-04-05 16:12 | PN ---
Progress Note, Physician - Current Medication List Current Medications: Active Medications Acetaminophen (Tylenol -) 650 mg PO Q6H PRN PRN Reason: FEVER Collagenase (Santyl -) 1 applic TP DAILY [facility]; Protocol Heparin Sodium (Porcine) (Heparin -) 5,000 unit SQ BID CHERYL Last Admin: 04/05/18 10:41 Dose: Not Given Ampicillin Sodium/Sulbactam (Sodium 3 gm/ Sodium Chloride) 100 mls @ 200 mls/ hr IVPB Q8H-IV CHERYL Last Admin: 04/05/18 10:18 Dose: 200 mls/hr - Objective Vital Signs: Vital Signs Temperature 99.1 F 04/05/18 15:04 Pulse Rate 81 04/05/18 15:04 Respiratory Rate 18 04/05/18 15:04 Blood Pressure 147/77 04/05/18 15:04 O2 Sat by Pulse Oximetry (%) 95 04/04/18 22:00 Constitutional: Yes: No Distress HENT: Yes: Atraumatic Neck: Yes: Supple Cardiovascular: Yes: Regular Rate and Rhythm Respiratory: Yes: CTA Bilaterally Gastrointestinal: Yes: Normal Bowel Sounds Extremities: Yes: Other (R foot in dressing) Neurological: Yes: Alert, Oriented Labs: CBC, BMP 04/04/18 06:30 04/04/18 06:30 INR, PTT INR 0.96 (0.83-1.09) 04/03/18 17:50 Problem List - Problems (1) Wound of foot Assessment/Plan: iv abx id consult dr duque consult Code(s): S91.309A - UNSPECIFIED OPEN WOUND, UNSPECIFIED FOOT, INITIAL ENCOUNTER (2) Diabetic foot ulcer Code(s): E11.621 - TYPE 2 DIABETES MELLITUS WITH FOOT ULCER; L97.509 - NON- PRESSURE CHRONIC ULCER OTH PRT UNSP FOOT W UNSP SEVERITY Qualifiers: (3) HTN (hypertension) Assessment/Plan: on meds stable Code(s): I10 - ESSENTIAL (PRIMARY) HYPERTENSION Qualifiers: (4) Diabetes mellitus Code(s): E11.9 - TYPE 2 DIABETES MELLITUS WITHOUT COMPLICATIONS
[2018-04-05] MEDS ORDERED: INSULIN (NOVOLOG) ASPART 100 UNITS/ML 10ML VIAL ONE (21:53)
[2018-04-05] MEDS: INSULIN SLIDING SCALE (NOVOLOG) 1 VIAL SQ SCH (22:02)
[2018-04-06] MEDS: AMPICILLIN NA/SULBACTAM NA 3 GM in SODIUM CHLORIDE 100 ML IVPB SCH ×3 (01:41→18:31)
[2018-04-06] MEDS: INSULIN SLIDING SCALE (NOVOLOG) 1 VIAL SQ SCH ×4 (06:23→21:07)
[2018-04-06] MEDS ORDERED: PT OWN MED DRAWER 7, Y5N ONE ×2 (10:26→18:25)
[2018-04-06] MEDS: HEPARIN NA (PORCINE) 5,000 UNITS/ML 1ML VIAL SQ SCH ×2 (11:22→21:07)
[2018-04-06] MEDS: COLLAGENASE CLOSTRIDIUM HIST. 30 GRAMS TUBE TP SCH (11:22)
--- NOTE | 2018-04-06 16:28 | PN ---
Progress Note, Physician - Current Medication List Current Medications: Active Medications Acetaminophen (Tylenol -) 650 mg PO Q6H PRN PRN Reason: FEVER Collagenase (Santyl -) 1 applic TP DAILY [facility]; Protocol Last Admin: 04/06/18 11:22 Dose: 1 applic Heparin Sodium (Porcine) (Heparin -) 5,000 unit SQ BID CHERYL Last Admin: 04/06/18 11:22 Dose: Not Given Ampicillin Sodium/Sulbactam (Sodium 3 gm/ Sodium Chloride) 100 mls @ 200 mls/ hr IVPB Q8H-IV CHERYL Last Admin: 04/06/18 11:22 Dose: 200 mls/hr Insulin Aspart (Novolog Vial Sliding Scale -) 1 vial SQ ACHS [facility]; Protocol Last Admin: 04/06/18 12:16 Dose: 2 units - Objective Vital Signs: Vital Signs Temperature 97.7 F 04/06/18 10:25 Pulse Rate 80 04/06/18 10:25 Respiratory Rate 18 04/06/18 10:25 Blood Pressure 157/79 04/06/18 10:25 O2 Sat by Pulse Oximetry (%) 95 04/05/18 22:00 Constitutional: Yes: No Distress HENT: Yes: Atraumatic Neck: Yes: Supple Cardiovascular: Yes: Regular Rate and Rhythm Respiratory: Yes: CTA Bilaterally Gastrointestinal: Yes: Normal Bowel Sounds Extremities: Yes: Other (R foot cellulitis...in dressing) Neurological: Yes: Alert, Oriented Labs: CBC, BMP 04/04/18 06:30 04/04/18 06:30 INR, PTT INR 0.96 (0.83-1.09) 04/03/18 17:50 Problem List - Problems (1) Wound of foot Assessment/Plan: iv abx id consult vascular consult reviewed Code(s): S91.309A - UNSPECIFIED OPEN WOUND, UNSPECIFIED FOOT, INITIAL ENCOUNTER (2) Diabetic foot ulcer Code(s): E11.621 - TYPE 2 DIABETES MELLITUS WITH FOOT ULCER; L97.509 - NON- PRESSURE CHRONIC ULCER OTH PRT UNSP FOOT W UNSP SEVERITY Qualifiers: (3) HTN (hypertension) Assessment/Plan: on meds stable Code(s): I10 - ESSENTIAL (PRIMARY) HYPERTENSION Qualifiers: (4) Diabetes mellitus Assessment/Plan: on meds blood sugars are controlled Code(s): E11.9 - TYPE 2 DIABETES MELLITUS WITHOUT COMPLICATIONS
[2018-04-06] MEDS: guaiFENesin 200 MG/10 ML 10 ML UNIT-DOSE CUPS PO PRN (18:31)
--- NOTE | 2018-04-06 18:46 | PN ---
Progress Note, Physician History of Present Illness: Pt states he is starting to feel better. Has no specific complaints. - Current Medication List Current Medications: Active Medications Acetaminophen (Tylenol -) 650 mg PO Q6H PRN PRN Reason: FEVER Collagenase (Santyl -) 1 applic TP DAILY [facility]; Protocol Last Admin: 04/06/18 11:22 Dose: 1 applic Guaifenesin (Robitussin -) 10 ml PO Q6H PRN PRN Reason: COUGH Last Admin: 04/06/18 18:31 Dose: 10 ml Heparin Sodium (Porcine) (Heparin -) 5,000 unit SQ BID [facility] Last Admin: 04/06/18 11:22 Dose: Not Given Ampicillin Sodium/Sulbactam (Sodium 3 gm/ Sodium Chloride) 100 mls @ 200 mls/ hr IVPB Q8H-IV [facility] Last Admin: 04/06/18 18:31 Dose: 200 mls/hr Insulin Aspart (Novolog Vial Sliding Scale -) 1 vial SQ ACHS [facility]; Protocol Last Admin: 04/06/18 16:43 Dose: Not Given - Objective Vital Signs: Vital Signs Temperature 97.7 F 04/06/18 10:25 Pulse Rate 80 04/06/18 10:25 Respiratory Rate 18 04/06/18 10:25 Blood Pressure 157/79 04/06/18 10:25 O2 Sat by Pulse Oximetry (%) 95 04/05/18 22:00 Constitutional: Yes: No Distress, Calm Cardiovascular: Yes: Regular Rate and Rhythm Respiratory: Yes: Regular Gastrointestinal: Yes: Normal Bowel Sounds, Soft Extremities: Yes: Erythema (mild RLE erythema/warmth, no tenderness) Wound/Incision: Yes: Dressing Dry and Intact Neurological: Yes: Alert Labs: CBC, BMP 04/04/18 06:30 04/04/18 06:30 INR, PTT INR 0.96 (0.83-1.09) 04/03/18 17:50 - ....Imaging MRI: Report Reviewed Problem List - Problems (1) Cellulitis of right leg Code(s): L03.115 - CELLULITIS OF RIGHT LOWER LIMB (2) Diabetic foot ulcer Code(s): E11.621 - TYPE 2 DIABETES MELLITUS WITH FOOT ULCER; L97.509 - NON- PRESSURE CHRONIC ULCER OTH PRT UNSP FOOT W UNSP SEVERITY Qualifiers: (3) HTN (hypertension) Code(s): I10 - ESSENTIAL (PRIMARY) HYPERTENSION Qualifiers: (4) Diabetes mellitus Code(s): E11.9 - TYPE 2 DIABETES MELLITUS WITHOUT COMPLICATIONS Assessment/Plan Rt foot wound infection/cellulitis DM appears to be improving continue IV antibiotics for now continue wound care pt afebrile, without distress
[2018-04-06] MEDS ORDERED: INSULIN (NOVOLOG) ASPART 100 UNITS/ML 10ML VIAL ONE (21:01)
[2018-04-07] MEDS: AMPICILLIN NA/SULBACTAM NA 3 GM in SODIUM CHLORIDE 100 ML IVPB SCH ×3 (01:58→17:11)
[2018-04-07] MEDS ORDERED: PT OWN MED DRAWER 7, Y5N ONE (06:22)
[2018-04-07] MEDS: guaiFENesin 200 MG/10 ML 10 ML UNIT-DOSE CUPS PO PRN ×2 (06:26→17:12)
[2018-04-07] MEDS: INSULIN SLIDING SCALE (NOVOLOG) 1 VIAL SQ SCH ×4 (06:26→21:51)
[2018-04-07] MEDS: HEPARIN NA (PORCINE) 5,000 UNITS/ML 1ML VIAL SQ SCH ×2 (09:51→21:47)
[2018-04-07] MEDS: COLLAGENASE CLOSTRIDIUM HIST. 30 GRAMS TUBE TP SCH (10:00)
--- NOTE | 2018-04-07 16:58 | PN ---
Progress Note, Physician - Current Medication List Current Medications: Active Medications Acetaminophen (Tylenol -) 650 mg PO Q6H PRN PRN Reason: FEVER Collagenase (Santyl -) 1 applic TP DAILY [facility]; Protocol Last Admin: 04/07/18 10:00 Dose: 1 applic Guaifenesin (Robitussin -) 10 ml PO Q6H PRN PRN Reason: COUGH Last Admin: 04/07/18 06:26 Dose: 10 ml Heparin Sodium (Porcine) (Heparin -) 5,000 unit SQ BID [facility] Last Admin: 04/07/18 09:51 Dose: Not Given Ampicillin Sodium/Sulbactam (Sodium 3 gm/ Sodium Chloride) 100 mls @ 200 mls/ hr IVPB Q8H-IV [facility] Last Admin: 04/07/18 09:59 Dose: 200 mls/hr Insulin Aspart (Novolog Vial Sliding Scale -) 1 vial SQ ACHS [facility]; Protocol Last Admin: 04/07/18 10:57 Dose: 4 units - Objective Vital Signs: Vital Signs Temperature 98.8 F 04/07/18 15:22 Pulse Rate 78 04/07/18 15:22 Respiratory Rate 20 04/07/18 15:22 Blood Pressure 140/67 04/07/18 15:22 O2 Sat by Pulse Oximetry (%) 97 04/07/18 09:00 Constitutional: Yes: No Distress HENT: Yes: Atraumatic Neck: Yes: Supple Cardiovascular: Yes: Regular Rate and Rhythm Respiratory: Yes: CTA Bilaterally Gastrointestinal: Yes: Normal Bowel Sounds Extremities: Yes: Other (R foot cellulitis) Neurological: Yes: Alert, Oriented Labs: CBC, BMP 04/04/18 06:30 04/04/18 06:30 INR, PTT INR 0.96 (0.83-1.09) 04/03/18 17:50 Problem List - Problems (1) Wound of foot Assessment/Plan: iv abx id consult dr duque consult Code(s): S91.309A - UNSPECIFIED OPEN WOUND, UNSPECIFIED FOOT, INITIAL ENCOUNTER (2) Diabetic foot ulcer Code(s): E11.621 - TYPE 2 DIABETES MELLITUS WITH FOOT ULCER; L97.509 - NON- PRESSURE CHRONIC ULCER OTH PRT UNSP FOOT W UNSP SEVERITY Qualifiers: (3) HTN (hypertension) Assessment/Plan: on meds stable Code(s): I10 - ESSENTIAL (PRIMARY) HYPERTENSION Qualifiers: (4) Diabetes mellitus Code(s): E11.9 - TYPE 2 DIABETES MELLITUS WITHOUT COMPLICATIONS
--- NOTE | 2018-04-07 18:05 | PN ---
Progress Note, Physician History of Present Illness: Pt is alert, afebrile. States his right leg feels better. Tolerating antibiotics. Has no specific complaints. - Current Medication List Current Medications: Active Medications Acetaminophen (Tylenol -) 650 mg PO Q6H PRN PRN Reason: FEVER Collagenase (Santyl -) 1 applic TP DAILY [facility]; Protocol Last Admin: 04/07/18 10:00 Dose: 1 applic Guaifenesin (Robitussin -) 10 ml PO Q6H PRN PRN Reason: COUGH Last Admin: 04/07/18 17:12 Dose: 10 ml Heparin Sodium (Porcine) (Heparin -) 5,000 unit SQ BID [facility] Last Admin: 04/07/18 09:51 Dose: Not Given Ampicillin Sodium/Sulbactam (Sodium 3 gm/ Sodium Chloride) 100 mls @ 200 mls/ hr IVPB Q8H-IV [facility] Last Admin: 04/07/18 17:11 Dose: 200 mls/hr Insulin Aspart (Novolog Vial Sliding Scale -) 1 vial SQ ACHS [facility]; Protocol Last Admin: 04/07/18 16:59 Dose: 2 units - Objective Vital Signs: Vital Signs Temperature 98.8 F 04/07/18 15:22 Pulse Rate 78 04/07/18 15:22 Respiratory Rate 20 04/07/18 15:22 Blood Pressure 140/67 04/07/18 15:22 O2 Sat by Pulse Oximetry (%) 97 04/07/18 09:00 Constitutional: Yes: No Distress, Calm Cardiovascular: Yes: Regular Rate and Rhythm Respiratory: Yes: Regular Gastrointestinal: Yes: Normal Bowel Sounds, Soft, Abdomen, Obese Extremities: Yes: Erythema (RLE edema/warmth/erythema, no tenderness) Neurological: Yes: Alert, Oriented Labs: CBC, BMP 04/04/18 06:30 04/04/18 06:30 INR, PTT INR 0.96 (0.83-1.09) 04/03/18 17:50 Problem List - Problems (1) Cellulitis of right leg Code(s): L03.115 - CELLULITIS OF RIGHT LOWER LIMB (2) Diabetic foot ulcer Code(s): E11.621 - TYPE 2 DIABETES MELLITUS WITH FOOT ULCER; L97.509 - NON- PRESSURE CHRONIC ULCER OTH PRT UNSP FOOT W UNSP SEVERITY Qualifiers: (3) HTN (hypertension) Code(s): I10 - ESSENTIAL (PRIMARY) HYPERTENSION Qualifiers: (4) Diabetes mellitus Code(s): E11.9 - TYPE 2 DIABETES MELLITUS WITHOUT COMPLICATIONS Assessment/Plan Rt foot wound infection/cellulitis DM appears to be improving continue IV antibiotics for now, plan to switch to augmentin if continues to improve continue wound care glycemic control
[2018-04-08] MEDS: AMPICILLIN NA/SULBACTAM NA 3 GM in SODIUM CHLORIDE 100 ML IVPB SCH ×3 (01:38→17:58)
[2018-04-08] MEDS: INSULIN SLIDING SCALE (NOVOLOG) 1 VIAL SQ SCH ×4 (06:07→21:12)
[2018-04-08] MEDS: HEPARIN NA (PORCINE) 5,000 UNITS/ML 1ML VIAL SQ SCH ×3 (09:14→21:14)
[2018-04-08] MEDS: guaiFENesin 200 MG/10 ML 10 ML UNIT-DOSE CUPS PO PRN ×2 (09:14→21:57)
[2018-04-08] MEDS: COLLAGENASE CLOSTRIDIUM HIST. 30 GRAMS TUBE TP SCH (09:14)
--- NOTE | 2018-04-08 12:06 | PN ---
Progress Note, Physician History of Present Illness: stable leg doing well no complaints - Current Medication List Current Medications: Active Medications Acetaminophen (Tylenol -) 650 mg PO Q6H PRN PRN Reason: FEVER Collagenase (Santyl -) 1 applic TP DAILY [facility]; Protocol Last Admin: 04/08/18 09:14 Dose: 1 applic Guaifenesin (Robitussin -) 10 ml PO Q6H PRN PRN Reason: COUGH Last Admin: 04/08/18 09:14 Dose: 10 ml Heparin Sodium (Porcine) (Heparin -) 5,000 unit SQ BID [facility] Last Admin: 04/08/18 09:14 Dose: Not Given Ampicillin Sodium/Sulbactam (Sodium 3 gm/ Sodium Chloride) 100 mls @ 200 mls/ hr IVPB Q8H-IV [facility] Last Admin: 04/08/18 09:14 Dose: 200 mls/hr Insulin Aspart (Novolog Vial Sliding Scale -) 1 vial SQ ACHS [facility]; Protocol Last Admin: 04/08/18 11:19 Dose: 2 units - Objective Vital Signs: Vital Signs Temperature 98.5 F 04/08/18 08:47 Pulse Rate 83 04/08/18 08:47 Respiratory Rate 20 04/08/18 08:47 Blood Pressure 151/72 04/08/18 08:47 O2 Sat by Pulse Oximetry (%) 97 04/07/18 21:00 Constitutional: Yes: No Distress, Calm Cardiovascular: Yes: Regular Rate and Rhythm Respiratory: Yes: Regular, CTA Bilaterally Gastrointestinal: Yes: Normal Bowel Sounds, Soft Musculoskeletal: Yes: WNL Extremities: Yes: Other Integumentary: Yes: Erythema (resolving) Neurological: Yes: Alert, Oriented Psychiatric: Yes: Alert, Oriented Labs: CBC, BMP 04/04/18 06:30 04/04/18 06:30 INR, PTT INR 0.96 (0.83-1.09) 04/03/18 17:50 Assessment/Plan Problem List - Problems (1) Wound of foot Code(s): S91.309A - UNSPECIFIED OPEN WOUND, UNSPECIFIED FOOT, INITIAL ENCOUNTER (2) Diabetic foot ulcer Code(s): E11.621 - TYPE 2 DIABETES MELLITUS WITH FOOT ULCER; L97.509 - NON- PRESSURE CHRONIC ULCER OTH PRT UNSP FOOT W UNSP SEVERITY Qualifiers: (3) HTN (hypertension) Code(s): I10 - ESSENTIAL (PRIMARY) HYPERTENSION Qualifiers: (4) Diabetes mellitus Code(s): E11.9 - TYPE 2 DIABETES MELLITUS WITHOUT COMPLICATIONS plan continue abx will switch to oral abx tomorrow continue wound care rest as per the team
[2018-04-08 14:50] VITALS: PULSE 78
--- NOTE | 2018-04-08 17:47 | PN ---
Progress Note, Physician - Current Medication List Current Medications: Active Medications Acetaminophen (Tylenol -) 650 mg PO Q6H PRN PRN Reason: FEVER Collagenase (Santyl -) 1 applic TP DAILY [facility]; Protocol Last Admin: 04/08/18 09:14 Dose: 1 applic Guaifenesin (Robitussin -) 10 ml PO Q6H PRN PRN Reason: COUGH Last Admin: 04/08/18 09:14 Dose: 10 ml Heparin Sodium (Porcine) (Heparin -) 5,000 unit SQ BID [facility] Last Admin: 04/08/18 09:14 Dose: Not Given Ampicillin Sodium/Sulbactam (Sodium 3 gm/ Sodium Chloride) 100 mls @ 200 mls/ hr IVPB Q8H-IV [facility] Last Admin: 04/08/18 09:14 Dose: 200 mls/hr Insulin Aspart (Novolog Vial Sliding Scale -) 1 vial SQ ACHS [facility]; Protocol Last Admin: 04/08/18 16:47 Dose: 2 units - Objective Vital Signs: Vital Signs Temperature 98.5 F 04/08/18 14:48 Pulse Rate 78 04/08/18 14:48 Respiratory Rate 20 04/08/18 14:48 Blood Pressure 149/86 04/08/18 14:48 O2 Sat by Pulse Oximetry (%) 98 04/08/18 09:00 Constitutional: Yes: No Distress HENT: Yes: Atraumatic Neck: Yes: Supple Cardiovascular: Yes: Regular Rate and Rhythm Respiratory: Yes: CTA Bilaterally Gastrointestinal: Yes: Normal Bowel Sounds Extremities: Yes: Other (R foot cellulitis) Edema: Yes Edema: RLE: Trace Neurological: Yes: Alert, Oriented Labs: CBC, BMP 04/04/18 06:30 04/04/18 06:30 INR, PTT INR 0.96 (0.83-1.09) 04/03/18 17:50 Problem List - Problems (1) Wound of foot Assessment/Plan: iv abx id consult vascular consult reviewed Code(s): S91.309A - UNSPECIFIED OPEN WOUND, UNSPECIFIED FOOT, INITIAL ENCOUNTER (2) Diabetic foot ulcer Code(s): E11.621 - TYPE 2 DIABETES MELLITUS WITH FOOT ULCER; L97.509 - NON- PRESSURE CHRONIC ULCER OTH PRT UNSP FOOT W UNSP SEVERITY Qualifiers: (3) HTN (hypertension) Assessment/Plan: on meds stable Code(s): I10 - ESSENTIAL (PRIMARY) HYPERTENSION Qualifiers: (4) Diabetes mellitus Assessment/Plan: blood sugars are controlled Code(s): E11.9 - TYPE 2 DIABETES MELLITUS WITHOUT COMPLICATIONS
[2018-04-08] MEDS ORDERED: INSULIN (NOVOLOG) ASPART 100 UNITS/ML 10ML VIAL ONE (21:10)
[2018-04-09] MEDS ORDERED: PT OWN MED DRAWER 7, Y5N ONE ×2 (00:17→10:02)
[2018-04-09] MEDS: AMPICILLIN NA/SULBACTAM NA 3 GM in SODIUM CHLORIDE 100 ML IVPB SCH ×2 (01:15→10:20)
[2018-04-09] MEDS: INSULIN SLIDING SCALE (NOVOLOG) 1 VIAL SQ SCH ×2 (06:27→11:35)
[2018-04-09] MEDS ORDERED: INSULIN (NOVOLOG) ASPART 100 UNITS/ML 10ML VIAL ONE ×2 (06:53→12:06)
[2018-04-09] MEDS: guaiFENesin 200 MG/10 ML 10 ML UNIT-DOSE CUPS PO PRN (06:55)
[2018-04-09] MEDS: HEPARIN NA (PORCINE) 5,000 UNITS/ML 1ML VIAL SQ SCH (11:13)
[2018-04-09] MEDS: COLLAGENASE CLOSTRIDIUM HIST. 30 GRAMS TUBE TP SCH (11:21)
--- NOTE | 2018-04-09 13:08 | PN ---
Progress Note, Physician History of Present Illness: doing well no new issues leg looks good erythema resolved - Current Medication List Current Medications: Active Medications Acetaminophen (Tylenol -) 650 mg PO Q6H PRN PRN Reason: FEVER Collagenase (Santyl -) 1 applic TP DAILY [facility]; Protocol Last Admin: 04/09/18 11:21 Dose: 1 applic Guaifenesin (Robitussin -) 10 ml PO Q6H PRN PRN Reason: COUGH Last Admin: 04/09/18 06:55 Dose: 10 ml Heparin Sodium (Porcine) (Heparin -) 5,000 unit SQ BID [facility] Last Admin: 04/09/18 11:13 Dose: Not Given Ampicillin Sodium/Sulbactam (Sodium 3 gm/ Sodium Chloride) 100 mls @ 200 mls/ hr IVPB Q8H-IV [facility] Last Admin: 04/09/18 10:20 Dose: 200 mls/hr Insulin Aspart (Novolog Vial Sliding Scale -) 1 vial SQ ACHS [facility]; Protocol Last Admin: 04/09/18 11:35 Dose: 4 units - Objective Vital Signs: Vital Signs Temperature 98.6 F 04/09/18 05:57 Pulse Rate 78 04/09/18 05:57 Respiratory Rate 20 04/09/18 05:57 Blood Pressure 140/79 04/09/18 05:57 O2 Sat by Pulse Oximetry (%) 98 04/08/18 21:00 Constitutional: Yes: No Distress, Calm Cardiovascular: Yes: Regular Rate and Rhythm Respiratory: Yes: Regular, CTA Bilaterally Gastrointestinal: Yes: Normal Bowel Sounds, Soft Musculoskeletal: Yes: WNL Extremities: Yes: Other Integumentary: Yes: Erythema Neurological: Yes: Alert, Oriented Psychiatric: Yes: Alert, Oriented Labs: CBC, BMP 04/04/18 06:30 04/04/18 06:30 INR, PTT INR 0.96 (0.83-1.09) 04/03/18 17:50 Assessment/Plan Problem List - Problems (1) Wound of foot Code(s): S91.309A - UNSPECIFIED OPEN WOUND, UNSPECIFIED FOOT, INITIAL ENCOUNTER (2) Diabetic foot ulcer Code(s): E11.621 - TYPE 2 DIABETES MELLITUS WITH FOOT ULCER; L97.509 - NON- PRESSURE CHRONIC ULCER OTH PRT UNSP FOOT W UNSP SEVERITY Qualifiers: (3) HTN (hypertension) Code(s): I10 - ESSENTIAL (PRIMARY) HYPERTENSION Qualifiers: (4) Diabetes mellitus Code(s): E11.9 - TYPE 2 DIABETES MELLITUS WITHOUT COMPLICATIONS plan switched to oral abx augmentin for 5 more days foot care rest as per the team
--- NOTE | 2018-04-09 15:30 | DS ---
Physical Examination Vital Signs: Vital Signs Temperature 98.6 F 04/09/18 05:57 Pulse Rate 78 04/09/18 05:57 Respiratory Rate 20 04/09/18 05:57 Blood Pressure 140/79 04/09/18 05:57 O2 Sat by Pulse Oximetry (%) 98 04/08/18 21:00 Constitutional: Yes: No Distress HENT: Yes: Atraumatic Neck: Yes: Supple Cardiovascular: Yes: Regular Rate and Rhythm Respiratory: Yes: CTA Bilaterally Gastrointestinal: Yes: Normal Bowel Sounds Extremities: Yes: Other (R foot cellulitis improving) Edema: Yes Edema: RLE: 1+ (foot) Neurological: Yes: Alert, Oriented Labs: CBC, BMP 04/04/18 06:30 04/04/18 06:30 Discharge Summary Reason For Visit: DIABETIC FOOT ULCER Current Active Problems Wound of foot (Acute) - Instructions Referrals: Ray Cisneros MD [Primary Care Provider] - Disposition: HOME - Home Medications Comprehensive Discharge Medication List: Ambulatory Orders Insulin Pump Cartridge [T:Flex] 1 each SQ [facility] 04/25/16 Amox-Tr/K Cl [Augmentin 875-125mg Tablet -] 1 tab PO BID@0800,1730 #10 tablet DC HOME FU PMD/WOUND CARE/ID
[2018-04-09 15:54] VITALS: BP 177/88; TEMP 98.7
[2018-04-09] MEDS ORDERED: AMOX TR/POT CLAV 875MG/125MG TABLETS (FP) PO SCH (17:30)
== END 2018-04-09 18:08 | disposition home or self-care (01) | DRG 638 ==
LOC: JER 14:10 → JERBED 17:10 → J6S 04-04 14:13 → JSAMEDAYSX 04-08 12:26 → J6S 04-08 12:27
PROVIDERS: ADMIT Internal Medicine; ATTEND Internal Medicine
DX: E11.621 Type 2 diabetes mellitus with foot ulcer (principal); L97.419 Non-pressure chronic ulcer of right heel and midfoot with unspecified severity; L03.115 Cellulitis of right lower limb; Z68.43 Body mass index [BMI] 50.0-59.9, adult; Z96.41 Presence of insulin pump (external) (internal); I10 Essential (primary) hypertension; E66.9 Obesity, unspecified; Z89.421 Acquired absence of other right toe(s); Z89.432 Acquired absence of left foot
CPT/HCPCS: 36415; 71045-TC-FY; 73630-TC-RT-FY; 73718-TC; 80053; 82962; 85025; 85610; 86850; 86900; 86901; 87040; 87081; 93005; 93010; 99285-25; J1644

== ENCOUNTER 2021-12-29 04:05 | Day surgery (SDC) | payer OTHER ==
[2021-12-23 11:18] VITALS: BMI 32.8
[2021-12-29] MEDS ORDERED: HEPARIN NA (PORCINE) 5,000 UNITS/ML 1ML VIAL ONE (08:22)
[2021-12-29] MEDS ORDERED: LIDOCAINE HCL 1%, 10 MG/ML (20ML VIAL) ONE (08:22)
[2021-12-29] MEDS ORDERED: LIDOCAINE HCL 1%, 10 MG/ML (20ML VIAL) NR ONE ×2 (08:37→10:04)
[2021-12-29] MEDS ORDERED: HEPARIN NA (PORCINE) 5,000 UNITS/ML 1ML VIAL SQ ONE ×2 (08:38→10:05)
[2021-12-29] MEDS ORDERED: KETAMINE HCL 200 MG/20 ML VIAL ONE (09:47)
[2021-12-29] MEDS ORDERED: MIDAZOLAM HCL 2 MG/2 ML SINGLE DOSE VIAL ONE (09:47)
[2021-12-29] MEDS ORDERED: ceFAZolin SODIUM 1 GM VIAL IVPB ONE (09:56)
[2021-12-29] MEDS ORDERED: CLOPIDOGREL BISULFATE 75 MG TABLET (FP) PO ONE (11:00)
[2021-12-29] MEDS ORDERED: CLOPIDOGREL BISULFATE 75 MG TABLET (FP) ONE (12:09)
[2021-12-29 12:40] VITALS: TEMP 98.6
[2021-12-29 14:11] VITALS: BP 126/73; PULSE 75
== END 2021-12-29 13:30 | disposition home or self-care (01) ==
LOC: JASU-SURG 04:05
PROVIDERS: ATTEND Surgery Vascular Surgery
PROC: 047S3ZZ Dilation of Left Posterior Tibial Artery, Percutaneous Approach (ICD-10-PCS; 2021-12-29)
PROC: B41DYZZ Fluoroscopy of Aorta and Bilateral Lower Extremity Arteries using Other Contrast (ICD-10-PCS; 2021-12-29)
PROC: 047Q3ZZ Dilation of Left Anterior Tibial Artery, Percutaneous Approach (ICD-10-PCS; principal; 2021-12-29 09:00)
DX: E11.621 Type 2 diabetes mellitus with foot ulcer (principal); L97.529 Non-pressure chronic ulcer of other part of left foot with unspecified severity; Y83.5 Amputation of limb(s) as the cause of abnormal reaction of the patient, or of later complication, without mention of misadventure at the time of the procedure; Y92.9 Unspecified place or not applicable; I70.292 Other atherosclerosis of native arteries of extremities, left leg; Z79.4 Long term (current) use of insulin
CPT/HCPCS: 37229; 37232; C1885; 76000-TC-FY; 82962; 94760; J1644

== ENCOUNTER 2022-02-07 15:11 | Inpatient (IN) | payer OTHER ==
[2022-02-07] MEDS ORDERED: MAGNESIUM 1GM/D5W - 1 GM/100 ML IVPB IVPB ONE ×2 (15:16→15:47)
[2022-02-07] MEDS ORDERED: methylPREDNISolone NA SUCC 125 MG/2 ML VIAL ONE (15:16)
[2022-02-07] MEDS ORDERED: DEXAMETHASONE SOD PHOSPHATE 10 MG/1 ML VIAL ONE (15:20)
[2022-02-07] MEDS ORDERED: ALBUTEROL SO4 2.5/IPRATROPIUM 0.5 INH SOL 3 ML VIAL.NEB. NEB ONE (15:28)
[2022-02-07] MEDS ORDERED: methylPREDNISolone NA SUCC 125 MG/2 ML VIAL IVPUSH SCH (15:30)
[2022-02-07] MEDS ORDERED: FUROSEMIDE 40 MG/4 ML INJECTABLE VIAL IVPUSH ONE (15:37)
[2022-02-07] MEDS: ALBUTEROL SO4 2.5/IPRATROPIUM 0.5 INH SOL 3 ML VIAL.NEB. NEB SCH ×4 (15:41→16:33)
[2022-02-07] MEDS ORDERED: FUROSEMIDE 40 MG/4 ML INJECTABLE VIAL ONE (15:42)
[2022-02-07] MEDS ORDERED: MAGNESIUM SULF 50% (8.12 MEQ/2 ML-1 GM VIAL) IVPB ONE (15:47)
[2022-02-07] MEDS ORDERED: ERYTHROMYCIN *INJECTION* 500 MG VIAL IVPB ONE (15:51)
[2022-02-07] MEDS ORDERED: AMPICILLIN - 2 GM in SODIUM CHLORIDE 100 ML IVPB ONE (15:53)
[2022-02-07 16:24] LABS: BASO % 1.1 % (0-2.0); EOS % 2.4 % (0-4.5); HEMATOCRIT 38.9 % (35.4-49); HEMOGLOBIN 12.9 GM/dL (11.7-16.9); LYMPH % 24.3 % (8-40); MCH 29.3 pg (25.7-33.7); MCHC 33.1 g/dl (32.0-35.9); MEAN CELL VOLUME 88.5 fl (80-96); MEAN PLT VOLUME 8.7 fl (7.5-11.1); NEUT % 65.2 % (42.8-82.8); PLATELET COUNT 330 10^3/uL (134-434); WHITE BLOOD COUNT 8.4 K/mm3 (4.0-10.0)
[2022-02-07 16:35] LABS: INR 1.03 (0.83-1.09); PROTHROMBIN TIME (PATIENT) 11.9 SEC (9.7-13.0)
[2022-02-07 16:36] LABS: ACTIVATED PTT 26.4 SECONDS (25.2-36.5)
[2022-02-07 16:37] LABS: CHLORIDE 96 mmol/L (98-107); SODIUM 132 mmol/L (136-145)
[2022-02-07 16:38] LABS: CALCIUM 8.6 mg/dL (8.5-10.1)
[2022-02-07 16:39] LABS: ALBUMIN 3.5 g/dl (3.4-5.0); ANION GAP 7 MMOL/L (8-16); BLOOD UREA NITROGEN 14.4 mg/dL (7-18); CO2 30 mmol/L (21-32); GLUCOSE,RANDOM 200 mg/dL (74-106)
[2022-02-07 16:40] LABS: MAGNESIUM 2.2 mg/dL (1.8-2.4)
[2022-02-07 16:42] VITALS: BMI 36.0
[2022-02-07 16:42] LABS: CREATININE 0.9 mg/dL (0.55-1.3); SGOT/AST 24 U/L (15-37); SGPT/ALT 17 U/L (13-61)
[2022-02-07 16:44] LABS: BILIRUBIN,TOTAL 0.7 mg/dL (0.2-1); TOT PROT 7.6 g/dl (6.4-8.2)
[2022-02-07 16:45] LABS: ALK PHOS 116 U/L (45-117)
[2022-02-07 16:48] LABS: N-TERMINAL BNP 731.7 pg/ml (5-125)
[2022-02-07] MEDS ORDERED: ASPIRIN 81 MG CHEWABLE TABLETS ONE (16:55)
[2022-02-07] MEDS ORDERED: CLOPIDOGREL BISULFATE 300 MG TABLET PO ONE (17:26)
[2022-02-07] MEDS ORDERED: HEPARIN NA (PORCINE) 5,000 UNITS/ML 1ML VIAL IVPUSH PRN ×2 (17:29)
[2022-02-07] MEDS ORDERED: CLOPIDOGREL BISULFATE 300 MG TABLET ONE (17:48)
[2022-02-07] MEDS ORDERED: HEPARIN INFUSION - 25,000 UNITS/500 ML INFUS.BAG IVPB ONE (17:49)
[2022-02-07] MEDS ORDERED: ATORVASTATIN CA 80 MG TABLET (FP) PO ONE (18:19)
[2022-02-07] MEDS: HEPARIN SOD,PORK IN 0.45% NACL 25,000 UNITS/500 ML INFUS.BAG IVPB SCH (18:27)
[2022-02-07] MEDS ORDERED: ATORVASTATIN CA 80 MG TABLET (FP) ONE (20:08)
[2022-02-07] MEDS ORDERED: metoPROLOL SUCCINATE 25 MG TAB.SR.24H (FP) PO ONE (21:51)
[2022-02-07] MEDS ORDERED: metoPROLOL SUCCINATE 25 MG TAB.SR.24H (FP) PO SCH (22:00)
[2022-02-08 03:16] LABS: URINE APPEARANCE CLEAR; URINE BILIRUBIN NEGATIVE (NEGATIVE); URINE COLOR YELLOW; URINE GLUCOSE (UA) 3+ (NEGATIVE); URINE KETONE 2+ (NEGATIVE); URINE LEUK ESTERASE NEGATIVE (NEGATIVE); URINE NITRITE NEGATIVE (NEGATIVE); URINE PROTEIN NEGATIVE (NEGATIVE); URINE UROBILINOGEN 0.2 mg/dL (0.2-1.0)
[2022-02-08] MEDS: FUROSEMIDE 40 MG/4 ML INJECTABLE VIAL IVPUSH SCH ×2 (06:33→13:38)
[2022-02-08] MEDS: INSULIN SLIDING SCALE (NOVOLOG) 1 VIAL SQ SCH ×4 (06:45→21:20)
[2022-02-08 07:01] LABS: HEMATOCRIT 37.1 % (35.4-49); HEMOGLOBIN 12.3 GM/dL (11.7-16.9); MCH 29.4 pg (25.7-33.7); MCHC 33.2 g/dl (32.0-35.9); MEAN CELL VOLUME 88.5 fl (80-96); MEAN PLT VOLUME 8.7 fl (7.5-11.1); PLATELET COUNT 287 10^3/uL (134-434); RBC 4.19 M/mm3 (4.00-5.60); RDW 14.9 % (11.9-15.9); WHITE BLOOD COUNT 6.7 K/mm3 (4.0-10.0)
[2022-02-08 07:25] LABS: ALBUMIN 3.2 g/dl (3.4-5.0); BLOOD UREA NITROGEN 17.6 mg/dL (7-18); CALCIUM 8.1 mg/dL (8.5-10.1); MAGNESIUM 2.3 mg/dL (1.8-2.4)
[2022-02-08 07:27] LABS: CHOLESTEROL 204 mg/dL (50-200); TRIGLYCERIDES 56 mg/dL (0-150)
[2022-02-08 07:28] LABS: CREATININE 0.9 mg/dL (0.55-1.3); LDL CHOLESTEROL (ONLY SJRH) 130 mg/dL (5-100); PHOSPHOROUS 3.6 mg/dL (2.5-4.9)
[2022-02-08 07:30] LABS: TOT PROT 6.9 g/dl (6.4-8.2)
[2022-02-08 07:31] LABS: HDL CHOLESTEROL 70 mg/dL (40-60)
[2022-02-08] MEDS: LOSARTAN POTASSIUM 50 MG TABLET PO SCH (09:59)
[2022-02-08] MEDS: ASPIRIN COATED 81 MG TABLET.EC PO SCH (09:59)
[2022-02-08] MEDS ORDERED: ASPIRIN 81 MG CHEWABLE TABLETS PO SCH (10:00)
[2022-02-08] MEDS: METOPROLOL TARTRATE 25 MG TABLET (FP) PO SCH ×2 (10:00→21:19)
[2022-02-08] MEDS ORDERED: metoPROLOL SUCCINATE 25 MG TAB.SR.24H (FP) PO SCH (10:00)
[2022-02-08] MEDS ORDERED: LOSARTAN POTASSIUM 50 MG TABLET PO SCH (10:00)
[2022-02-08] MEDS: CLOPIDOGREL BISULFATE 75 MG TABLET (FP) PO SCH (10:00)
[2022-02-08 10:11] VITALS: RESP 18
[2022-02-08] MEDS: HEPARIN SOD,PORK IN 0.45% NACL 25,000 UNITS/500 ML INFUS.BAG IVPB SCH (17:45)
[2022-02-08] MEDS: ATORVASTATIN CA 40 MG TABLET (FP) PO SCH (21:19)
[2022-02-08] MEDS: INSULIN (LEVEMIR) 100 UNITS/ML UNITS SQ SCH (21:19)
[2022-02-09] MEDS: INSULIN SLIDING SCALE (NOVOLOG) 1 VIAL SQ SCH ×4 (06:44→22:48)
[2022-02-09] MEDS: FUROSEMIDE 40 MG/4 ML INJECTABLE VIAL IVPUSH SCH ×2 (06:44→13:57)
[2022-02-09] MEDS: INSULIN (LEVEMIR) 100 UNITS/ML UNITS SQ SCH ×2 (06:44→22:49)
[2022-02-09] MEDS: INSULIN (NOVOLOG) ASPART 100 UNITS/ML 10ML VIAL SQ SCH ×3 (06:45→17:04)
[2022-02-09 08:18] LABS: HEMATOCRIT 35.2 % (35.4-49); HEMOGLOBIN 11.8 GM/dL (11.7-16.9); MCH 29.5 pg (25.7-33.7); MCHC 33.6 g/dl (32.0-35.9); PLATELET COUNT 263 10^3/uL (134-434); WHITE BLOOD COUNT 9.7 K/mm3 (4.0-10.0)
[2022-02-09 09:13] LABS: ALBUMIN 3.2 g/dl (3.4-5.0); CALCIUM 8.5 mg/dL (8.5-10.1)
[2022-02-09 09:14] LABS: BLOOD UREA NITROGEN 25.2 mg/dL (7-18); MAGNESIUM 2.4 mg/dL (1.8-2.4)
[2022-02-09 09:16] LABS: PHOSPHOROUS 2.6 mg/dL (2.5-4.9)
[2022-02-09 09:18] LABS: BILIRUBIN,TOTAL 0.8 mg/dL (0.2-1); TOT PROT 6.8 g/dl (6.4-8.2)
[2022-02-09] MEDS: LOSARTAN POTASSIUM 50 MG TABLET PO SCH (09:50)
[2022-02-09] MEDS: ASPIRIN COATED 81 MG TABLET.EC PO SCH (09:50)
[2022-02-09] MEDS: CLOPIDOGREL BISULFATE 75 MG TABLET (FP) PO SCH (09:50)
[2022-02-09] MEDS: METOPROLOL TARTRATE 25 MG TABLET (FP) PO SCH ×2 (09:50→22:35)
[2022-02-09] MEDS: HEPARIN SOD,PORK IN 0.45% NACL 25,000 UNITS/500 ML INFUS.BAG IVPB SCH (17:06)
[2022-02-09] MEDS: ATORVASTATIN CA 40 MG TABLET (FP) PO SCH (22:35)
[2022-02-10 04:47] VITALS: BP 120/69; TEMP 98.7
[2022-02-10] MEDS: FUROSEMIDE 40 MG/4 ML INJECTABLE VIAL IVPUSH SCH (05:58)
[2022-02-10] MEDS: INSULIN (LEVEMIR) 100 UNITS/ML UNITS SQ SCH (06:09)
[2022-02-10] MEDS: INSULIN SLIDING SCALE (NOVOLOG) 1 VIAL SQ SCH ×2 (07:17→12:05)
[2022-02-10] MEDS: INSULIN (NOVOLOG) ASPART 100 UNITS/ML 10ML VIAL SQ SCH ×2 (07:19→12:05)
[2022-02-10 07:51] VITALS: PULSE 81
[2022-02-10 08:17] LABS: HEMATOCRIT 34.9 % (35.4-49); HEMOGLOBIN 11.6 GM/dL (11.7-16.9); MCH 29.1 pg (25.7-33.7); MCHC 33.2 g/dl (32.0-35.9); MEAN CELL VOLUME 87.7 fl (80-96); MEAN PLT VOLUME 8.8 fl (7.5-11.1); PLATELET COUNT 277 10^3/uL (134-434); RBC 3.98 M/mm3 (4.00-5.60); RDW 15.4 % (11.9-15.9)
[2022-02-10 08:29] LABS: CALCIUM 8.3 mg/dL (8.5-10.1)
[2022-02-10 08:33] LABS: CREATININE 0.9 mg/dL (0.55-1.3)
[2022-02-10] MEDS: LOSARTAN POTASSIUM 50 MG TABLET PO SCH (09:59)
[2022-02-10] MEDS: METOPROLOL TARTRATE 25 MG TABLET (FP) PO SCH (10:00)
[2022-02-10] MEDS: CLOPIDOGREL BISULFATE 75 MG TABLET (FP) PO SCH (10:00)
[2022-02-10] MEDS: ASPIRIN COATED 81 MG TABLET.EC PO SCH (10:00)
== END 2022-02-10 14:24 | disposition left against medical advice (07) | DRG 280 ==
LOC: JER 15:11 → JERBED 18:22 → J4W 22:11
PROVIDERS: ADMIT Internal Medicine; ATTEND Internal Medicine
DX: I21.4 Non-ST elevation (NSTEMI) myocardial infarction (principal); I50.23 Acute on chronic systolic (congestive) heart failure; E87.1 Hypo-osmolality and hyponatremia; E11.65 Type 2 diabetes mellitus with hyperglycemia; I11.0 Hypertensive heart disease with heart failure; E11.51 Type 2 diabetes mellitus with diabetic peripheral angiopathy without gangrene; E66.9 Obesity, unspecified; Z68.39 Body mass index [BMI] 39.0-39.9, adult; F17.210 Nicotine dependence, cigarettes, uncomplicated; Z89.422 Acquired absence of other left toe(s)
CPT/HCPCS: 36415; 71045-TC-FY; 76937; 80048; 80053; 80061; 81003; 82272; 82962; 83036; 83605; 83735; 83880; 84100; 84436; 84443; 84484; 85025; 85027; 85610; 85730; 87040; 87077; 87086; 93005; 93010; 93306-TC; 94660; 97116-GP; 97162-GP; 99291; C9803-CS; J1644; U0003; U0005

== ENCOUNTER 2022-03-06 06:56 | Inpatient (IN) | payer OTHER ==
[2022-03-06 07:19] VITALS: BMI 41.1
[2022-03-06] MEDS ORDERED: NITROGLYCERIN 2% OINTMENT - 1GM PACKET TD ONE ×2 (07:29→07:33)
[2022-03-06] MEDS ORDERED: NITROGLYCERIN SUBLINGUAL 1/200 0.3 MG BTL SL ONE (07:31)
[2022-03-06] MEDS ORDERED: FUROSEMIDE 40 MG/4 ML INJECTABLE VIAL IVPUSH ONE (07:35)
[2022-03-06] MEDS ORDERED: FUROSEMIDE 40 MG/4 ML INJECTABLE VIAL ONE ×2 (07:48→16:07)
[2022-03-06] MEDS ORDERED: ALBUTEROL SO4 2.5/IPRATROPIUM 0.5 INH SOL 3 ML VIAL.NEB. NEB ONE (07:48)
[2022-03-06] MEDS: ALBUTEROL SO4 2.5/IPRATROPIUM 0.5 INH SOL 3 ML VIAL.NEB. NEB SCH ×2 (07:55→07:56)
[2022-03-06 08:00] LABS: BASO % 0.9 % (0-2.0); EOS % 2.4 % (0-4.5); HEMATOCRIT 38.5 % (35.4-49); HEMOGLOBIN 12.4 GM/dL (11.7-16.9); MCH 28.9 pg (25.7-33.7); MCHC 32.2 g/dl (32.0-35.9); MEAN CELL VOLUME 89.8 fl (80-96); MEAN PLT VOLUME 8.5 fl (7.5-11.1); MONO % 6.7 % (3.8-10.2); PLATELET COUNT 289 10^3/uL (134-434); RBC 4.29 M/mm3 (4.00-5.60); WHITE BLOOD COUNT 6.8 K/mm3 (4.0-10.0)
[2022-03-06 08:11] LABS: INR 1.03 (0.83-1.09); PROTHROMBIN TIME (PATIENT) 11.9 SEC (9.7-13.0)
[2022-03-06 08:19] LABS: ALBUMIN 3.3 g/dl (3.4-5.0); BLOOD UREA NITROGEN 13.3 mg/dL (7-18); CALCIUM 8.4 mg/dL (8.5-10.1)
[2022-03-06 08:22] LABS: CREATININE 1.1 mg/dL (0.55-1.3)
[2022-03-06 08:24] LABS: BILIRUBIN,TOTAL 0.8 mg/dL (0.2-1)
[2022-03-06 08:27] LABS: N-TERMINAL BNP 980.5 pg/ml (5-125)
[2022-03-06 08:32] LABS: MAGNESIUM 2.1 mg/dL (1.8-2.4)
[2022-03-06 08:36] LABS: PHOSPHOROUS 2.7 mg/dL (2.5-4.9)
[2022-03-06] MEDS ORDERED: PATIENT'S OWN MEDICATION (NON-FORMULARY) (Olmesartan Medoxomil [Olmesartan Medoxomil] 40 M PO SCH (11:00)
[2022-03-06] MEDS ORDERED: ACETAMINOPHEN 325 MG TABLET (FP) PO PRN (11:00)
[2022-03-06] MEDS ORDERED: CLOPIDOGREL BISULFATE 75 MG TABLET (FP) ONE (12:25)
[2022-03-06] MEDS: INSULIN SLIDING SCALE (NOVOLOG) 1 VIAL SQ SCH ×3 (12:39→22:34)
[2022-03-06] MEDS: CLOPIDOGREL BISULFATE 75 MG TABLET (FP) PO SCH (12:40)
[2022-03-06] MEDS: SACUBITRIL/VALSARTAN 24 MG-26 MG TABLET PO SCH ×2 (12:40→22:33)
[2022-03-06] MEDS: FUROSEMIDE 40 MG/4 ML INJECTABLE VIAL IVPUSH SCH (14:00)
[2022-03-06] MEDS ORDERED: HEPARIN NA (PORCINE) 5,000 UNITS/ML 1ML VIAL ONE (22:25)
[2022-03-06] MEDS ORDERED: METOPROLOL TARTRATE 25 MG TABLET (FP) ONE (22:25)
[2022-03-06] MEDS: HEPARIN NA (PORCINE) 5,000 UNITS/ML 1ML VIAL SQ SCH (22:33)
[2022-03-06] MEDS: METOPROLOL TARTRATE 25 MG TABLET (FP) PO SCH (22:33)
[2022-03-07] MEDS: FUROSEMIDE 40 MG/4 ML INJECTABLE VIAL IVPUSH SCH ×2 (06:22→14:14)
[2022-03-07] MEDS: INSULIN SLIDING SCALE (NOVOLOG) 1 VIAL SQ SCH ×4 (06:22→21:34)
[2022-03-07 07:11] LABS: HEMATOCRIT 35.6 % (35.4-49); HEMOGLOBIN 11.9 GM/dL (11.7-16.9); MCH 29.8 pg (25.7-33.7); MCHC 33.4 g/dl (32.0-35.9); MEAN PLT VOLUME 8.6 fl (7.5-11.1); PLATELET COUNT 254 10^3/uL (134-434); RBC 3.99 M/mm3 (4.00-5.60); RDW 14.7 % (11.9-15.9); WHITE BLOOD COUNT 6.4 K/mm3 (4.0-10.0)
[2022-03-07 07:47] LABS: ALBUMIN 3.2 g/dl (3.4-5.0); BLOOD UREA NITROGEN 14.2 mg/dL (7-18); CALCIUM 8.3 mg/dL (8.5-10.1)
[2022-03-07 07:48] LABS: MAGNESIUM 2.1 mg/dL (1.8-2.4)
[2022-03-07 07:49] LABS: BILIRUBIN,TOTAL 0.7 mg/dL (0.2-1); TOT PROT 6.5 g/dl (6.4-8.2)
[2022-03-07 07:50] LABS: CREATININE 0.9 mg/dL (0.55-1.3)
[2022-03-07] MEDS: ATORVASTATIN CA 80 MG TABLET (FP) PO SCH (10:31)
[2022-03-07] MEDS: METOPROLOL TARTRATE 25 MG TABLET (FP) PO SCH ×2 (10:31→21:35)
[2022-03-07] MEDS: CLOPIDOGREL BISULFATE 75 MG TABLET (FP) PO SCH (10:31)
[2022-03-07] MEDS: SACUBITRIL/VALSARTAN 24 MG-26 MG TABLET PO SCH ×2 (10:31→21:35)
[2022-03-07] MEDS: ASPIRIN 81 MG CHEWABLE TABLETS PO SCH (10:31)
[2022-03-07] MEDS: MULTIVITAMINS (DAILY MVI) TABLET (FP) PO SCH (10:31)
[2022-03-07] MEDS: HEPARIN NA (PORCINE) 5,000 UNITS/ML 1ML VIAL SQ SCH ×2 (10:31→21:35)
[2022-03-07] MEDS: INSULIN (LEVEMIR) 100 UNITS/ML UNITS SQ SCH (21:34)
[2022-03-08] MEDS: FUROSEMIDE 40 MG/4 ML INJECTABLE VIAL IVPUSH SCH ×2 (06:51→15:25)
[2022-03-08] MEDS: INSULIN SLIDING SCALE (NOVOLOG) 1 VIAL SQ SCH ×4 (06:51→22:02)
[2022-03-08 07:59] LABS: BLOOD UREA NITROGEN 18.9 mg/dL (7-18); CALCIUM 8.3 mg/dL (8.5-10.1)
[2022-03-08] MEDS: SACUBITRIL/VALSARTAN 24 MG-26 MG TABLET PO SCH ×2 (10:00→21:56)
[2022-03-08] MEDS: CLOPIDOGREL BISULFATE 75 MG TABLET (FP) PO SCH (10:00)
[2022-03-08] MEDS: ATORVASTATIN CA 80 MG TABLET (FP) PO SCH (10:00)
[2022-03-08] MEDS: HEPARIN NA (PORCINE) 5,000 UNITS/ML 1ML VIAL SQ SCH ×2 (10:00→21:56)
[2022-03-08] MEDS: ASPIRIN 81 MG CHEWABLE TABLETS PO SCH (10:00)
[2022-03-08] MEDS: METOPROLOL TARTRATE 25 MG TABLET (FP) PO SCH ×2 (10:00→21:56)
[2022-03-08] MEDS: MULTIVITAMINS (DAILY MVI) TABLET (FP) PO SCH (10:00)
[2022-03-08] MEDS: INSULIN (LEVEMIR) 100 UNITS/ML UNITS SQ SCH ×2 (10:01→22:01)
[2022-03-09] MEDS: INSULIN SLIDING SCALE (NOVOLOG) 1 VIAL SQ SCH ×3 (06:52→17:33)
[2022-03-09] MEDS: FUROSEMIDE 40 MG/4 ML INJECTABLE VIAL IVPUSH SCH ×2 (06:52→17:26)
[2022-03-09] MEDS: HEPARIN NA (PORCINE) 5,000 UNITS/ML 1ML VIAL SQ SCH (10:08)
[2022-03-09] MEDS: MULTIVITAMINS (DAILY MVI) TABLET (FP) PO SCH (10:08)
[2022-03-09] MEDS: SACUBITRIL/VALSARTAN 24 MG-26 MG TABLET PO SCH (10:08)
[2022-03-09] MEDS: ASPIRIN 81 MG CHEWABLE TABLETS PO SCH (10:08)
[2022-03-09] MEDS: METOPROLOL TARTRATE 25 MG TABLET (FP) PO SCH (10:08)
[2022-03-09] MEDS: INSULIN (LEVEMIR) 100 UNITS/ML UNITS SQ SCH (10:08)
[2022-03-09] MEDS: ATORVASTATIN CA 80 MG TABLET (FP) PO SCH (10:08)
[2022-03-09] MEDS: CLOPIDOGREL BISULFATE 75 MG TABLET (FP) PO SCH (10:08)
[2022-03-09 11:32] VITALS: TEMP 98.2
[2022-03-09 15:32] VITALS: RESP 18
[2022-03-09 18:14] VITALS: BP 157/80; PULSE 80
[2022-03-09] MEDS ORDERED: INSULIN (LEVEMIR) 100 UNITS/ML UNITS SQ SCH (22:00)
== END 2022-03-09 22:29 | disposition short-term general hospital (02) | DRG 280 ==
LOC: JER 06:56 → JERBED 07:56 → J4W 03-07 01:01
PROVIDERS: ADMIT Internal Medicine; ATTEND Internal Medicine
DX: I11.0 Hypertensive heart disease with heart failure (principal); I21.4 Non-ST elevation (NSTEMI) myocardial infarction; I50.23 Acute on chronic systolic (congestive) heart failure; E78.5 Hyperlipidemia, unspecified; E11.9 Type 2 diabetes mellitus without complications; E66.9 Obesity, unspecified; Z68.39 Body mass index [BMI] 39.0-39.9, adult; I73.9 Peripheral vascular disease, unspecified; R77.8 Other specified abnormalities of plasma proteins; R79.89 Other specified abnormal findings of blood chemistry
CPT/HCPCS: 0241U-QW; 36415; 71045-TC-FY; 78472-TC; 80048; 80053; 80061; 82962; 83036; 83690; 83735; 83880; 84100; 84443; 84484; 85025; 85027; 85610; 85730; 93005; 93010; 93306-TC; 93970-TC; 94660; 99285-25; A9538; J1644

== ENCOUNTER 2024-05-15 10:53 | Inpatient (IN) | payer OTHER ==
[2024-05-15 12:46] LABS: BASO % 0.5 % (0-2.0); EOS % 1.9 % (0-4.5); LYMPH % 16.5 % (8-40); MCH 29.8 pg (25.7-33.7); MCHC 34.3 g/dl (32.0-35.9); MEAN CELL VOLUME 87.1 fl (80-96); MEAN PLT VOLUME 6.1 fl (7.5-11.1); MONO % 10.8 % (3.8-10.2); NEUT % 70.3 % (42.8-82.8); PLATELET COUNT 611 10^3/uL (134-434); RBC 3.67 M/mm3 (4.00-5.60); RDW 13.9 % (11.9-15.9); WHITE BLOOD COUNT 9.5 K/mm3 (4.0-10.0)
[2024-05-15 13:13] LABS: ALBUMIN 2.5 g/dl (3.4-5.0); BLOOD UREA NITROGEN 19.4 mg/dL (7-18); CALCIUM 9.1 mg/dL (8.5-10.1)
[2024-05-15 13:14] LABS: MAGNESIUM 2.1 mg/dL (1.8-2.4)
[2024-05-15 13:18] LABS: BILIRUBIN,TOTAL 0.5 mg/dL (0.2-1)
[2024-05-15] MEDS ORDERED: CEPHALEXIN MONOHYDRATE 500 MG CAPSULE (UD) ONE (13:54)
[2024-05-15] MEDS: CEPHALEXIN MONOHYDRATE 500 MG CAPSULE (UD) PO ONE (13:58)
[2024-05-15] MEDS ORDERED: PIPERACILLIN/TAZOB 3.375 GM 3.375 GM/50 ML BAG IVPB ONE (14:18)
[2024-05-15] MEDS ORDERED: VANCOMYCIN 1 GM PREMIX (F) 1 GM/200 ML BAG ONE (14:19)
[2024-05-15] MEDS: PIPERACILLIN/TAZOB 3.375 GM 3.375 GM in DEXTROSE 5%-WATER - 50 ML IVPB ONE (14:29)
[2024-05-15] MEDS: VANCOMYCIN 1,000 MG in DEXTROSE 5%-WATER - 250 ML IVPB ONE (14:46)
[2024-05-15] MEDS ORDERED: VANCOMYCIN 1 GM PREMIX (F) 1 GM/200 ML BAG IVPB SCH (16:15)
[2024-05-15 16:24] LABS: ERYTHROCYTE SEDIMENTATION RATE 53 mm/hr (0-20)
[2024-05-15] MEDS ORDERED: MEROPENEM 1 GM in DEXTROSE 5%-WATER 100 ML IVPB SCH (16:30)
[2024-05-15] MEDS: ENOXAPARIN NA (PORCINE) 40 MG/0.4 ML DISP.SYRIN SQ SCH (16:35)
[2024-05-15 16:44] LABS: HIV INTERPRETATION NEGATIVE (NEGATIVE)
[2024-05-15] MEDS ORDERED: NITROGLYCERIN SUBLINGUAL 1/150 0.4 MG TAB SL PRN (17:00)
[2024-05-15] MEDS ORDERED: PIPERACILLIN/TAZOB 2.25 GM 2.25 GM in DEXTROSE 5%-WATER - 50 ML IVPB SCH (18:00)
[2024-05-15] MEDS: MEROPENEM-0.9% SODIUM CHLORIDE 1 GM/50 ML BAG IVPB SCH (18:35)
[2024-05-15] MEDS: ATORVASTATIN CA 40 MG TABLET (FP) PO SCH (21:27)
[2024-05-15] MEDS: INSULIN ASPART SLIDING SCALE (NOVOLOG) 1 VIAL SQ SCH (21:28)
[2024-05-16] MEDS: VANCOMYCIN/WATER FOR INJ (PEG) 1 GM/200 ML BAG IVPB SCH (02:08)
[2024-05-16] MEDS: EMPAGLIFLOZIN (JARDIANCE) 10 MG TABLET PO SCH (06:43)
[2024-05-16 09:14] LABS: POTASSIUM 4.4 mmol/L (3.5-5.1)
[2024-05-16 09:24] LABS: CALCIUM 8.5 mg/dL (8.5-10.1)
[2024-05-16 09:25] LABS: ALBUMIN 2.3 g/dl (3.4-5.0); BLOOD UREA NITROGEN 17.1 mg/dL (7-18)
[2024-05-16 09:28] LABS: CREATININE 0.9 mg/dL (0.55-1.3)
[2024-05-16 09:29] LABS: BILIRUBIN,TOTAL 0.5 mg/dL (0.2-1); TOT PROT 6.7 g/dl (6.4-8.2)
[2024-05-16] MEDS: PANTOPRAZOLE 40 MG TABLET PO SCH (09:58)
[2024-05-16] MEDS: ASPIRIN 81 MG CHEWABLE TABLETS PO SCH (09:58)
[2024-05-16] MEDS: LOSARTAN POTASSIUM 50 MG TABLET PO SCH (09:58)
[2024-05-16] MEDS: CLOPIDOGREL BISULFATE 75 MG TABLET (FP) PO SCH (09:58)
[2024-05-16] MEDS: ISOSORBIDE MONONITRATE 30 MG TAB.SR.24H (FP) PO SCH (09:58)
[2024-05-16] MEDS: FUROSEMIDE 20 MG TABLET (FP) PO SCH (09:59)
[2024-05-16] MEDS: EZETIMIBE 10 MG TABLET (FP) PO SCH (09:59)
[2024-05-16 11:07] LABS: BASO % 1.3 % (0-2.0); EOS % 2.8 % (0-4.5); HEMATOCRIT 31.8 % (35.4-49); HEMOGLOBIN 10.5 GM/dL (11.7-16.9); LYMPH % 18.4 % (8-40); MCH 29.4 pg (25.7-33.7); MCHC 33.2 g/dl (32.0-35.9); MEAN CELL VOLUME 88.6 fl (80-96); MEAN PLT VOLUME 6.6 fl (7.5-11.1); MONO % 8.2 % (3.8-10.2); NEUT % 69.3 % (42.8-82.8); PLATELET COUNT 555 10^3/uL (134-434); RBC 3.59 M/mm3 (4.00-5.60); RDW 13.9 % (11.9-15.9); WHITE BLOOD COUNT 9.9 K/mm3 (4.0-10.0)
[2024-05-16] MEDS: INSULIN (NOVOLOG) ASPART 100 UNITS/ML 10ML VIAL SQ SCH (12:25)
[2024-05-16] MEDS: CEFAZOLIN 2 GM/D5W 2 GM/50 ML ML IVPB SCH (17:48)
[2024-05-17 09:05] LABS: HEMATOCRIT 33.4 % (35.4-49); HEMOGLOBIN 10.9 GM/dL (11.7-16.9); MCHC 32.7 g/dl (32.0-35.9); MEAN CELL VOLUME 88.6 fl (80-96); MEAN PLT VOLUME 6.3 fl (7.5-11.1); PLATELET COUNT 577 10^3/uL (134-434); RBC 3.77 M/mm3 (4.00-5.60); RDW 14.1 % (11.9-15.9); WHITE BLOOD COUNT 8.5 K/mm3 (4.0-10.0)
[2024-05-17 09:28] LABS: POTASSIUM 4.2 mmol/L (3.5-5.1)
[2024-05-17 09:36] LABS: ALBUMIN 2.4 g/dl (3.4-5.0)
[2024-05-17 09:37] LABS: BLOOD UREA NITROGEN 16.4 mg/dL (7-18); CALCIUM 8.8 mg/dL (8.5-10.1); CREATININE 1.1 mg/dL (0.55-1.3)
[2024-05-17 09:38] LABS: BILIRUBIN,TOTAL 0.3 mg/dL (0.2-1); TOT PROT 7.1 g/dl (6.4-8.2)
[2024-05-17 09:49] LABS: N-TERMINAL BNP 905.3 pg/ml (5-125)
[2024-05-17] MEDS: COLLAGENASE CLOSTRIDIUM HIST. 30 GRAMS TUBE TP SCH (11:00)
[2024-05-17] MEDS: FUROSEMIDE 40 MG/4 ML INJECTABLE VIAL IVPUSH SCH (11:02)
[2024-05-17] MEDS: PIPERACILLIN/TAZOB 3.375 GM 50 ML IVPB SCH (15:05)
[2024-05-17 15:57] VITALS: BMI 39.9
[2024-05-17] MEDS: MULTIVITAMINS (DAILY MVI) TABLET (FP) PO SCH (16:34)
[2024-05-17] MEDS: ASCORBIC ACID 500 MG TABLET (FP) PO SCH (21:27)
[2024-05-18] MEDS: CLOPIDOGREL BISULFATE 75 MG TABLET (FP) PO SCH (10:09)
[2024-05-19 08:21] LABS: HEMATOCRIT 33.4 % (35.4-49); HEMOGLOBIN 11.5 GM/dL (11.7-16.9); MCH 29.9 pg (25.7-33.7); MCHC 34.5 g/dl (32.0-35.9); MEAN CELL VOLUME 86.5 fl (80-96); MEAN PLT VOLUME 6.3 fl (7.5-11.1); PLATELET COUNT 546 10^3/uL (134-434); RBC 3.87 M/mm3 (4.00-5.60); RDW 14.3 % (11.9-15.9); WHITE BLOOD COUNT 8.1 K/mm3 (4.0-10.0)
[2024-05-19 08:34] LABS: POTASSIUM 4.3 mmol/L (3.5-5.1)
[2024-05-19 08:41] LABS: BLOOD UREA NITROGEN 24.5 mg/dL (7-18); CALCIUM 8.6 mg/dL (8.5-10.1)
[2024-05-19 08:44] LABS: CREATININE 1.2 mg/dL (0.55-1.3)
[2024-05-20] MEDS ORDERED: HEPARIN NA (PORCINE) 5,000 UNITS/ML 1ML VIAL ONE ×2 (07:25→14:02)
[2024-05-20] MEDS ORDERED: LIDOCAINE HCL 1%, 10 MG/ML (20ML VIAL) ONE (07:25)
[2024-05-20 08:50] LABS: EOS % 2.7 % (0-4.5); HEMATOCRIT 33.4 % (35.4-49); HEMOGLOBIN 11.1 GM/dL (11.7-16.9); LYMPH % 19.8 % (8-40); MCH 29.5 pg (25.7-33.7); MCHC 33.3 g/dl (32.0-35.9); MEAN CELL VOLUME 88.5 fl (80-96); MEAN PLT VOLUME 6.5 fl (7.5-11.1); MONO % 6.1 % (3.8-10.2); NEUT % 70.4 % (42.8-82.8); PLATELET COUNT 556 10^3/uL (134-434); RBC 3.77 M/mm3 (4.00-5.60); RDW 13.9 % (11.9-15.9); WHITE BLOOD COUNT 8.7 K/mm3 (4.0-10.0)
[2024-05-20 08:52] LABS: INR 1.07 (0.83-1.09); PROTHROMBIN TIME (PATIENT) 12.3 SEC (9.7-13.0)
[2024-05-20 09:02] LABS: POTASSIUM 4.4 mmol/L (3.5-5.1)
[2024-05-20 09:08] LABS: CALCIUM 8.9 mg/dL (8.5-10.1)
[2024-05-20 09:09] LABS: ALBUMIN 2.5 g/dl (3.4-5.0); BLOOD UREA NITROGEN 22.4 mg/dL (7-18)
[2024-05-20 09:12] LABS: CREATININE 1.1 mg/dL (0.55-1.3)
[2024-05-20 09:13] LABS: BILIRUBIN,TOTAL 0.4 mg/dL (0.2-1)
[2024-05-20 09:14] LABS: TOT PROT 7.3 g/dl (6.4-8.2)
[2024-05-20] MEDS ORDERED: PROPOFOL 20 ML ONE (13:02)
[2024-05-20] MEDS ORDERED: LIDOCAINE HCL/PF 2% SDV 5ML VIAL ONE (13:02)
[2024-05-20] MEDS ORDERED: MIDAZOLAM HCL 2 MG/2 ML SINGLE DOSE VIAL ONE (13:02)
[2024-05-20] MEDS: LIDOCAINE HCL 1%, 10 MG/ML (20ML VIAL) NR ONE ×2 (13:46)
[2024-05-20] MEDS ORDERED: VERAPAMIL HCL 5 MG/2 ML VIAL IVPUSH ONE (14:37)
[2024-05-20] MEDS ORDERED: ONDANSETRON 4 MG/2 ML VIAL IVPUSH PRN ×2 (15:14→15:39)
[2024-05-20] MEDS ORDERED: NITROGLYCERIN SUBLINGUAL 1/150 0.4 MG TAB SL PRN (15:39)
[2024-05-20] MEDS: INSULIN ASPART SLIDING SCALE (NOVOLOG) 1 VIAL SQ SCH (16:15)
[2024-05-20] MEDS: INSULIN (NOVOLOG) ASPART 100 UNITS/ML 10ML VIAL SQ SCH (16:16)
[2024-05-20] MEDS: CLOPIDOGREL BISULFATE 75 MG TABLET (FP) PO SCH (16:20)
[2024-05-20] MEDS: PIPERACILLIN/TAZOB 3.375 GM 50 ML IVPB SCH (17:37)
[2024-05-20] MEDS: ASCORBIC ACID 500 MG TABLET (FP) PO SCH (21:31)
[2024-05-20] MEDS: ATORVASTATIN CA 40 MG TABLET (FP) PO SCH (21:32)
[2024-05-21] MEDS: EMPAGLIFLOZIN (JARDIANCE) 10 MG TABLET PO SCH (06:19)
[2024-05-21 09:24] LABS: HEMOGLOBIN 11.5 GM/dL (11.7-16.9); MCHC 33.9 g/dl (32.0-35.9); MEAN CELL VOLUME 88.4 fl (80-96); MEAN PLT VOLUME 6.4 fl (7.5-11.1); PLATELET COUNT 542 10^3/uL (134-434); RBC 3.84 M/mm3 (4.00-5.60); RDW 13.9 % (11.9-15.9); WHITE BLOOD COUNT 9.1 K/mm3 (4.0-10.0)
[2024-05-21 09:42] LABS: POTASSIUM 4.4 mmol/L (3.5-5.1)
[2024-05-21 09:47] LABS: POTASSIUM 5.1 mmol/L (3.5-5.1)
[2024-05-21 09:50] LABS: ALBUMIN 2.5 g/dl (3.4-5.0); BLOOD UREA NITROGEN 26.5 mg/dL (7-18); CALCIUM 8.6 mg/dL (8.5-10.1)
[2024-05-21 09:54] LABS: CREATININE 1.1 mg/dL (0.55-1.3)
[2024-05-21 09:55] LABS: BILIRUBIN,TOTAL 0.5 mg/dL (0.2-1); TOT PROT 7.4 g/dl (6.4-8.2)
[2024-05-21 09:58] LABS: N-TERMINAL BNP 657.2 pg/ml (5-125)
[2024-05-21] MEDS ORDERED: FUROSEMIDE 40 MG/4 ML INJECTABLE VIAL IVPUSH SCH (10:00)
[2024-05-21 10:07] LABS: CALCIUM 8.7 mg/dL (8.5-10.1)
[2024-05-21 10:08] LABS: BLOOD UREA NITROGEN 27.9 mg/dL (7-18)
[2024-05-21 10:11] LABS: CREATININE 1.1 mg/dL (0.55-1.3)
[2024-05-21] MEDS: MULTIVITAMINS (DAILY MVI) TABLET (FP) PO SCH (10:44)
[2024-05-21] MEDS: ISOSORBIDE MONONITRATE 30 MG TAB.SR.24H (FP) PO SCH (10:46)
[2024-05-21] MEDS: PANTOPRAZOLE 40 MG TABLET PO SCH (10:46)
[2024-05-21] MEDS: FUROSEMIDE 40 MG TABLET (FP) PO SCH (10:46)
[2024-05-21] MEDS: ASPIRIN 81 MG CHEWABLE TABLETS PO SCH (10:46)
[2024-05-21] MEDS: ENOXAPARIN NA (PORCINE) 40 MG/0.4 ML DISP.SYRIN SQ SCH (10:47)
[2024-05-21] MEDS: LOSARTAN POTASSIUM 50 MG TABLET PO SCH (10:47)
[2024-05-21] MEDS: EZETIMIBE 10 MG TABLET (FP) PO SCH (10:47)
[2024-05-21] MEDS: COLLAGENASE CLOSTRIDIUM HIST. 30 GRAMS TUBE TP SCH (10:55)
[2024-05-22 08:58] LABS: MCH 29.4 pg (25.7-33.7); MCHC 33.5 g/dl (32.0-35.9); MEAN CELL VOLUME 87.9 fl (80-96); MEAN PLT VOLUME 6.5 fl (7.5-11.1); PLATELET COUNT 504 10^3/uL (134-434); RBC 3.75 M/mm3 (4.00-5.60); RDW 14.1 % (11.9-15.9); WHITE BLOOD COUNT 8.1 K/mm3 (4.0-10.0)
[2024-05-22 09:51] LABS: POTASSIUM 3.9 mmol/L (3.5-5.1)
[2024-05-22 09:55] LABS: ALBUMIN 2.6 g/dl (3.4-5.0); BLOOD UREA NITROGEN 21.3 mg/dL (7-18); CALCIUM 8.5 mg/dL (8.5-10.1)
[2024-05-22 09:59] LABS: CREATININE 1.1 mg/dL (0.55-1.3)
[2024-05-22 10:00] LABS: TOT PROT 7.3 g/dl (6.4-8.2)
[2024-05-22 10:30] LABS: BILIRUBIN,TOTAL 0.4 mg/dL (0.2-1)
[2024-05-22] MEDS ORDERED: INSULIN ASPART SLIDING SCALE (NOVOLOG) 1 VIAL SQ ONE (11:27)
[2024-05-23 09:18] LABS: HEMATOCRIT 38.1 % (35.4-49); HEMOGLOBIN 12.5 GM/dL (11.7-16.9); MCH 29.2 pg (25.7-33.7); MCHC 32.8 g/dl (32.0-35.9); MEAN CELL VOLUME 89.2 fl (80-96); MEAN PLT VOLUME 6.7 fl (7.5-11.1); PLATELET COUNT 515 10^3/uL (134-434); RBC 4.27 M/mm3 (4.00-5.60); RDW 14.1 % (11.9-15.9)
[2024-05-23 09:24] LABS: POTASSIUM 4.4 mmol/L (3.5-5.1)
[2024-05-23 09:39] LABS: CALCIUM 9.3 mg/dL (8.5-10.1)
[2024-05-23 09:40] LABS: BLOOD UREA NITROGEN 18.2 mg/dL (7-18)
[2024-05-23 09:44] LABS: BILIRUBIN,TOTAL 0.5 mg/dL (0.2-1); TOT PROT 8.1 g/dl (6.4-8.2)
[2024-05-24 09:18] LABS: HEMATOCRIT 35.9 % (35.4-49); HEMOGLOBIN 11.8 GM/dL (11.7-16.9); MCH 29.2 pg (25.7-33.7); MCHC 32.8 g/dl (32.0-35.9); MEAN CELL VOLUME 89.2 fl (80-96); MEAN PLT VOLUME 6.9 fl (7.5-11.1); PLATELET COUNT 483 10^3/uL (134-434); RBC 4.03 M/mm3 (4.00-5.60); RDW 14.3 % (11.9-15.9); WHITE BLOOD COUNT 8.5 K/mm3 (4.0-10.0)
[2024-05-24 09:39] LABS: POTASSIUM 4.4 mmol/L (3.5-5.1)
[2024-05-24 09:45] LABS: BLOOD UREA NITROGEN 25.4 mg/dL (7-18); CALCIUM 8.8 mg/dL (8.5-10.1)
[2024-05-24 09:46] LABS: ALBUMIN 2.8 g/dl (3.4-5.0)
[2024-05-24 09:49] LABS: CREATININE 1.1 mg/dL (0.55-1.3)
[2024-05-24 09:50] LABS: BILIRUBIN,TOTAL 0.3 mg/dL (0.2-1); TOT PROT 7.6 g/dl (6.4-8.2)
[2024-05-25 08:20] LABS: POTASSIUM 4.3 mmol/L (3.5-5.1)
[2024-05-25 08:25] LABS: ALBUMIN 2.8 g/dl (3.4-5.0); CALCIUM 8.8 mg/dL (8.5-10.1)
[2024-05-25 08:26] LABS: BLOOD UREA NITROGEN 20.4 mg/dL (7-18)
[2024-05-25 08:30] LABS: BILIRUBIN,TOTAL 0.5 mg/dL (0.2-1); TOT PROT 7.7 g/dl (6.4-8.2)
[2024-05-25 08:40] LABS: INR 1.1 (0.83-1.09); PROTHROMBIN TIME (PATIENT) 12.4 SEC (9.7-13.0)
[2024-05-26] MEDS ORDERED: PROPOFOL 20 ML ONE (11:30)
[2024-05-26] MEDS ORDERED: MIDAZOLAM HCL 2 MG/2 ML SINGLE DOSE VIAL ONE (11:30)
[2024-05-26] MEDS: LIDOCAINE HCL 2% (50ML VIAL) NR ONE (11:36)
[2024-05-26] MEDS ORDERED: NITROGLYCERIN SUBLINGUAL 1/150 0.4 MG TAB SL PRN (12:43)
[2024-05-26] MEDS: INSULIN (NOVOLOG) ASPART 100 UNITS/ML 10ML VIAL SQ SCH (16:10)
[2024-05-26] MEDS: INSULIN ASPART SLIDING SCALE (NOVOLOG) 1 VIAL SQ SCH (16:10)
[2024-05-26] MEDS: PIPERACILLIN/TAZOB 3.375 GM 3.375 GM in DEXTROSE 5%-WATER - 50 ML IVPB SCH (17:04)
[2024-05-26] MEDS ORDERED: oxyCODONE HCL 5 MG TABLET PO PRN (19:36)
[2024-05-26] MEDS: ASCORBIC ACID 500 MG TABLET (FP) PO SCH (22:56)
[2024-05-26] MEDS: ATORVASTATIN CA 40 MG TABLET (FP) PO SCH (22:56)
[2024-05-27] MEDS: EMPAGLIFLOZIN (JARDIANCE) 10 MG TABLET PO SCH (06:21)
[2024-05-27 08:12] LABS: BASO % 0.8 % (0-2.0); EOS % 2.9 % (0-4.5); HEMATOCRIT 35.1 % (35.4-49); HEMOGLOBIN 11.5 GM/dL (11.7-16.9); LYMPH % 15.6 % (8-40); MCH 28.6 pg (25.7-33.7); MCHC 32.7 g/dl (32.0-35.9); MEAN CELL VOLUME 87.6 fl (80-96); MEAN PLT VOLUME 6.9 fl (7.5-11.1); MONO % 6.5 % (3.8-10.2); NEUT % 74.2 % (42.8-82.8); PLATELET COUNT 441 10^3/uL (134-434); RBC 4.01 M/mm3 (4.00-5.60); WHITE BLOOD COUNT 8.1 K/mm3 (4.0-10.0)
[2024-05-27 08:23] LABS: HEMATOCRIT 35.5 % (35.4-49); HEMOGLOBIN 11.7 GM/dL (11.7-16.9); MCH 28.9 pg (25.7-33.7); MCHC 33.1 g/dl (32.0-35.9); MEAN CELL VOLUME 87.3 fl (80-96); MEAN PLT VOLUME 7.1 fl (7.5-11.1); PLATELET COUNT 437 10^3/uL (134-434); RBC 4.06 M/mm3 (4.00-5.60); WHITE BLOOD COUNT 8.2 K/mm3 (4.0-10.0)
[2024-05-27 08:28] LABS: POTASSIUM 4.3 mmol/L (3.5-5.1)
[2024-05-27 08:30] LABS: CALCIUM 8.8 mg/dL (8.5-10.1)
[2024-05-27 08:31] LABS: ALBUMIN 2.7 g/dl (3.4-5.0); BLOOD UREA NITROGEN 21.5 mg/dL (7-18)
[2024-05-27 08:35] LABS: BILIRUBIN,TOTAL 0.4 mg/dL (0.2-1)
[2024-05-27 08:37] LABS: TOT PROT 7.4 g/dl (6.4-8.2)
[2024-05-27] MEDS: ISOSORBIDE MONONITRATE 30 MG TAB.SR.24H (FP) PO SCH (09:06)
[2024-05-27] MEDS: FUROSEMIDE 40 MG TABLET (FP) PO SCH (09:06)
[2024-05-27] MEDS: DOCUSATE SODIUM 100 MG CAPSULE (FP) PO SCH (09:07)
[2024-05-27] MEDS: MULTIVITAMINS (DAILY MVI) TABLET (FP) PO SCH (09:07)
[2024-05-27] MEDS: CLOPIDOGREL BISULFATE 75 MG TABLET (FP) PO SCH (09:07)
[2024-05-27] MEDS: EZETIMIBE 10 MG TABLET (FP) PO SCH (09:07)
[2024-05-27] MEDS: ZINC SULFATE 220 MG CAPSULE (FP) PO SCH (09:07)
[2024-05-27] MEDS: ASPIRIN 81 MG CHEWABLE TABLETS PO SCH (09:07)
[2024-05-27] MEDS: LOSARTAN POTASSIUM 50 MG TABLET PO SCH (09:07)
[2024-05-27] MEDS: PANTOPRAZOLE 40 MG TABLET PO SCH (09:07)
[2024-05-27] MEDS: ENOXAPARIN NA (PORCINE) 40 MG/0.4 ML DISP.SYRIN SQ SCH (09:08)
[2024-05-27] MEDS: COLLAGENASE CLOSTRIDIUM HIST. 30 GRAMS TUBE TP SCH (09:27)
[2024-05-28 09:25] LABS: POTASSIUM 5.1 mmol/L (3.5-5.1)
[2024-05-28 09:27] LABS: BLOOD UREA NITROGEN 24.1 mg/dL (7-18); CALCIUM 8.9 mg/dL (8.5-10.1)
[2024-05-28 09:31] LABS: CREATININE 1.1 mg/dL (0.55-1.3)
[2024-05-28] MEDS: PIPERACILLIN/TAZOB 3.375 GM 50 ML IVPB SCH (10:24)
[2024-05-28] MEDS ORDERED: INSULIN ASPART SLIDING SCALE (NOVOLOG) 1 VIAL SQ ONE (11:58)
[2024-05-28 15:20] VITALS: RESP 18
[2024-05-29] MEDS: VANCOMYCIN/WATER 1250 MG 1,250 MG/250 ML BAG IVPB SCH (16:08)
[2024-05-30 10:39] LABS: HEMATOCRIT 36.4 % (35.4-49); HEMOGLOBIN 12.1 GM/dL (11.7-16.9); MCH 29.2 pg (25.7-33.7); MCHC 33.3 g/dl (32.0-35.9); MEAN CELL VOLUME 87.6 fl (80-96); MEAN PLT VOLUME 7.3 fl (7.5-11.1); PLATELET COUNT 408 10^3/uL (134-434); RBC 4.16 M/mm3 (4.00-5.60); RDW 14.4 % (11.9-15.9); WHITE BLOOD COUNT 7.7 K/mm3 (4.0-10.0)
[2024-05-30 11:03] LABS: POTASSIUM 4.3 mmol/L (3.5-5.1)
[2024-05-30 11:04] LABS: CALCIUM 8.6 mg/dL (8.5-10.1)
[2024-05-30 11:05] LABS: BLOOD UREA NITROGEN 21.5 mg/dL (7-18)
[2024-05-30] MEDS: VANCOMYCIN/WATER 1250 MG 1,250 MG/250 ML BAG IVPB SCH (18:04)
[2024-05-31] MEDS ORDERED: VANCOMYCIN HCL 1,500 MG in DEXTROSE 5%-WATER - 500 ML IVPB ONE (09:25)
[2024-05-31] MEDS: VANCOMYCIN/WATER 1250 MG 1,250 MG/250 ML BAG IVPB ONE (09:43)
[2024-05-31 13:57] VITALS: BP 147/89; PULSE 81; TEMP 98.6
== END 2024-05-31 15:43 | disposition home or self-care (01) | DRG 628 ==
LOC: JER 10:53 → JERBED 14:43 → J6S 15:19
PROVIDERS: ADMIT Internal Medicine; ATTEND Internal Medicine
PROC: 047R3ZZ Dilation of Right Posterior Tibial Artery, Percutaneous Approach (ICD-10-PCS; 2024-05-20)
PROC: 04CR3ZZ Extirpation of Matter from Right Posterior Tibial Artery, Percutaneous Approach (ICD-10-PCS; principal; 2024-05-20 12:00)
PROC: 0QBN0ZZ Excision of Right Metatarsal, Open Approach (ICD-10-PCS; 2024-05-26)
PROC: 0YBM0ZX Excision of Right Foot, Open Approach, Diagnostic (ICD-10-PCS; 2024-05-26)
PROC: 02HV33Z Insertion of Infusion Device into Superior Vena Cava, Percutaneous Approach (ICD-10-PCS; 2024-05-29)
PROC: B548ZZA Ultrasonography of Superior Vena Cava, Guidance (ICD-10-PCS; 2024-05-29)
DX: E11.69 Type 2 diabetes mellitus with other specified complication (principal); I50.33 Acute on chronic diastolic (congestive) heart failure; L03.115 Cellulitis of right lower limb; Z68.41 Body mass index [BMI] 40.0-44.9, adult; M86.171 Other acute osteomyelitis, right ankle and foot; E87.1 Hypo-osmolality and hyponatremia; E78.5 Hyperlipidemia, unspecified; E11.51 Type 2 diabetes mellitus with diabetic peripheral angiopathy without gangrene; D64.9 Anemia, unspecified; E66.9 Obesity, unspecified; I11.0 Hypertensive heart disease with heart failure; E11.40 Type 2 diabetes mellitus with diabetic neuropathy, unspecified; I25.10 Atherosclerotic heart disease of native coronary artery without angina pectoris; D63.8 Anemia in other chronic diseases classified elsewhere; K21.9 Gastro-esophageal reflux disease without esophagitis; E11.621 Type 2 diabetes mellitus with foot ulcer; L97.519 Non-pressure chronic ulcer of other part of right foot with unspecified severity; D75.839 Thrombocytosis, unspecified
CPT/HCPCS: 0241U-QW; 36415; 36569; 71045-TC-FY; 73552-TC-RT-FY; 73590-TC-RT-FY; 73630-TC-RT-FY; 73718-TC-RT; 76000-TC-FY; 80048; 80053; 80061; 82962; 83036; 83735; 83880; 84439; 84443; 84484; 85025; 85027; 85610; 85651; 85730; 86140; 86803; 86850; 86900; 86901; 87040; 87070; 87075; 87081; 87186; 87205; 87389; 88304-TC; 88307-TC; 88311-TC; 93005; 93010; 93306-TC; 93922; 93925-TC; 94760; 99285-25; C1760; C1894; G0480; J1644

== ENCOUNTER 2025-02-15 00:26 | Emergency (ER) | payer OTHER ==
[2025-02-15 01:06] VITALS: BP 107/60; RESP 22; TEMP 98.2; BMI 38.4
[2025-02-15 01:43] LABS: ABSOLUTE IMMATURE GRANULOCYTES 0.02 x10^3/uL (0.0-0.031); BASOPHILS # 0.06 x10^3/uL (0.01-0.08); EOSINOPHIL % 3.2 % (0.8-7.0); EOSINOPHILS # 0.26 x10^3/uL (0.04-0.54); MCHC 32.6 g/dl (32.3-36.5); MEAN CELL VOLUME 89.4 fl (79.0-92.2); MEAN PLT VOLUME 9.9 fl (9.4-12.4); MONOCYTE # 0.68 x10^3/uL (0.30-0.82); MONOCYTE % 8.4 % (5.3-12.2); RDW 14.6 % (12.2-16.4)
[2025-02-15 02:00] LABS: GLUCOSE,RANDOM 135.0 mg/dL (74-106)
[2025-02-15 02:01] LABS: TOT PROT 6.9 g/dl (6.4-8.2)
[2025-02-15 02:02] LABS: CO2 26.0 mmol/L (21-32)
[2025-02-15 02:03] LABS: ALK PHOS 84.0 U/L (40-150)
[2025-02-15 02:06] LABS: CREATININE 1.1 mg/dL (0.55-1.3); SGOT/AST 30.0 U/L (5-34); SGPT/ALT 14.0 U/L (0-55)
[2025-02-15 02:50] VITALS: PULSE 84
== END 2025-02-15 04:20 | disposition home or self-care (01) ==
LOC: JER 00:26
DX: G47.30 Sleep apnea, unspecified (principal); R06.02 Shortness of breath
CPT/HCPCS: 36415; 71045-TC-FY; 80053; 82962; 84484; 85025; 87637-QW; 93005; 93010; 99285-25